=== PATIENT | female | born 1955 | race Caucasian/White ===

== ENCOUNTER 2017-03-31 21:59 | Inpatient (IN) | payer BC, SELFPAY ==
[2017-03-31] MEDS ORDERED: Labetalol HCl 100 MG/20 ML VIAL ONE (22:43)
[2017-03-31 22:45] LABS: #Basophils 0.1 thou/uL (0.0-0.2); #Eosinphils 0.2 thou/uL (0.0-0.7); #Monocytes 0.7 thou/uL (0.11-0.59); #Neutrophils 5.2 thou/uL (1.40-6.50); %Basophils 0.8 % (0.0-1.0); %Eosinophils 2.4 % (0.0-10.0); %Lymphocytes 24.4 % (21.0-51.0); %Monocytes 8.7 % (0.0-10.0); Hematocrit 49.6 % (36.0-47.0); Mean Platelet Volume 7.8 fL (7.4-10.4); Red Blood Cell (RBC) Count 5.13 mill/uL (4.20-5.40); White Blood Cell (WBC) Count 8.1 thou/uL (4.8-10.8)
[2017-03-31 23:07] LABS: Troponin I Less than 0.010 ng/mL (< 0.028)
[2017-03-31 23:12] LABS: ALT (SGPT) 20 U/L (8-55); AST (SGOT) 24 U/L (5-34); Alkaline Phosphatase 80 U/L (40-150); Anion Gap 12 mmol/L (10-20); BUN (Urea Nitrogen) 8 mg/dL (9.8-20.1); Bilirubin, Total 0.3 mg/dL (0.2-1.2); Calc. Creatinine Clearance 0 mL/min (70-130); Carbon Dioxide 28 mmol/L (23-31); Chloride 95 mmol/L (98-107); Estimated GFR-MDRD 83; Globulin 4.2 g/dL (2.4-3.5); Protein, Total 8.7 g/dL (6.0-8.3)
[2017-03-31] MEDS ORDERED: niCARdipine 20MG In NaCl 0 MG/0 ML BAG ONE (23:33)
[2017-03-31] MEDS ORDERED: Ondansetron HCl/PF 4 MG/2 ML Vial ONE (23:33)
[2017-03-31] MEDS ORDERED: niCARdipine 20MG In NaCl 20 MG/200 ML BAG IVPB SCH (23:45)
--- NOTE | 2017-03-31 23:59 | CT ---
CT HEAD WITHOUT IV CONTRAST 03/31/17 HISTORY: Headache. FINDINGS: There is no evidence of a hemorrhage, acute infarction, mass effect, or midline shift. There is scat tered low density areas seen within the periventricular white matter, nonspecific, but likely attrib utable to mild chronic small vessel ischemic changes. There is no evidence of an acute cortical infa rction, hemorrhage, mass effect or midline shift. Ventricular system is normal in size, shape and po sition. There is minimal mucosal thickening in each maxillary antrum as well as involving the ethmoi raquel air cells. There does appear to be absence of ethmoidal air cells which may be related to prior surgery. Mastoid air cells are clear. Calvarial structures are intact. IMPRESSION: 1. No acute intracranial abnormality is demonstrated. 2. Mild chronic small vessel ischemic changes. 3. Minimal sinus disease. POS: [facility]
[2017-04-01 01:55] VITALS: BMI 26.9
[2017-04-01] MEDS ORDERED: cloNIDine HCl 0.1 MG TAB PO PRN (03:17)
[2017-04-01] MEDS ORDERED: Ondansetron HCl/PF 4 MG/2 ML Vial IVP PRN (03:17)
[2017-04-01] MEDS ORDERED: Acetaminophen 500 MG TAB PO PRN (03:17)
[2017-04-01] MEDS ORDERED: Ondansetron ODT 4 MG TAB PO PRN (03:17)
--- NOTE | 2017-04-01 04:21 | HP ---
DATE OF ADMISSION: 04/01/2017 PRIMARY CARE PHYSICIAN: Howard Brown M.D. CHIEF COMPLAINT: Headache. HISTORY OF PRESENT ILLNESS: This is a 61-year-old female, who presents to [facility] complaining of increasing headache progressing over the last 3 weeks. The patien t rates this pain is 10/10, engulfing her entire head without evidence of fever, neck stiffness, or recent sick contacts. The patient denied any specific trauma, injury or high-altitude exposure. Th e patient states her symptoms are basically relieved by nothing and felt like her headache would to be improved with the addition of lisinopril started by her primary care provider. The patient state s her blood pressure trend has been increasing on initial 10 mg of lisinopril at which point her lis inopril was doubled to 20 mg daily. The patient noted that her blood pressures remained high even o n the higher dose of lisinopril and had the associated headaches. The patient denies any visual dis turbance, unilateral weakness, difficulty with speech or epistaxis. The patient denies any specific chest pain, shortness of breath, lower extremity edema, orthopnea. In the emergency room, the jessie ent underwent general evaluation with blood pressures noted in the 210s over 150s. Patient received IV labetalol; however, pressure remained elevated. The patient was placed on a Cardene infusion wi th overall improvement in blood pressure trend. The patient was transferred to the critical care un it for further evaluation. PAST MEDICAL HISTORY: 1. Hypertension, recent diagnosis. 2. History of pancreatic neuroendocrine cancer. PAST SURGICAL HISTORY: Status post oophorectomy. CURRENT MEDICATIONS: 1. Lisinopril 20 mg p.o. daily. 2. Nasacort 1 spray in each naris daily. 3. Pulmicort. 4. Simvastatin 20 mg p.o. daily. ALLERGIES: No known drug allergies. FAMILY HISTORY: Positive for hypertension. SOCIAL HISTORY: Patient is , residing in [place], [place]. 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 Occasional social alcohol use. No tobacco or illicit drug use. Functional of all activities of daily living. REVIEW OF SYSTEMS: The following complete review of systems was negative, unless otherwise mentione d in the HPI or below: Constitutional: Weight loss or gain, ability to conduct usual activities. Skin: Rash, itching. Eyes: Double vision, pain. ENT/Mouth: Nose bleeding, neck stiffness, pain, tenderness. Cardiovascular: Palpitations, dyspnea on exertion, orthopnea. Respiratory: Shortnes s of breath, wheezing, cough, hemoptysis, fever or night sweats. Gastrointestinal: Poor appetite, abdominal pain, heartburn, nausea, vomiting, constipation, or diarrhea. Genitourinary: Urgency, fr equency, dysuria, nocturia. Musculoskeletal: Pain, swelling. Neurologic/Psychiatric: Anxiety, de pression. Allergy/Immunologic: Skin rash, bleeding tendency. PHYSICAL EXAMINATION: VITAL SIGNS: On admission, blood pressure 210/152, pulse 94, respiratory rate 16, temperature 98.3 degrees Fahrenheit, O2 saturation 97% on room air. GENERAL APPEARANCE: This is a 61-year-old female, alert and oriented x3, pleasant, in no acute distress. HEENT: Pupils are equal, round, and reactive to light and accommodation. Extraocular muscles are i ntact. No scleral icterus, no conjunctival injection. Nares patent. OP is clear. Teeth in good r epair. NECK: Supple, no cervical adenopathy, no thyromegaly, no carotid bruits, no JVD appreciated. Cervi yoni spine with full active and passive range of motion. CHEST: Lungs are clear to auscultation bilaterally. CARDIOVASCULAR: S1, S2 with tachycardia. ABDOMEN: Rounded, soft, nontender, nondistended. Bowel sounds are positive in all four quadrants. There is no hepatosplenomegaly, no abdominal bruits, no rebound or guarding appreciated. EXTREMITIES: Warm and dry with fair turgor. No clubbing, cyanosis, or asymmetric edema appreciated . Pulses palpable distally at the dorsalis pedis, posterior tibial, and popliteal arteries bilatera lly. Capillary refill less than 2 seconds. NEUROLOGIC: Cranial nerves II through XII are grossly intact. No focal or lateralizing signs appre ciated. PERTINENT LABORATORY AND X-RAY FINDINGS: Sodium 132, potassium 3.3, chloride 95, CO2 of 28, BUN 8, creatinine 0.71. Estimated GFR of 83, glucose 140, calcium 10.0. LFTs within normal limits. Tropo mattie negative x1. Albumin 4.5. CBC showed a white blood cell count of 8.1, hemoglobin 16, hematocri t 50, platelet count [address] of the brain without contrast dated 7, showed mild chronic ischemic white matter changes. No acute intracranial process identified. EK G dated 03/31/2017 by my interpretation, shows sinus mechanism with rates in the 80s. Normal R-wave progression noted in the precordial leads. Normal axis. No acute ST-T wave changes appreciated. ASSESSMENT AND PLAN: 1. Hypertensive emergency. We will continue Cardene infusion, titrating to maintain systolics less than 170. We will initiate metoprolol 25 mg p.o. b.i.d. in the a.m. Continue lisinopril 20 mg p.o . daily. We will continue to titrate antihypertensive regimen based on clinical response. Check 2D transthoracic echocardiogram in the a.m. Check TSH and magnesium level. 2. Hyponatremia. Etiology unclear. We will repeat sodium level in the a.m. 3. Hypokalemia. Replace KCl with 40 mEq p.o. b.i.d. and repeat potassium level in the a.m. 4. Hyperlipidemia. We will check fasting lipid profile in the a.m. Resume Zocor after confirmatio n of home dose. 5. Prophylaxis. Sequential compression devices while in bed. Pepcid 20 mg p.o. b.i.d. 6. Code status is FULL. Surrogate medical decision maker is patient's spouse.
[2017-04-01] MEDS: niCARdipine HCl 25 MG in Sodium Chloride 0.9% 250 ML 240 ML IVPB SCH ×2 (04:36→09:25)
[2017-04-01 04:44] LABS: Band 3 % (5-11); Hematocrit 46.6 % (36.0-47.0); Mean Platelet Volume 7.8 fL (7.4-10.4); Neutrophil 75 % (42-75); Red Blood Cell (RBC) Count 4.85 mill/uL (4.20-5.40); White Blood Cell (WBC) Count 9.9 thou/uL (4.8-10.8)
[2017-04-01 04:54] LABS: Anion Gap 12 mmol/L (10-20); BUN (Urea Nitrogen) 9 mg/dL (9.8-20.1); Calc. Creatinine Clearance 107 mL/min (70-130); Carbon Dioxide 27 mmol/L (23-31); Chloride 93 mmol/L (98-107); Cholesterol 201 mg/dl (< 200 Desired); Estimated GFR-MDRD Greater than 90; LDL Cholesterol, Calculated 116 mg/dL
[2017-04-01] MEDS: Metoprolol Tartrate 25 MG TAB PO SCH ×2 (08:35→22:03)
[2017-04-01] MEDS: Potassium Chloride 20 MEQ TAB PO SCH ×2 (08:35→16:33)
[2017-04-01] MEDS ORDERED: Famotidine 20 MG TAB PO SCH (09:00)
[2017-04-01] MEDS ORDERED: Lisinopril 20 MG TAB PO SCH (09:00)
[2017-04-01] MEDS ORDERED: Morphine Sulfate 2 MG/ML SYRINGE SLOW IVP PRN (09:41)
[2017-04-01] MEDS ORDERED: Labetalol HCl 100 MG/20 ML VIAL SLOW IVP PRN (09:45)
[2017-04-01] MEDS ORDERED: Hydrochlorothiazide 25 MG TAB PO SCH (09:45)
--- NOTE | 2017-04-01 09:47 | PDOC.PN ---
- Subjective Encounter Start Date: 04/01/17 Encounter Start Time: 09:45 Ms. Messer is complaining of a severe headache which has not improved much since last night. She also is feeling very nauseated. This started this morning. - Objective Resuscitation Status: Resuscitation Status FULL:Full Resuscitation MAR Reviewed: Yes Vital Signs & Weight: Vital Signs (12 hours) Temp Pulse Resp BP Pulse Ox 04/01/17 08:35 136/92 H 04/01/17 04:00 98.5 F 04/01/17 02:00 98.6 F 04/01/17 01:45 98.6 F 97 19 89 L Weight Weight 166 lb 14.239 oz Most Recent Monitor Data Heart Rate from ECG 107 NIBP 153/100 NIBP BP-Mean 114 Respiration from ECG 11 SpO2 97 I&O: 03/31/17 04/01/17 04/02/17 06:59 06:59 06:59 Intake Total 490 Output Total 650 Balance -160 Result Diagrams: 04/01/17 04:11 04/01/17 04:11 Phys Exam - Physical Examination HEENT: PERRLA Respiratory: no wheezing, no rales, no rhonchi, clear to auscultation bilateral Cardiovascular: RRR, no significant murmur Gastrointestinal: soft, non-tender, positive bowel sounds Musculoskeletal: no edema Dx/Plan (1) Hypertensive urgency Code(s): I16.0 - HYPERTENSIVE URGENCY Status: Acute (2) Pancreas cancer Status: Acute - Plan * Hypertensive Urgency- Will add Amlodipine, and Continue Metoprolol, and Lisinopril * Wean Cardene drip. * Patient says she has had hypertension for a few years now, but in the past few months it has been harder to control. Will check renal -vacular studies to screen for MADELIN, and may also consider Nephrology consult, given the hypokalemia , as Hyperaldosteronism is a possibility as well. * Headache- ? etiology- related to the elevated blood pressure? - will observe, and treat symptomatically * Hypokalemia- replace Potassium
[2017-04-01] MEDS: Fioricet 325/50/40 mg Tablet PO PRN ×2 (10:58→16:32)
--- NOTE | 2017-04-01 12:20 | CON ---
DATE OF CONSULTATION: 04/01/2017 SERVICE: Pulmonary Medicine. REASON FOR CONSULTATION: ICU patient. HISTORY OF PRESENT ILLNESS: The patient is a 61-year-old white female with past medical history significant for hypertension. She was in her usual state of health until roughly one day prior to admission. She had onset of atypical headache. She typically gets bifrontal headache with tension in her neck. She had a similar headache that which she typically gets but this was slightly more severe than her average headache. She took some medication, but it simply did not help. She had elevated blood pressure associated with this headache into the 150s to 160s and even 170s. She notified her primary care physician and took some additional blood pressure medication, but this did not control the headache or her blood pressure. She presented to the Emergency Department and her blood pressures were in the 200s. She was subsequently admitted to the ICU on a calcium channel na drip. She currently denies fevers, chills, nausea , vomiting, chest discomfort. The headache is much improved compared to presentation. PAST MEDICAL HISTORY: 1. Hypertension. 2. Dyslipidemia. 3. Laryngitis secondary to allergic issues. 4. Asthma. PAST SURGICAL HISTORY: Oophorectomy. ALLERGIES: No known drug allergies. MEDICATIONS: List of inpatient medications were reviewed. Multiple updates were made. FAMILY HISTORY: Noncontributory. SOCIAL HISTORY: The patient is and lives in [place]. She is self-employed. She uses alcohol occasionally. She denies any alcohol or illicit drug use. She has no exposure to chemicals, dust, asbestos, or tuberculosis. REVIEW OF SYSTEMS: General, head, ears, eyes, nose, throat, cardiovascular, respiratory, GI, , musculoskeletal, neurologic and skin is negative except as mentioned in the HPI. PHYSICAL EXAMINATION: VITAL SIGNS: Afebrile, pulse 107, blood pressure 153/100, respirations 11, saturation 97% on 2 liters nasal cannula. GENERAL: Patient is awake, alert, in no apparent distress. LUNGS: Excellent air entry with no prolonged expiratory phase wheeze, rhonchi or crackles. HEART: Normal rate, regular. ABDOMEN: Soft, nontender, nondistended, bowel sounds positive. MUSCULOSKELETAL: No cyanosis or clubbing. No pitting in the bilateral lower extremities. NEUROLOGIC: Grossly nonfocal. LABORATORY DATA: WBC 9.9, hemoglobin 15.9, platelets 316,000. Sodium 129 and down trending, potassium 3.2. Chloride 93. Basic metabolic profile is otherwise unremarkable. Liver function studies are normal. TSH was normal. Cholesterol was 201 with an LDL of 116. IMAGING: CT of the brain demonstrates no acute intracranial abnormality. Small chronic ischemic changes were present. Minimal sinus changes. ASSESSMENT: 1. Migraine headache, tension type. 2. Hypertension. 3. Asthma without current exacerbation. PLAN: We will continue the lisinopril. I will add hydrochlorothiazide to the patient's current drug regimen. I agree with metoprolol. This should help with headache and her blood pressure. Pulmonary Critical Care will continue to follow while she remains in this location, but when she is off the Cardizem drip , she will be stable for transition to the floor. GALDINO
[2017-04-01 15:09] LABS: Osmolality, Urine 453 mOsm/kg (300-900)
[2017-04-01 15:22] LABS: Sodium, Urine 85 mmol/L (Not Available)
--- NOTE | 2017-04-01 16:55 | ULT ---
BILATERAL RENAL AND RENAL ARTERY ULTRASOUND: Date: 04/01/17 HISTORY: Uncontrolled hypertension. TECHNIQUE: Multiplanar Stinson scale and color Doppler images were obtained in a bilateral renal and renal artery ultrasound. Spectral analysis of the Doppler waveforms of the aorta and renal arteries were performe d. FINDINGS: The kidneys are normal in echogenicity without hydronephrosis or calculi and measure 10.0 and 10.2 c m in length on the right and left, respectively. Limited visualization of the urinary bladder is unr emarkable. Peak systolic velocity in the aorta is 96 cm/second. Peak systolic velocity in the right renal arter y is 112 cm/second. Peak systolic velocity in the left renal artery is 123 cm/second. Right renal ar esetban to aortic ratio is 1.2. Left renal artery to aortic ratio is 1.3. The resistive index of the ri ght kidney is 0.67 and the resistive index of the left kidney is 0.65. IMPRESSION: No significant renal or renal artery abnormality. POS: [facility]
[2017-04-01 17:19] LABS: Anion Gap 10 mmol/L (10-20); BUN (Urea Nitrogen) 10 mg/dL (9.8-20.1); Calc. Creatinine Clearance 101 mL/min (70-130); Calcium 9.6 mg/dL (7.8-10.44); Carbon Dioxide 29 mmol/L (23-31); Chloride 94 mmol/L (98-107); Estimated GFR-MDRD 86
[2017-04-02 06:18] LABS: Anion Gap 13 mmol/L (10-20); BUN (Urea Nitrogen) 10 mg/dL (9.8-20.1); Calc. Creatinine Clearance 99 mL/min (70-130); Calcium 9.5 mg/dL (7.8-10.44); Carbon Dioxide 23 mmol/L (23-31); Chloride 97 mmol/L (98-107); Estimated GFR-MDRD 85
--- NOTE | 2017-04-02 08:18 | PDOC.PN ---
- Subjective Encounter Start Date: 04/02/17 Encounter Start Time: 08:16 Ms. Messer is feeling much better this morning. She says her headache finally went away yesterday. - Objective Resuscitation Status: Resuscitation Status FULL:Full Resuscitation MAR Reviewed: Yes Vital Signs & Weight: Vital Signs (12 hours) Temp Pulse Resp BP Pulse Ox 04/02/17 04:30 94 L 04/02/17 04:00 98.3 F 70 18 127/87 94 L 04/02/17 00:34 93 L 04/01/17 23:45 93 L Weight Weight 166 lb 1.6 oz Most Recent Monitor Data Heart Rate from ECG 76 NIBP 104/70 NIBP BP-Mean 79 Respiration from ECG 23 SpO2 96 I&O: 04/01/17 04/02/17 04/03/17 06:59 06:59 06:59 Intake Total 490 1526 Output Total 650 1575 Balance -160 -49 Result Diagrams: 04/01/17 04:11 04/02/17 05:22 Phys Exam - Physical Examination HEENT: PERRLA Respiratory: no wheezing, no rales, no rhonchi, clear to auscultation bilateral Cardiovascular: RRR, no significant murmur Gastrointestinal: soft, non-tender, positive bowel sounds Musculoskeletal: no edema Dx/Plan (1) Hypertensive urgency Code(s): I16.0 - HYPERTENSIVE URGENCY Status: Acute (2) Pancreas cancer Status: Acute - Plan * Hypertensive Urgency- resolved * Will continue Lisinopril, and Metoprolol * No HCTZ * Hyponatremia- is most consistent with SIADH, and will fluid restrict * Stable for discharge home.
[2017-04-02] MEDS: Metoprolol Tartrate 25 MG TAB PO SCH (08:41)
[2017-04-02] MEDS: Potassium Chloride 20 MEQ TAB PO SCH (08:41)
[2017-04-02] MEDS ORDERED: Lisinopril/Hydrochlorothiazide 20/25 mg Tablet PO SCH (09:00)
[2017-04-02] MEDS ORDERED: Lisinopril 20 MG TAB PO SCH (09:00)
[2017-04-02] MEDS: Fioricet 325/50/40 mg Tablet PO PRN (11:19)
[2017-04-02 12:09] VITALS: BP 104/71; TEMP 98.7
--- NOTE | 2017-04-02 20:03 | DIS ---
PRIMARY CARE PHYSICIAN: Howard Brown M.D. DATE OF ADMISSION: 04/01/2017 DATE OF DISCHARGE: 04/02/2017 DISCHARGE DISPOSITION: Home. PRIMARY DISCHARGE DIAGNOSES: 1. Hypertensive urgency. 2. Headache. 3. History of hypertension. 4. History of neuroendocrine pancreatic cancer, status post resection. DISCHARGE MEDICATIONS: Include lisinopril 20 mg daily, metoprolol 25 mg twice a day. PROCEDURES DONE DURING ADMISSION: The patient had a renal ultrasound with studies, which was essentially negative. There is no renal artery abnormality noted. She also had a CT scan of the br ain, which was negative for any acute intracranial abnormality. There was some mild chronic small v essel ischemic changes and some minimal sinus disease. CODE STATUS: FULL CODE. ALLERGIES: To OXYTETRACYCLINE. HOSPITAL COURSE: Ms. Messer is a pleasant 61-year-old female, who presented to the emergency room c omplaining of an excruciating headache. She says that was progressing over the last 3 weeks and it was engulfing her to entire head. There was no neck stiffness or fever. She was also noted to have a blood pressure with systolics in the 200s and it significantly 210/150. She was admitted to the ICU for hypertensive urgency and started on a Cardene drip; control was achieved of her blood pressu re with the Cardene drip and then the addition of metoprolol. It was also noted that her heart rate was slightly elevated as well. Her headache improved after approximately 24 hours and could possib ly be related to either sinus problems or to the elevated blood pressure. Her sodium was low during her hospital stay, initially at 132 and then actually dropped to 129. Her urine osmolality was abby ppropriately elevated at 453, compared to her serum osmolality, which was only 272, and it is felt t hat she likely has some mild SIADH and will be discharged home on a fluid restriction. Her potassiu m was initially low but was easily replaced without any significant potassium wasting. She has been instructed to follow up with Dr. Brown within a week to have her sodium and potassium rechecked a nd will be discharged home on a 1200 mL fluid restriction. The patient admits that she has been wor chente quite a few hours, sometimes up to 18 hours a day in the last few months and I suspect this con tributed to elevation in blood pressure as well.
== END 2017-04-02 12:27 | disposition home or self-care (01) | DRG 305 ==
LOC: ERS 21:59 → CCU 23:55 → 2NO 04-01 19:24
PROVIDERS: ADMIT Family Medicine; ATTEND Family Medicine
DX: I16.0 Hypertensive urgency (principal); E22.2 Syndrome of inappropriate secretion of antidiuretic hormone; I16.1 Hypertensive emergency; Z85.07 Personal history of malignant neoplasm of pancreas; I10 Essential (primary) hypertension; E87.6 Hypokalemia; E86.0 Dehydration; Z90.721 Acquired absence of ovaries, unilateral; E78.5 Hyperlipidemia, unspecified; G43.809 Other migraine, not intractable, without status migrainosus; J45.909 Unspecified asthma, uncomplicated
CPT/HCPCS: 36415; 70450; 76700; 76770; 80048; 80053; 80061; 82553; 83735; 83930; 83935; 84133; 84300; 84443; 84484; 85007; 85025; 85027; 93005; 93306; 96365; 96366; 96375; J2405; J7050

== ENCOUNTER 2017-05-19 16:18 | Inpatient (IN) | payer SELFPAY ==
[~2017-05-19 16:18] MED LIST: ISOVUE-370 76%-LOCM 1 ML ONE
[2017-05-19] MEDS ORDERED: Morphine 4 MG/ML VIAL ONE (17:12)
[2017-05-19] MEDS ORDERED: Ondansetron HCl/PF 4 MG/2 ML Vial ONE (17:12)
--- NOTE | 2017-05-19 17:19 | CT ---
CT HEAD: Indication: Pain, headache. Comparison: 03-31-17 FINDINGS: No evidence of intracranial hemorrhage, mass effect, midline shift or ventriculomegaly. There has bee n no significant interval detrimental change from recent comparison exam. IMPRESSION: Stable head CT without acute intracranial abnormality identified. POS: [facility]
[2017-05-19 17:27] LABS: #Lymphocytes 1.4 thou/uL (1.20-3.40); #Monocytes 0.7 thou/uL (0.11-0.59); #Neutrophils 5.9 thou/uL (1.40-6.50); %Basophils 0.6 % (0.0-1.0); %Eosinophils 0.5 % (0.0-10.0); %Lymphocytes 17.6 % (21.0-51.0); %Monocytes 8.9 % (0.0-10.0); Mean Platelet Volume 7.5 fL (7.4-10.4); Red Blood Cell (RBC) Count 4.76 mill/uL (4.20-5.40); White Blood Cell (WBC) Count 8.2 thou/uL (4.8-10.8)
[2017-05-19 17:52] LABS: ALT (SGPT) 19 U/L (8-55); AST (SGOT) 45 U/L (5-34); Alkaline Phosphatase 62 U/L (40-150); Anion Gap 18 mmol/L (10-20); BUN (Urea Nitrogen) 6 mg/dL (9.8-20.1); Bilirubin, Total 0.5 mg/dL (0.2-1.2); Calc. Creatinine Clearance 0 mL/min (70-130); Carbon Dioxide 21 mmol/L (23-31); Chloride 96 mmol/L (98-107); Estimated GFR-MDRD Greater than 90; Globulin 3.9 g/dL (2.4-3.5); Lipase 41 U/L (8-78); Magnesium 1.8 mg/dL (1.6-2.6); Protein, Total 8.2 g/dL (6.0-8.3)
[2017-05-19 17:55] LABS: Troponin I Less than 0.010 ng/mL (< 0.028)
[2017-05-19] MEDS ORDERED: Lisinopril 10 MG TAB ONE (18:50)
[2017-05-19 18:55] LABS: Bilirubin Negative (Negative); Blood, Urine Negative (Negative); Glucose, Urine (Dipstick) Negative (Negative); Ketone, Urine > or equal to 80 mg/dL (Negative); Nitrite Negative (Negative); Protein, Urine (Dipstick) 100 mg/dL (Neg-Trace); Urobilinogen 0.2 mg/dL (0.2-1.0)
[2017-05-19 18:58] LABS: Bacteria/HPF 1+ HPF (None Seen); RBC/HPF 0-3 HPF (0-3)
[2017-05-19 19:12] LABS: Renal Epithelial None Seen HPF (0-3); Transitional Epithelial NONE SEEN HPF (0-3)
[2017-05-19 19:13] LABS: Hyaline Casts/LPF 7-10 HYALINE CAST LPF (0-3 Hyaline)
[2017-05-19] MEDS ORDERED: Ketorolac Tromethamine 30 MG/ML VIAL ONE (19:23)
[2017-05-19] MEDS ORDERED: Metoclopramide HCl 10 MG/2 ML VIAL ONE (19:23)
[2017-05-19] MEDS ORDERED: cloNIDine 0.1 MG TAB ONE (20:43)
--- NOTE | 2017-05-19 20:52 | PDOC.EVN ---
Event Note - Event Note Event Note: [id number] H&P Dictated 1. Metastatic malignancy 2. Abdominal pain + Nausea and vomiting 3. H/O HTN plan: see orders
--- NOTE | 2017-05-19 23:00 | CT ---
CT CHEST WITH CONTRAST: Indication: Pain. Evaluation for metastatic disease. FINDINGS: There is mild left pleural effusion. Mild pleural based irregularity in the posterior aspect of the r ight hemithorax is present. There are patchy densities at the lingula favoring atelectasis and there is mild linear density of the right middle lobe, subpleural in location which may also relate to a mi ld component of atelectasis. Nonspecific mild ground glass opacities are seen bilaterally, most notab le within the left lower lobe. There is no pneumothorax. No pulmonary mass or suspicious nodule visua lized. Tracheobronchial air column is patent. No thoracic adenopathy. There are incompletely assessed abnormalities of the upper abdomen including hypoattenuating foci of the hepatic parenchyma, multifo yoni as well as upper abdominal ascites, evidence to indicate prior partial resection of the pancreas. There are no acute osseous abnormalities visualized. There is incidental note of vicarious excretion of contrast medial within the gallbladder lumen. IMPRESSION: 1. Nonspecific mild volume left pleural effusion. Correlate clinically. 2. No pulmonary mass or discrete pulmonary nodule. There are nonspecific ground glass opacities most notably within the left lower lobe. 3. There is incompletely assessed abnormality of the upper abdomen. Findings are likely on the basis of metastatic pancreatic cancer given findings of partial resection of the pancreas and foci of hypoa ttenuation within the liver as well as ascites. Correlate with dedicated imaging. POS: [facility]
[2017-05-19] MEDS: Sodium Chloride 0.9% 1,000 ML IV SCH (23:02)
--- NOTE | 2017-05-20 02:39 | HP ---
DATE OF ADMISSION: 05/19/2017 CHIEF COMPLAINT: Abdominal pain, nausea, vomiting. HISTORY OF PRESENT ILLNESS: Patient is a 61-year-old female with past medical history of hypertension, neuroendocrine tumor, currently not on any treatment, came to the hospital complaining of nausea and vomiting. Patient says she started having numerous episodes of nausea and vomiting since this morning. Denies any blood in the vomit complains of abdominal pain. Abdominal pain is all over the abdomen, constant pain, complains of abdominal bloating also. Abdominal pain is moderate in intensity, no aggravating factors, no relieving factors. Denies any blood in the stool. Denies any black stools. Patient states she has a history of neuroendocrine tumor for which she had a partial pancreatectomy, splenectomy, and left oophorectomy done in approximately 1 year back and patient did chemotherapy in 2014. Also, patient lost to follow up since May. Patient had a PET scan done in May, which was negative. After that she lost her insurance, so she did not have any follow up. Patient started having abdominal distention 1 month back in March. Since then the distention persisted, so the patient has had a CT scan done as an outpatient. Yesterday, patient was told she has a malignant mass in the abdomen. Also, denies any chest pain, denies any trouble breathing. PAST MEDICAL HISTORY: Hypertension, neuroendocrine tumor. PAST SURGICAL HISTORY: Status post history of partial pancreatectomy, oophorectomy, and a splenectomy. SOCIAL HISTORY: Denies smoking, denies alcohol, denies any drugs. ALLERGIES: No known drug allergies. MEDICATIONS: Reviewed. REVIEW OF SYSTEMS: Constitutional: Denies any fever, denies any chills. Eyes : Denies any vision problems. Ears: Denies any hearing loss. Neck: Denies any neck pain. Cardiovascular System: Denies any chest pain. Respiratory System: Denies any cough, denies any sputum production. Gastrointestinal: Positive for abdominal pain. Positive for nausea, vomiting. Genitourinary: Denies dysuria. Musculoskeletal: Denies any joint deformities. Integument: Denies any rash. Cranial nerve system: Denies syncope. All other review of systems are reviewed and are negative. PHYSICAL EXAMINATION: CONSTITUTIONAL/VITAL SIGNS: At the time of H&P performed, blood pressure is 159 /107, heart rate 118, pulse ox 97%. GENERAL: The patient appears comfortable. HEENT: Pupils are equal, round, and reactive. Anterior nares patent. Nose normal. Ears normal. Teeth intact. NECK: Supple, no JVD. CARDIOVASCULAR: S1, S2 present. Regular rate and rhythm. No murmurs, no rubs , no gallops. RESPIRATORY SYSTEM: No wheezing, no rhonchi. Breath sounds bilaterally. GASTROINTESTINAL: Abdomen is distended. Positive for abdominal bloating. Mild tender to palpate. Positive for ascites. No guarding, no rebound tenderness. MUSCULOSKELTAL: Trace edema. CRANIAL NERVE SYSTEM: Awake. Follows commands. Strength intact. Sensory intact. PSYCHIATRIC: Mood appropriate at this time. INTEGUMENTARY: No obvious rashes seen. LABORATORY DATA: At the time of H&P performed, white count 8.2, hemoglobin 15.1 , platelet count is 435. BMP shows sodium 131, potassium 3.7, chloride 96, CO2 is 21, BUN of 16.65, AST 45, ALT 19. Troponin less than 0.010. Serum total protein 8.2, albumin 3.9. UA greater than or equal to 80 ketones, wbc 4-6, bacteria 1+. IMAGING: CT head, no acute disease seen. ASSESSMENT AND PLAN: Patient is a 61-year-old female: 1. Positive for metastatic malignancy. We will go ahead and get an MRI of the abdomen and pelvis done. We will get CT chest also to rule out any meds. We will monitor patient closely. We will consult Hematology/Oncology to evaluate the patient. 2. Nausea, vomiting, abdominal pain. P.r.n. antiemetics. P.r.n. pain medications. 3. History of hypertension. Continue home blood pressure meds. 4. Case was discussed in detail with the patient and patient's family members also. GALDINO
[2017-05-20 05:07] LABS: #Eosinphils 0.2 thou/uL (0.0-0.7); #Lymphocytes 1.9 thou/uL (1.20-3.40); #Monocytes 1.3 thou/uL (0.11-0.59); #Neutrophils 6.3 thou/uL (1.40-6.50); %Basophils 0.5 % (0.0-1.0); %Eosinophils 1.6 % (0.0-10.0); %Lymphocytes 19.9 % (21.0-51.0); %Monocytes 13.5 % (0.0-10.0); Hematocrit 38.4 % (36.0-47.0); Mean Platelet Volume 7.4 fL (7.4-10.4); Red Blood Cell (RBC) Count 3.97 mill/uL (4.20-5.40); White Blood Cell (WBC) Count 9.7 thou/uL (4.8-10.8)
[2017-05-20 05:20] LABS: Anion Gap 13 mmol/L (10-20); BUN (Urea Nitrogen) 5 mg/dL (9.8-20.1); Calc. Creatinine Clearance 125 mL/min (70-130); Calcium 8.9 mg/dL (7.8-10.44); Carbon Dioxide 19 mmol/L (23-31); Chloride 101 mmol/L (98-107); Estimated GFR-MDRD Greater than 90
[2017-05-20] MEDS: Enoxaparin Sodium 40 MG/0.4 ML SYRINGE SC SCH (08:40)
[2017-05-20] MEDS: Famotidine 20 MG TAB PO SCH ×2 (08:40→21:48)
[2017-05-20] MEDS: Acetaminophen 325 MG TAB PO PRN (10:26)
[2017-05-20] MEDS ORDERED: HYDROcodone/Acetaminophen 5/325 mg Tablet PO PRN (11:16)
--- NOTE | 2017-05-20 12:21 | CON ---
DATE OF CONSULTATION: 05/20/2017 REASON FOR CONSULTATION: Pancreatic cancer. HISTORY OF PRESENT ILLNESS: Ms. Messer is an unfortunate 61-year-old female who was diagnosed with a neuroendocrine pancreatic cancer in 2014. She was seen by MD Dias where she received neoadjuvant chemotherapy. She then underwent a partial resection of her pancreas with splenectomy and removal of her ovary. This was in 12/2015. She was last seen by MD Dias in 05/2016 when she had a PET scan. She states that she had no evidence of disease. She was lost to follow up secondary to no insurance. Over the past 6 weeks, she has had increasing abdominal distention and early satiety. She was seen by Dr. Jimmy Weeks earlier this week. He ordered an abdominal and pelvis CT that showed multiple peritoneal-based soft tissue masses consistent with peritoneal carcinomatosis. She had a left pleural effusion. There was a stable pancreatic head cystic mass when compared to the CT in 2014. She had a hyperdense mass in the left hip joint capsule, thought to be a ganglion cyst. She presented to our emergency room yesterday with abdominal pain. She had a chest CT which again showed the left pleural effusion. There were no pulmonary nodules noted. She had a brain CT performed which was negative for metastatic disease. The patient admits to a 10-pound weight loss over the last few weeks; early satiety with abdominal distention and bloating. She complains of fatigue and occasional shortness of breath, denies any chest pain, no rectal bleeding. PAST MEDICAL HISTORY: 1. Pancreatic cancer status post chemoradiation and resection in 2015. 2. Hypertension. PAST SURGICAL HISTORY: 1. Partial pancreatectomy. 2. Splenectomy. 3. Oophorectomy. ALLERGIES: No known drug allergies. HOME MEDICATIONS: Lisinopril 20 mg daily, Lopressor 25 mg b.i.d. FAMILY HISTORY: Her father had pancreatic cancer. SOCIAL HISTORY: Single, has 5 children. No alcohol, tobacco or illicit drug use. REVIEW OF SYSTEMS: Twelve-point review of systems is negative except for noted in HPI. PHYSICAL EXAMINATION: VITAL SIGNS: Temperature is 98.3, pulse is 112, respiratory rate 16, BP is 130/ 81. She is 96% on room air. GENERAL: Well-developed, well-nourished female in no acute distress. HEENT: Normocephalic, atraumatic. Pupils are equal and reactive to light. NECK: Supple. CARDIOVASCULAR: Regular rate and rhythm. LUNGS: Clear. ABDOMEN: Distended and nontender. There is no ascites. Bowel sounds are positive. EXTREMITIES: No clubbing, cyanosis or edema. SKIN: No rash. HEMATOLOGIC: No petechia or purpura. NEUROLOGIC: Nonfocal. PSYCHIATRIC: The patient is alert and oriented and appropriate. PERTINENT LABORATORY AND X-RAYS: Current WBCs are 9.7, hemoglobin 12.4, hematocrit 38.4, platelet count 391,000. She has got 65% neutrophils, 20% lymphocytes. Sodium is 129, potassium 3.5, chloride is 101, CO2 is 21, BUN is 5 , creatinine 0.55, calcium is 8.9, magnesium 1.8, total bilirubin is 0.5, AST is 45, ALT is 19, alkaline phosphatase 62, CK-MB is 1. Troponin is less than 0.010. Protein is 8.2, albumin 4.3, globulin is 3.9, lipase 41. TSH is normal. Urine shows 1+ bacteria. ASSESSMENT: Recurrent metastatic pancreatic cancer. DISCUSSION: The patient is a candidate for chemotherapy. Her pancreatic cancer has recurred less than a year and a half after resection and chemotherapy. I will check tumor markers. Her pain is controlled, would recommend going home with [facility] p.r.n. She will have a followup appointment next week in the office on to discuss treatment options. We have requested her medical records from [facility] and social worker to see the patient prior to discharge to discuss what funding could be available for her. Thank you for the consult. GALDINO
--- NOTE | 2017-05-20 13:33 | PDOC.PN ---
- Subjective Encounter Start Date: 05/20/17 Encounter Start Time: 13:00 Subjective: Feels better. -: +nausea, abdominal pain.. Alert, in no acute distress. - Objective Vital Signs & Weight: Vital Signs (12 hours) Temp Pulse Resp BP Pulse Ox 05/20/17 11:17 98.3 F 112 H 16 130/81 96 05/20/17 08:00 99.1 F 99 18 99 05/20/17 07:00 99.1 F 99 18 111/80 96 Weight Weight 164 lb 14.845 oz Result Diagrams: 05/20/17 04:50 05/20/17 04:50 Phys Exam - Physical Examination HEENT: sclera anicteric Neck: no JVD Respiratory: clear to auscultation bilateral Cardiovascular: RRR Gastrointestinal: soft Musculoskeletal: no edema Neurological: moves all 4 limbs Psychiatric: A&O x 3 Dx/Plan (1) Hypertensive urgency Code(s): I16.0 - HYPERTENSIVE URGENCY Status: Acute Comment: BP satisfactory.. (2) Pancreas cancer Status: Acute Plan: Seen by oncology & palliative care.. Continue supportive therapy. - Plan * .
[2017-05-20] MEDS: HYDROcodone/Acetaminophen 5/325 mg Tablet PO PRN ×2 (13:40→17:46)
[2017-05-20] MEDS: Sodium Chloride 0.9% 1,000 ML IV SCH (16:17)
[2017-05-20] MEDS: Ondansetron HCl/PF 4 MG/2 ML Vial IVP PRN (19:43)
[2017-05-21] MEDS: Ondansetron HCl/PF 4 MG/2 ML Vial IVP PRN ×3 (04:55→18:27)
[2017-05-21] MEDS: Famotidine 20 MG TAB PO SCH ×2 (08:26→20:46)
[2017-05-21] MEDS: Metoprolol Tartrate 25 MG TAB PO SCH ×2 (08:26→20:47)
[2017-05-21] MEDS: Lisinopril 20 MG TAB PO SCH (08:26)
[2017-05-21] MEDS: Enoxaparin Sodium 40 MG/0.4 ML SYRINGE SC SCH (08:27)
[2017-05-21] MEDS: Sodium Chloride 0.9% 1,000 ML IV SCH (13:18)
--- NOTE | 2017-05-21 13:46 | PDOC.PN ---
- Subjective Encounter Start Date: 05/21/17 Encounter Start Time: 13:20 +Pain, nausea.. - Objective Vital Signs & Weight: Vital Signs (12 hours) Temp Pulse Resp BP BP Pulse Ox 05/21/17 11:07 98.2 F 85 16 139/87 95 05/21/17 08:00 98.9 F 108 H 18 94 L 05/21/17 07:22 98.9 F 108 H 18 153/97 H 94 L Weight Weight 164 lb 14.845 oz I&O: 05/20/17 05/21/17 05/22/17 06:59 06:59 06:59 Intake Total 1300 Balance 1300 Result Diagrams: 05/20/17 04:50 05/20/17 04:50 Phys Exam - Physical Examination HEENT: PERRLA Neck: no JVD Respiratory: clear to auscultation bilateral Cardiovascular: RRR Gastrointestinal: soft, no distention Musculoskeletal: no edema Neurological: moves all 4 limbs Psychiatric: A&O x 3 Dx/Plan (1) Hypertensive urgency Code(s): I16.0 - HYPERTENSIVE URGENCY Status: Chronic Comment: BP satisfactory.. (2) Pancreas cancer Status: Acute Plan: Seen by oncology. Continue supportive therapy. - Plan * .
[2017-05-21] MEDS ORDERED: Morphine 4 MG/ML Carpuject SLOW IVP PRN (13:49)
[2017-05-21] MEDS: Mometasone Furoate 120 PUFF 220 MCG INH SCH (18:15)
[2017-05-21] MEDS: Morphine PF 1 MG/ML SYR IVP PRN (18:24)
[2017-05-21] MEDS: Senokot 8.6 MG TAB PO SCH (20:47)
[2017-05-21] MEDS ORDERED: [UNRECOGNIZED DRUG - REMARK] FS SCH (21:00)
[2017-05-22] MEDS: Ondansetron HCl/PF 4 MG/2 ML Vial IVP PRN ×2 (01:32→07:41)
[2017-05-22] MEDS: Fluticasone Propionate Nasal Spray 16 gm Bottle NASAL SCH ×3 (06:33→22:51)
[2017-05-22] MEDS: Acetaminophen 325 MG TAB PO PRN (07:49)
[2017-05-22] MEDS: Senokot 8.6 MG TAB PO SCH ×2 (08:00→21:02)
[2017-05-22] MEDS: Loratadine 10 MG TAB PO SCH (08:00)
[2017-05-22] MEDS: Famotidine 20 MG TAB PO SCH ×2 (08:01→21:02)
[2017-05-22] MEDS: Metoprolol Tartrate 25 MG TAB PO SCH ×2 (08:01→21:02)
[2017-05-22] MEDS: Enoxaparin Sodium 40 MG/0.4 ML SYRINGE SC SCH (08:01)
[2017-05-22] MEDS: Lisinopril 20 MG TAB PO SCH (08:01)
[2017-05-22] MEDS: Sodium Chloride 0.9% 1,000 ML IV SCH (09:49)
--- NOTE | 2017-05-22 14:01 | PDOC.PN ---
- Subjective Encounter Start Date: 05/22/17 Encounter Start Time: 13:50 Subjective: No new complaint. -: Feels somewhat better - Objective Vital Signs & Weight: Vital Signs (12 hours) Temp Pulse Resp BP BP Pulse Ox 05/22/17 08:01 158/84 H 05/22/17 08:00 98 F 91 16 158/84 H 95 Weight Weight 164 lb 14.845 oz I&O: 05/21/17 05/22/17 05/23/17 06:59 06:59 06:59 Intake Total 1300 Balance 1300 Result Diagrams: 05/20/17 04:50 05/20/17 04:50 Phys Exam - Physical Examination Constitutional: NAD HEENT: sclera anicteric Neck: no JVD Respiratory: clear to auscultation bilateral Cardiovascular: RRR Gastrointestinal: soft Musculoskeletal: no edema Neurological: moves all 4 limbs Psychiatric: A&O x 3 Dx/Plan (1) Hypertensive urgency Code(s): I16.0 - HYPERTENSIVE URGENCY Status: Chronic Comment: BP satisfactory.. (2) Pancreas cancer Status: Acute Plan: Supportive therapy.. Analgesics prn. - Plan -: Home tomorrow. -: f/u with oncologist as outpatient. * .
[2017-05-22] MEDS: ONDANSETRON IVPB SCH ×2 (14:02→22:52)
[2017-05-22] MEDS: SODIUM CHLORIDE 0.9% IVPB SCH ×2 (14:02→22:52)
[2017-05-22] MEDS: DEXAMETHASONE IVPB SCH ×2 (14:02→22:52)
[2017-05-22] MEDS: Mometasone Furoate 120 PUFF 220 MCG INH SCH (19:37)
[2017-05-22] MEDS: Docusate 100 MG CAP PO SCH (21:02)
[2017-05-22] MEDS: Morphine PF 1 MG/ML SYR IVP PRN (22:57)
[2017-05-23] MEDS: ONDANSETRON IVPB SCH ×3 (05:52→21:59)
[2017-05-23] MEDS: DEXAMETHASONE IVPB SCH ×3 (05:52→21:59)
[2017-05-23] MEDS: SODIUM CHLORIDE 0.9% IVPB SCH ×3 (05:52→21:59)
[2017-05-23] MEDS: Sodium Chloride 0.9% 1,000 ML IV SCH (08:29)
[2017-05-23] MEDS: Lisinopril 20 MG TAB PO SCH (08:37)
[2017-05-23] MEDS: Docusate 100 MG CAP PO SCH (08:37)
[2017-05-23] MEDS: Famotidine 20 MG TAB PO SCH ×2 (08:37→20:50)
[2017-05-23] MEDS: Metoprolol Tartrate 25 MG TAB PO SCH ×2 (08:37→20:50)
[2017-05-23] MEDS: Loratadine 10 MG TAB PO SCH (08:38)
[2017-05-23] MEDS: Senokot 8.6 MG TAB PO SCH (08:38)
[2017-05-23] MEDS: Enoxaparin Sodium 40 MG/0.4 ML SYRINGE SC SCH (08:38)
[2017-05-23] MEDS: Polyethylene Glycol 3350 17 GM Packet PO SCH (08:38)
[2017-05-23] MEDS: Fluticasone Propionate Nasal Spray 16 gm Bottle NASAL SCH ×2 (08:40→20:51)
[2017-05-23 10:08] LABS: #Lymphocytes 0.9 thou/uL (1.20-3.40); #Monocytes 0.3 thou/uL (0.11-0.59); #Neutrophils 8.7 thou/uL (1.40-6.50); %Eosinophils 0.4 % (0.0-10.0); %Lymphocytes 9.2 % (21.0-51.0); Hematocrit 40.4 % (36.0-47.0); Mean Platelet Volume 7.8 fL (7.4-10.4); Red Blood Cell (RBC) Count 4.26 mill/uL (4.20-5.40); White Blood Cell (WBC) Count 9.9 thou/uL (4.8-10.8)
[2017-05-23 10:29] LABS: ALT (SGPT) 21 U/L (8-55); AST (SGOT) 44 U/L (5-34); Alkaline Phosphatase 51 U/L (40-150); Anion Gap 12 mmol/L (10-20); BUN (Urea Nitrogen) 5 mg/dL (9.8-20.1); Bilirubin, Total 0.4 mg/dL (0.2-1.2); Calc. Creatinine Clearance 111 mL/min (70-130); Calcium 9.2 mg/dL (7.8-10.44); Carbon Dioxide 24 mmol/L (23-31); Chloride 95 mmol/L (98-107); Estimated GFR-MDRD Greater than 90; Globulin 3.3 g/dL (2.4-3.5); Magnesium 1.9 mg/dL (1.6-2.6); Phosphorus 2.8 mg/dL (2.3-4.7); Protein, Total 6.9 g/dL (6.0-8.3)
[2017-05-23] MEDS: Lorazepam 2 MG/ML VIAL SLOW IVP PRN (10:45)
[2017-05-23] MEDS: NS 0.9% w/ 40 MEQ KCL 1,000 ML IV SCH (12:49)
[2017-05-23] MEDS: Potassium Chloride 10 MEQ TAB PO SCH ×2 (12:49→17:32)
--- NOTE | 2017-05-23 16:30 | PDOC.PN ---
- Subjective Encounter Start Date: 05/23/17 Encounter Start Time: 12:15 Patient seen and examined. Nausea +. No overnight events - Objective MAR Reviewed: Yes Vital Signs & Weight: Vital Signs (12 hours) Temp Pulse Resp BP BP Pulse Ox 05/23/17 08:37 164/92 H 05/23/17 08:00 98.4 F 99 17 05/23/17 07:55 98.4 F 99 17 166/89 H 95 Weight Weight 164 lb 14.845 oz I&O: 05/22/17 05/23/17 05/24/17 06:59 06:59 06:59 Intake Total 2029 Balance 2029 Result Diagrams: 05/23/17 09:52 05/23/17 09:52 Phys Exam - Physical Examination Constitutional: NAD Respiratory: no wheezing, no rhonchi Cardiovascular: RRR, no rub Gastrointestinal: soft, positive bowel sounds mild gen tenderness, No rebound/guarding Musculoskeletal: no edema Neurological: non-focal, moves all 4 limbs Psychiatric: A&O x 3 Dx/Plan - Plan DVT proph w/SCDs IMPRESSION: 1. Abd pain/N/V due to recurrent Pancreatic cancer with peritoneal carcinomatosis 2. Dehydration 3. Hyponatremia/Hypokalemia 4. Hypoglycemia - due to poor appetite 5. HTN 6. 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 Dyspnea, Edema, Light Headedness - Medications/Allergies Allergies/Adverse Reactions: Allergies Allergy/AdvReac Type Severity Reaction Status Date / Time oxytetracycline Allergy Verified 04/01/17 02:55 [From Terramycin] Medications: Current Medications Acetaminophen (Tylenol) 650 mg PO Q4H PRN PRN Reason: Headache/Fever or Pain Last Admin: 05/22/17 07:49 Dose: 650 mg Hydrocodone Bitart/Acetaminophen ([place] 5/325) 1 tab PO Q4H PRN PRN Reason: Mild-Moderate Pain (1-5) Hydrocodone Bitart/Acetaminophen ([place] 5/325) 2 tab PO Q4H PRN PRN Reason: Moderate to Severe Pain (6-10) Last Admin: 05/20/17 17:46 Dose: 2 tab Docusate Sodium (Colace) 100 mg PO BID [facility] Last Admin: 05/23/17 08:37 Dose: 100 mg Enoxaparin Sodium (Lovenox) 40 mg SC 0900 [facility] Last Admin: 05/23/17 08:38 Dose: 40 mg Famotidine (Pepcid) 20 mg PO BID [facility] Last Admin: 05/23/17 08:37 Dose: 20 mg Fluticasone Propionate (Flonase Nasal [place]) 0 gm NASAL BID [facility] Last Admin: 05/23/17 08:40 Dose: 2 spr Ondansetron HCl 10 mg/Dexamethasone 6 mg/ Sodium Chloride 55.6 mls @ 111.2 mls/ hr IVPB Q8HR [facility] Last Admin: 05/23/17 13:31 Dose: 55.6 mls Potassium Chloride/Sodium Chloride (Ns 0.9% W/ 40 Meq Kcl) 1,000 mls @ 50 mls/ hr IV .Q20H [facility] Last Admin: 05/23/17 12:49 Dose: 1,000 mls Lisinopril (Zestril) 20 mg PO DAILY [facility] Last Admin: 05/23/17 08:37 Dose: 20 mg Loratadine (Claritin) 10 mg PO QAM [facility] Last Admin: 05/23/17 08:38 Dose: 10 mg Lorazepam (Ativan) 0.5 mg SLOW IVP Q6H PRN PRN Reason: Anxiety/Agitation Last Admin: 05/23/17 10:45 Dose: 0.5 mg Lorazepam (Ativan) 0.5 mg PO Q4H PRN PRN Reason: Anxiety Metoprolol Tartrate (Lopressor) 25 mg PO BID [facility] Last Admin: 05/23/17 08:37 Dose: 25 mg Mometasone Furoate (Asmanex Twisthaler) 1 puff INH 1830 [facility] Last Admin: 05/22/17 19:37 Dose: 1 puff Morphine Sulfate (Duramorph) 2 mg IVP Q4H PRN PRN Reason: MOD TO SEVERE PAIN Last Admin: 05/22/17 22:57 Dose: 2 mg Polyethylene Glycol (Miralax) 17 gm PO DAILY [facility] Last Admin: 05/23/17 08:38 Dose: 17 gm Potassium Chloride (Klor-Con 10) 10 meq PO TID-WM [facility] Last Admin: 05/23/17 12:49 Dose: 10 meq Senna (Senokot) 1 tab PO BID [facility] Last Admin: 05/23/17 08:38 Dose: 1 tab Sodium Chloride (Flush - Normal Saline) 10 ml IVF Q12HR [facility] Last Admin: 05/23/17 09:07 Dose: 10 ml Sodium Chloride (Flush - Normal Saline) 10 ml IVF PRN PRN PRN Reason: Saline Flush Last Admin: 05/20/17 21:49 Dose: 10 ml
[2017-05-23] MEDS: Mometasone Furoate 120 PUFF 220 MCG INH SCH (18:35)
[2017-05-23] MEDS: Senokot S 8.6-50 MG TAB PO SCH (20:49)
[2017-05-23] MEDS: Lorazepam 0.5 MG TAB PO PRN (22:02)
[2017-05-24] MEDS: ONDANSETRON IVPB SCH ×2 (06:01→16:13)
[2017-05-24] MEDS: DEXAMETHASONE IVPB SCH ×2 (06:01→16:13)
[2017-05-24] MEDS: SODIUM CHLORIDE 0.9% IVPB SCH ×2 (06:01→16:13)
[2017-05-24 06:18] LABS: Anion Gap 11 mmol/L (10-20); BUN (Urea Nitrogen) 5 mg/dL (9.8-20.1); Calc. Creatinine Clearance 132 mL/min (70-130); Calcium 8.9 mg/dL (7.8-10.44); Carbon Dioxide 25 mmol/L (23-31); Chloride 97 mmol/L (98-107); Estimated GFR-MDRD Greater than 90
[2017-05-24] MEDS: Metoprolol Tartrate 25 MG TAB PO SCH ×2 (08:20→20:12)
[2017-05-24] MEDS: Potassium Chloride 10 MEQ TAB PO SCH ×3 (08:20→17:29)
[2017-05-24] MEDS: Senokot S 8.6-50 MG TAB PO SCH (08:21)
[2017-05-24] MEDS: Lisinopril 20 MG TAB PO SCH (08:21)
[2017-05-24] MEDS: Loratadine 10 MG TAB PO SCH (08:21)
[2017-05-24] MEDS: Famotidine 20 MG TAB PO SCH ×2 (08:23→20:13)
[2017-05-24] MEDS: Enoxaparin Sodium 40 MG/0.4 ML SYRINGE SC SCH (08:23)
[2017-05-24] MEDS: Morphine PF 1 MG/ML SYR IVP PRN ×3 (08:30→21:56)
[2017-05-24] MEDS: Polyethylene Glycol 3350 17 GM Packet PO SCH (10:36)
[2017-05-24] MEDS: NS 0.9% w/ 40 MEQ KCL 1,000 ML IV SCH (10:44)
[2017-05-24] MEDS: Fluticasone Propionate Nasal Spray 16 gm Bottle NASAL SCH ×2 (12:59→20:14)
[2017-05-24] MEDS: Mometasone Furoate 120 PUFF 220 MCG INH SCH (19:54)
[2017-05-24] MEDS: Docusate 100 MG CAP PO SCH (20:13)
[2017-05-24] MEDS: hydrALAZINE 20 MG/ML VIAL SLOW IVP PRN (21:09)
--- NOTE | 2017-05-24 23:25 | PDOC.PN ---
- Subjective Encounter Start Date: 05/24/17 Encounter Start Time: 09:15 Patient seen and examined. Back pain on and off radiating to front b/l. No overnight events. Poor appetite - Objective MAR Reviewed: Yes Vital Signs & Weight: Vital Signs (12 hours) Temp Pulse Resp BP BP Pulse Ox 05/24/17 21:45 128/90 05/24/17 21:09 94 165/100 H 05/24/17 21:08 94 165/100 H 05/24/17 19:54 94 16 96 05/24/17 19:44 98.4 F 77 16 142/100 H 97 Weight Admit Weight 164 lb 14.832 oz Weight 164 lb 14.832 oz I&O: 05/23/17 05/24/17 05/25/17 06:59 06:59 06:59 Intake Total 2029 2469 1619 Output Total 1 2 Balance 2029 2469 1617 Result Diagrams: 05/23/17 09:52 05/24/17 05:40 Additional Labs: Laboratory Tests 05/24/17 05/24/17 05:40 05:40 Serum Osmolality 268 L Cortisol 4.60 Radiology Reviewed by me: No (CT abd - no osseus mets) Phys Exam - Physical Examination Constitutional: NAD Respiratory: no wheezing, no rhonchi Cardiovascular: RRR, no rub Gastrointestinal: soft, non-tender, no distention, positive bowel sounds Musculoskeletal: no edema some paraspinal tend - left Neurological: moves all 4 limbs Psychiatric: A&O x 3 Dx/Plan - Plan cont current plan of care, out of bed/ambulate, DVT proph w/SCDs IMPRESSION: 1. Abd pain/N/V due to recurrent Pancreatic cancer with peritoneal carcinomatosis - appetite slowly improving. Oncology following 2. Dehydration - on IV fluids 3. Hyponatremia/Hypokalemia - prob due to poor oral intake 4. Hypoglycemia - due to poor appetite - improved 5. HTN 6. Constipation - resolved 7. Back pain - prob musculoskeletal PLAN: * Oncology following * Cont IV fluids * treat constipation with stool softeneer * Cont current meds as below * Ambulate * AM labs Review of Systems - Review of Systems Constitutional: negative: Fever, Chills, Sweats, Weakness, Malaise Respiratory: negative: Cough, Dry, Shortness of Breath, Hemoptysis, SOB with Excertion, Pleuritic Pain, Sputum, Wheezing Cardiovascular: negative: Chest Pain, Palpitations, Orthopnea, Paroxysmal Noc. Dyspnea, Edema, Light Headedness - Medications/Allergies Allergies/Adverse Reactions: Allergies Allergy/AdvReac Type Severity Reaction Status Date / Time oxytetracycline Allergy Verified 04/01/17 02:55 [From Terramycin] Medications: Current Medications Acetaminophen (Tylenol) 650 mg PO Q4H PRN PRN Reason: Headache/Fever or Pain Last Admin: 05/22/17 07:49 Dose: 650 mg Hydrocodone Bitart/Acetaminophen ([place] 5/325) 1 tab PO Q4H PRN PRN Reason: Mild-Moderate Pain (1-5) Last Admin: 05/24/17 10:43 Dose: 1 tab Hydrocodone Bitart/Acetaminophen ([place] 5/325) 2 tab PO Q4H PRN PRN Reason: Moderate to Severe Pain (6-10) Last Admin: 05/20/17 17:46 Dose: 2 tab Dexamethasone (Decadron) 4 mg PO QA-[facility] Docusate Sodium (Colace) 100 mg PO BID [facility] Last Admin: 05/24/17 20:13 Dose: 100 mg Enoxaparin Sodium (Lovenox) 40 mg SC 0900 [facility] Last Admin: 05/24/17 08:23 Dose: 40 mg Famotidine (Pepcid) 20 mg PO BID [facility] Last Admin: 05/24/17 20:13 Dose: 20 mg Fluticasone Propionate (Flonase Nasal [place]) 0 gm NASAL BID [facility] Last Admin: 05/24/17 20:14 Dose: 2 spr Hydralazine HCl (Apresoline) 10 mg SLOW IVP Q6H PRN PRN Reason: SBP>160 Last Admin: 05/24/17 21:09 Dose: 10 mg Potassium Chloride/Sodium Chloride (Ns 0.9% W/ 40 Meq Kcl) 1,000 mls @ 50 mls/ hr IV .Q20H [facility] Last Admin: 05/24/17 10:44 Dose: 1,000 mls Lisinopril (Zestril) 20 mg PO DAILY [facility] Last Admin: 05/24/17 08:21 Dose: 20 mg Loratadine (Claritin) 10 mg PO QAM [facility] Last Admin: 05/24/17 08:21 Dose: 10 mg Lorazepam (Ativan) 0.5 mg SLOW IVP Q6H PRN PRN Reason: Anxiety/Agitation Last Admin: 05/23/17 10:45 Dose: 0.5 mg Lorazepam (Ativan) 0.5 mg PO Q4H PRN PRN Reason: Anxiety Last Admin: 05/23/17 22:02 Dose: 0.5 mg Metoprolol Tartrate (Lopressor) 25 mg PO BID [facility] Last Admin: 05/24/17 20:12 Dose: 25 mg Mometasone Furoate (Asmanex Twisthaler) 1 puff INH 1830 [facility] Last Admin: 05/24/17 19:54 Dose: 1 puff Morphine Sulfate (Duramorph) 2 mg IVP Q4H PRN PRN Reason: MOD TO SEVERE PAIN Last Admin: 05/24/17 21:56 Dose: 2 mg Ondansetron HCl (Zofran Odt) 8 mg PO Q6H PRN PRN Reason: Nausea/Vomiting Polyethylene Glycol (Miralax) 17 gm PO DAILY [facility] Last Admin: 05/24/17 10:36 Dose: Not Given Potassium Chloride (Klor-Con 10) 10 meq PO TID-WM [facility] Last Admin: 05/24/17 17:29 Dose: 10 meq Sodium Chloride (Flush - Normal Saline) 10 ml IVF Q12HR [facility] Last Admin: 05/24/17 20:15 Dose: Not Given Sodium Chloride (Flush - Normal Saline) 10 ml IVF PRN PRN PRN Reason: Saline Flush Last Admin: 05/20/17 21:49 Dose: 10 ml
[2017-05-24] MEDS: Lorazepam 0.5 MG TAB PO PRN (23:33)
[2017-05-25] MEDS: Morphine PF 1 MG/ML SYR IVP PRN ×2 (04:04→10:16)
[2017-05-25] MEDS: hydrALAZINE 20 MG/ML VIAL SLOW IVP PRN (04:11)
[2017-05-25] MEDS: Lorazepam 2 MG/ML VIAL SLOW IVP PRN (07:05)
[2017-05-25] MEDS: Potassium Chloride 10 MEQ TAB PO SCH ×3 (08:31→18:05)
[2017-05-25] MEDS: Dexamethasone 4 MG TAB PO SCH ×2 (08:31→08:32)
[2017-05-25] MEDS: Lisinopril 20 MG TAB PO SCH (08:31)
[2017-05-25] MEDS: Docusate 100 MG CAP PO SCH ×2 (08:31→21:18)
[2017-05-25] MEDS: Metoprolol Tartrate 25 MG TAB PO SCH ×2 (08:31→21:20)
[2017-05-25] MEDS: Famotidine 20 MG TAB PO SCH ×2 (08:31→21:19)
[2017-05-25] MEDS: Enoxaparin Sodium 40 MG/0.4 ML SYRINGE SC SCH (08:32)
[2017-05-25] MEDS: Polyethylene Glycol 3350 17 GM Packet PO SCH (08:32)
[2017-05-25] MEDS: Fluticasone Propionate Nasal Spray 16 gm Bottle NASAL SCH ×2 (08:35→21:48)
[2017-05-25] MEDS: NS 0.9% w/ 40 MEQ KCL 1,000 ML IV SCH (08:36)
[2017-05-25] MEDS: Loratadine 10 MG TAB PO SCH (08:38)
[2017-05-25 09:34] LABS: #Basophils 0.1 thou/uL (0.0-0.2); #Eosinphils 0.1 thou/uL (0.0-0.7); #Lymphocytes 2.2 thou/uL (1.20-3.40); #Monocytes 1.9 thou/uL (0.11-0.59); #Neutrophils 12.6 thou/uL (1.40-6.50); %Basophils 0.4 % (0.0-1.0); %Eosinophils 0.3 % (0.0-10.0); %Lymphocytes 12.9 % (21.0-51.0); %Monocytes 11.4 % (0.0-10.0); Mean Platelet Volume 7.7 fL (7.4-10.4); Red Blood Cell (RBC) Count 3.99 mill/uL (4.20-5.40); White Blood Cell (WBC) Count 16.8 thou/uL (4.8-10.8)
[2017-05-25 10:08] LABS: Anion Gap 11 mmol/L (10-20); BUN (Urea Nitrogen) 7 mg/dL (9.8-20.1); BUN/Creatinine Ratio 15.22; Calc. Creatinine Clearance 150 mL/min (70-130); Calcium 8.8 mg/dL (7.8-10.44); Carbon Dioxide 25 mmol/L (23-31); Chloride 92 mmol/L (98-107); Estimated GFR-MDRD Greater than 90; Magnesium 1.4 mg/dL (1.6-2.6); Phosphorus 1.4 mg/dL (2.3-4.7)
[2017-05-25] MEDS ORDERED: NS 0.9% w/ 40 MEQ KCL 1,000 ML IV SCH (10:20)
[2017-05-25] MEDS ORDERED: Meropenem 1 GM in Sodium Chloride 0.9% 100 ML IVPB SCH (10:30)
[2017-05-25] MEDS ORDERED: Magnesium Sulfate 4 GM in Sodium Chloride 0.9% 250 ML 250 ML IVPB SCH (10:30)
[2017-05-25] MEDS ORDERED: Vancomycin HCl 1 GM in Premix Bag 1 BAG IVPB SCH (10:30)
[2017-05-25] MEDS ORDERED: Potassium Phosphate 15 MMOL in Sodium Chloride 0.9% 250 ML 250 ML IVPB SCH (10:30)
[2017-05-25] MEDS: Ondansetron HCl/PF 8 MG in Sodium Chloride 0.9% 50 ML IVPB PRN ×2 (10:53→21:20)
--- NOTE | 2017-05-25 11:22 | RAD ---
PORTABLE CHEST ONE VIEW: Date: 05-25-17 Time: 10:34 a.m. History: Fever. FINDINGS: The heart size is normal. A small left pleural effusion is present. The aorta is tortuous. No lobar c onsolidation or pneumothoraces are identified. Degenerative changes are present in the spine. IMPRESSION: Small left pleural effusion. POS: H
--- NOTE | 2017-05-25 11:25 | RAD ---
ABDOMEN ONE VIEW: History: 61-year-old female with abdominal pain and history of peritoneal carcinomatosis/pancreatic. FINDINGS: There is no evidence for large or small bowel obstruction. Some of the retroperitoneal fat planes are somewhat obscured which certainly could raise the possibility of some associated ascites. Mild degen erative changes of the lumbar spine. No overt calculus. IMPRESSION: No bowel obstruction or overt calculus. Possible ascites. POS: DAMIEN
--- NOTE | 2017-05-25 12:25 | CON ---
DATE OF CONSULTATION: 05/25/2017 NEPHROLOGY CONSULTATION REASON FOR CONSULTATION: Hyponatremia. HISTORY OF PRESENTING ILLNESS: This is a 61-year-old female who was recently diagnosed with pancreat ic cancer and was noted to have sodium has dropped from 128-125, so we were consulted. The patient d enies any nausea, vomiting or chest pain. PAST MEDICAL HISTORY: Significant for hypertension, neuroendocrine tumor, and history of pancreatic cancer. SOCIAL HISTORY: No alcohol or drug use. REVIEW OF SYSTEMS: A 15 point review of systems was performed and was negative except for positives noted above. GENERAL: Weakness- HEAD: Headache- NECK: No swelling or lumps. NOSE: No epistaxis or discharge. EYES: No diplopia or pain. 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 NEUROPSYCHIATIC SYSTEMS: No suicidal ideation. No ideation. SKIN: Denies any rash or ulcer. CONSTITUTIONAL: No fever or chills. FAMILY HISTORY: Negative for ESRD. ALLERGIES: Reviewed. HOME MEDICATION LIST: Reviewed. HOSPITAL MEDICATION: Reviewed. PHYSICAL EXAMINATION: GENERAL: On examination, patient is awake, alert. VITAL SIGNS: Afebrile, pulse 121, blood pressure 130/84. HEAD/NECK: Normocephalic. Atraumatic. EYES: EOMI. No deformity. EARS: Clear. No ulcers. NOSE: Intact. No lesions. MOUTH: Clear. No discharge. THROAT: Clear. No exudate. LUNGS: Clear. No crackles. CARDIAC: S1, S2. No rub. ABDOMEN: Benign. BS+. GENITALIA/RECTUM: Ibanez absent. BACK/EXTREMITIES: Edema 0+ Ulcer- NEUROLOGICAL: Alert and motor intact. SKIN: Rash- Bruise- LYMPHATICS: Edema- Ulcer- LABORATORY DATA: Show sodium 125, potassium 3.5, serum osmolality 254. ASSESSMENT AND RECOMMENDATIONS: 1. Hyponatremia, most likely because of syndrome of inappropriate antidiuretic hormone secretion bec ause of pain as well as malignancy. Would recommend 800 mL fluid restriction and recheck sodium at 2 :00 p.m. 2. Hypo-osmolality. 3. Medications based on glomerular filtration rate are appropriate. No indication for hypertonic sa line. Overall, prognosis is extremely poor.
[2017-05-25] MEDS: MEROPENEM 1 GM/50 ML 1 GM in Premix Bag 1 BAG IVPB SCH ×2 (12:38→18:08)
[2017-05-25 13:29] LABS: Anion Gap 10 mmol/L (10-20); BUN (Urea Nitrogen) 7 mg/dL (9.8-20.1); Calc. Creatinine Clearance 138 mL/min (70-130); Calcium 9.2 mg/dL (7.8-10.44); Carbon Dioxide 26 mmol/L (23-31); Chloride 93 mmol/L (98-107); Estimated GFR-MDRD Greater than 90
[2017-05-25] MEDS: Vancomycin HCl 1 GM in Premix Bag 1 BAG IVPB SCH ×2 (15:49→18:08)
[2017-05-25] MEDS: Mometasone Furoate 120 PUFF 220 MCG INH SCH (18:06)
--- NOTE | 2017-05-25 18:32 | PDOC.PN ---
- Subjective Encounter Start Date: 05/25/17 Encounter Start Time: 15:00 Patient seen and examined. Transferred to tele due to tachycardia and possible sepsis. No overnight events. Nausea + - Objective MAR Reviewed: Yes Vital Signs & Weight: Vital Signs (12 hours) Temp Pulse Resp BP BP BP Pulse Ox 05/25/17 18:06 90 16 96 05/25/17 15:25 98.6 F 94 19 137/89 97 05/25/17 13:00 98.2 F 87 16 138/82 96 05/25/17 08:31 158/92 H 05/25/17 08:00 97.8 F 121 H 24 H 96 05/25/17 07:40 97.8 F 121 H 24 H 158/92 H 96 Weight Admit Weight 164 lb 14.832 oz Weight 164 lb 14.832 oz I&O: 05/24/17 05/25/17 05/26/17 06:59 06:59 06:59 Intake Total 2470 2670 Output Total 1 2 Balance 2469 2668 Result Diagrams: 05/25/17 09:16 05/25/17 13:00 EKG Reviewed by me: Yes (Tele SR) Phys Exam - Physical Examination Constitutional: NAD Respiratory: no wheezing, no rhonchi Cardiovascular: RRR, no rub Gastrointestinal: soft, non-tender, positive bowel sounds Musculoskeletal: no edema Neurological: moves all 4 limbs Dx/Plan - Plan DVT proph w/SCDs IMPRESSION: 1. Abd pain/N/V prob due to recurrent Pancreatic cancer with peritoneal carcinomatosis 2. SIRS 3. 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 Hypophosphatemia/hypomagnessemia 5. HTN 6. Constipation - improved 7. Back pain - prob musculoskeletal PLAN: * Transferred to tele * AM labs * Replace electrolytes * Oncology following * Consult ID/GI * Nephrology consult for hyponatremia * Oncology following Laboratory Tests 05/25/17 09:16 Phosphorus 1.4 L Magnesium 1.4 L Review of Systems - Review of Systems Respiratory: negative: Cough, Dry, Shortness of Breath, Hemoptysis, SOB with Excertion, Pleuritic Pain, Sputum, Wheezing Cardiovascular: negative: Chest Pain, Palpitations, Orthopnea, Paroxysmal Noc. Dyspnea, Edema, Light Headedness - Medications/Allergies Allergies/Adverse Reactions: Allergies Allergy/AdvReac Type Severity Reaction Status Date / Time oxytetracycline Allergy Verified 04/01/17 02:55 [From Terramycin] Medications: Current Medications Acetaminophen (Tylenol) 650 mg PO Q4H PRN PRN Reason: Headache/Fever or Pain Last Admin: 05/22/17 07:49 Dose: 650 mg Hydrocodone Bitart/Acetaminophen ([place] 5/325) 1 tab PO Q4H PRN PRN Reason: Mild-Moderate Pain (1-5) Last Admin: 05/24/17 10:43 Dose: 1 tab Hydrocodone Bitart/Acetaminophen ([place] 5/325) 2 tab PO Q4H PRN PRN Reason: Moderate to Severe Pain (6-10) Last Admin: 05/20/17 17:46 Dose: 2 tab Dexamethasone (Decadron) 4 mg PO QA[facility] Last Admin: 05/25/17 08:32 Dose: 4 mg Docusate Sodium (Colace) 100 mg PO BID [facility] Last Admin: 05/25/17 08:31 Dose: 100 mg Enoxaparin Sodium (Lovenox) 40 mg SC 0900 [facility] Last Admin: 05/25/17 08:32 Dose: 40 mg Famotidine (Pepcid) 20 mg PO BID [facility] Last Admin: 05/25/17 08:31 Dose: 20 mg Fluticasone Propionate (Flonase Nasal [place]) 0 gm NASAL BID [facility] Last Admin: 05/25/17 08:35 Dose: 2 spr Hydralazine HCl (Apresoline) 10 mg SLOW IVP Q6H PRN PRN Reason: SBP>160 Last Admin: 05/25/17 04:11 Dose: 10 mg Ondansetron HCl 8 mg/ Sodium (Chloride) 54 mls @ 216 mls/hr IVPB Q6H PRN PRN Reason: Nausea/Vomiting Last Admin: 05/25/17 10:53 Dose: 54 mls Meropenem 1 gm/ Device 50 mls @ 50 mls/hr IVPB 0300,1100,1900 [facility] Last Admin: 05/25/17 18:08 Dose: 50 mls Vancomycin HCl 1 gm/ Device 200 mls @ 200 mls/hr IVPB 0300,1100,1900 [facility] Last Admin: 05/25/17 18:08 Dose: 200 mls Lisinopril (Zestril) 20 mg PO DAILY [facility] Last Admin: 05/25/17 08:31 Dose: 20 mg Loratadine (Claritin) 10 mg PO QAM [facility] Last Admin: 05/25/17 08:38 Dose: 10 mg Lorazepam (Ativan) 0.5 mg SLOW IVP Q6H PRN PRN Reason: Anxiety/Agitation Last Admin: 05/25/17 07:05 Dose: 0.5 mg Lorazepam (Ativan) 0.5 mg PO Q4H PRN PRN Reason: Anxiety Last Admin: 05/24/17 23:33 Dose: 0.5 mg Metoprolol Tartrate (Lopressor) 25 mg PO BID [facility] Last Admin: 05/25/17 08:31 Dose: 25 mg Miscellaneous Medication (Pharmacy To Dose) 0 each IVPB ASDIR PRN PRN Reason: Pharmacy to Dose VANCOMYCIN Mometasone Furoate (Asmanex Twisthaler) 1 puff INH 1830 [facility] Last Admin: 05/25/17 18:06 Dose: 1 puff Morphine Sulfate (Duramorph) 2 mg IVP Q4H PRN PRN Reason: MOD TO SEVERE PAIN Last Admin: 05/25/17 10:16 Dose: 2 mg Ondansetron HCl (Zofran Odt) 8 mg PO Q6H PRN PRN Reason: Nausea/Vomiting Polyethylene Glycol (Miralax) 17 gm PO DAILY [facility] Last Admin: 05/25/17 08:32 Dose: 17 gm Potassium Chloride (Klor-Con 10) 10 meq PO TID-WM [facility] Last Admin: 05/25/17 18:05 Dose: 10 meq Sodium Chloride (Flush - Normal Saline) 10 ml IVF Q12HR [facility] Last Admin: 05/25/17 08:32 Dose: 10 ml Sodium Chloride (Flush - Normal Saline) 10 ml IVF PRN PRN PRN Reason: Saline Flush Last Admin: 05/20/17 21:49 Dose: 10 ml
[2017-05-25] MEDS: Lorazepam 0.5 MG TAB PO PRN (21:18)
--- NOTE | 2017-05-25 23:58 | CON ---
DATE OF CONSULTATION: 05/25/2017 REASON FOR CONSULTATION: Pancreatic cancer, refractory nausea and vomiting. CONSULTING PHYSICIAN: Delfin Riggins M.D. HISTORY OF PRESENT ILLNESS: The patient is a 61-year-old female with a past medical history of hypertension and pancreatic neuroendocrine tumor presenting with complaints of increased abdominal bloating/pain, nausea and vomiting. She states that approximately 2 weeks ago, she started having increased abdominal bloating and pain centered primarily in the midepigastric, right lower quadrant, and left lower quadrants characterized as a sharp/ stabbing pain. Pain would radiate to the general abdomen with a severity of 8/ 10 at its worst, worse with movements and pressure to the abdomen and with no clear alleviating factors. However, she started having increased nausea and vomiting starting on May 19 and progressively got worse over the day, which prompted admission to the Psychiatric for further evaluation. She was initially admitted to the oncology floor where she underwent workup and noted to have a CT scan showing a significant soft tissue mass in the peripancreatic region that was also associated with the anterior aspect of the peritoneal cavity consistent with peritoneal carcinomatosis. With the increased nausea and vomiting, she was subsequently placed on IV dexamethasone, IV ondansetron, and IV lorazepam with [id number] control of her symptoms. However, these were discontinued approximately 2 days ago with return of symptoms shortly thereafter. She was placed back on these medications due to the increased nausea and vomiting, but in the process, also noted to have increased white blood cell count. This morning, she had increased tachycardia and hypertension which then prompted transfer to the telemetry hernandez for further cardiac monitoring. At the current time, she denies any abdominal pain and has not had any further nausea or vomiting since approximately 11:00 a.m. this morning. She denies any vomiting of blood nor denies any blood in her stool or melena. She does have associated sensation of feeling flushed and mild diaphoresis, but otherwise denies odynophagia, dysphagia, fever and shaking chills. Of note, she had been followed by [facility] with her last visit in approximately May of 2016 for her neuroendocrine pancreatic tumor for which she had undergone chemoradiation(?) as well as a partial pancreatectomy. PAST MEDICAL HISTORY: Hypertension, pancreatic neuroendocrine tumor. PAST SURGICAL HISTORY: Partial pancreatectomy, oophorectomy, and splenectomy. SOCIAL HISTORY: Denies smoking, alcohol or illicit drug use. ALLERGIES: No known drug allergies. INPATIENT MEDICATIONS: Reviewed. REVIEW OF SYSTEMS: A comprehensive 12 review of systems was obtained and were all negative except for the pertinent positives as stated above in the HPI. PHYSICAL EXAMINATION: VITAL SIGNS: Temperature 98.6, pulse 94. Most recent blood pressure 158/92, respiratory rate 19, oxygen saturation 97% on room air. GENERAL: The patient appears comfortable lying in bed. HEENT: Pupils are equal, round, and reactive to light. CARDIOVASCULAR: Regular rate and rhythm with no discernible murmurs, gallops or rubs. RESPIRATORY: Clear to auscultation bilaterally with no wheezing or rhonchi auscultated. GASTROINTESTINAL: Mild abdomen distention is noted with increased tenderness to palpation in the left lower quadrant, right lower quadrant, in the mid epigastric regions. Negative shifting dullness. No guarding or rebound tenderness noted. Normoactive bowel sounds. EXTREMITIES: No cyanosis, clubbing or edema. LABORATORY DATA: White blood cell count 16.8, hemoglobin 12.7, hematocrit 38, platelet count 389. Chemistry: Sodium 125, potassium 3.5, chloride 93, carbon dioxide 26, BUN 7, creatinine 0.5, total bilirubin 0.4, AST 44, ALT 21, alkaline phosphatase 51. Lactate dehydrogenase 316, CA 19-9 of 5. IMAGING: Chest x-ray obtained on May 25, 2016 showing a small left pleural effusion. No evidence of lobar consolidation, or pneumothoraces. CT abdomen obtained on May 18, 2017 showing small left pleural effusion, a 2 cm soft tissue mass in the epicardial fat, [id number] ascites, a soft tissue mass measuring 14 x 8 x 11.6 x 15.3 cm in the mid epigastric region, several soft tissue masses associated with the anterior aspect of the peritoneal cavity consistent with peritoneal carcinomatosis. The soft tissue masses both surround and are inseparable from the uterus and a large multicystic lesion was seen in the head of the pancreas. ASSESSMENT AND PLAN: The patient is a 61-year-old female with a past medical history of hypertension and pancreatic neuroendocrine tumor presenting with increased abdominal bloating/pain nausea and vomiting with imaging consistent with recurrent pancreatic cancer. Pancreatic cancer Patient is presenting with increased abdominal bloating/pain, nausea and vomiting which is most consistent with the peritoneal carcinomatosis noted on the recent CT scan obtained at the end of April. The peritoneal carcinomatosis could generate exquisite pain within the peritoneal cavity ( especially with palpation to this region) as well as generate increased nausea and vomiting with extension of the large soft tissue mass in the mid epigastric region could also put pressure on the stomach. She has been subsequently treated with scheduled Zofran, lorazepam and dexamethasone to control her nausea and vomiting and at the current point in time is under good control; however, she has been noted to have an elevated white blood cell count concerning for a possible infection with current infectious workup negative at this time. With that said, with the recent administration of high potency steroids, this medication alone could potentially generate an elevated white blood cell count that is seen on her current CBC. Given the metastatic nature of her disease, surgical treatment is not typically an option and would defer to the Oncology Service for evaluation and possible chemotherapy. PLAN: - Continue scheduled Zofran, lorazepam and Decadron for antinausea control ( could consider alternating scheduled Zofran with either Compazine or Phenergan for better antiemetic control if needed) - Follow up on Infectious workup given elevated white blood cell count and agree with empiric antibiotics at this particular point in time unless infectious workup is negative - Would defer to Oncology for further management of her pancreatic neuroendocrine tumor, but hospice referral would not be unreasonable MTDD
[2017-05-26] MEDS: MEROPENEM 1 GM/50 ML 1 GM in Premix Bag 1 BAG IVPB SCH ×2 (05:05→10:58)
[2017-05-26] MEDS: Vancomycin HCl 1 GM in Premix Bag 1 BAG IVPB SCH ×2 (05:06→12:17)
[2017-05-26] MEDS: Ondansetron HCl/PF 8 MG in Sodium Chloride 0.9% 50 ML IVPB PRN (05:21)
[2017-05-26 05:24] LABS: #Lymphocytes 1.5 thou/uL (1.20-3.40); #Neutrophils 7.5 thou/uL (1.40-6.50); %Basophils 0.2 % (0.0-1.0); %Eosinophils 0.4 % (0.0-10.0); %Lymphocytes 14.8 % (21.0-51.0); %Monocytes 9.9 % (0.0-10.0); Hematocrit 37.7 % (36.0-47.0); Mean Platelet Volume 7.9 fL (7.4-10.4); Red Blood Cell (RBC) Count 3.97 mill/uL (4.20-5.40)
[2017-05-26 05:49] LABS: Anion Gap 12 mmol/L (10-20); BUN (Urea Nitrogen) 9 mg/dL (9.8-20.1); BUN/Creatinine Ratio 18.75; Calc. Creatinine Clearance 134 mL/min (70-130); Calcium 8.6 mg/dL (7.8-10.44); Carbon Dioxide 24 mmol/L (23-31); Chloride 93 mmol/L (98-107); Estimated GFR-MDRD Greater than 90; Magnesium 1.9 mg/dL (1.6-2.6); Phosphorus 2.4 mg/dL (2.3-4.7)
[2017-05-26] MEDS: Morphine 4 MG/ML VIAL IV PRN ×2 (08:32→21:20)
[2017-05-26] MEDS: Loratadine 10 MG TAB PO SCH (08:38)
[2017-05-26] MEDS: Docusate 100 MG CAP PO SCH ×2 (08:38→21:19)
[2017-05-26] MEDS: Dexamethasone 4 MG TAB PO SCH (08:38)
[2017-05-26] MEDS: Famotidine 20 MG TAB PO SCH ×2 (08:38→21:19)
[2017-05-26] MEDS: Metoprolol Tartrate 25 MG TAB PO SCH ×2 (08:38→21:19)
[2017-05-26] MEDS: Lisinopril 20 MG TAB PO SCH (08:38)
[2017-05-26] MEDS: Potassium Chloride 10 MEQ TAB PO SCH ×3 (08:39→17:21)
[2017-05-26] MEDS: Fluticasone Propionate Nasal Spray 16 gm Bottle NASAL SCH ×2 (08:40→21:19)
[2017-05-26] MEDS: Polyethylene Glycol 3350 17 GM Packet PO SCH (08:40)
[2017-05-26] MEDS: Enoxaparin Sodium 40 MG/0.4 ML SYRINGE SC SCH (08:40)
[2017-05-26 10:21] LABS: Vancomycin, Trough 11.7 ug/mL
--- NOTE | 2017-05-26 12:08 | PRG ---
DATE OF SERVICE: 05/26/2017 SUBJECTIVE: This is a 61-year-old female being seen for hyponatremia. The patient denies any nausea, vomiting or headache. PHYSICAL EXAMINATION: GENERAL: Patient is awake, alert. VITAL SIGNS: Afebrile, pulse 82, breathing at 16, blood pressure 129/84. HEAD/NECK: Normocephalic. Atraumatic. EYES: EOMI. No deformity. EARS: Clear. No ulcers. NOSE: Intact. No lesions. MOUTH: Clear. No discharge. THROAT: Clear. No exudate. LUNGS: Clear. No crackles. CARDIAC: S1, S2. No rub. ABDOMEN: Benign. BS+. GENITALIA/RECTUM: Ibanez absent. BACK/EXTREMITIES: Edema 0+ Ulcer- NEUROLOGICAL: Alert and motor intact. SKIN: Rash- Bruise- LYMPHATICS: Edema- Ulcer- LABORATORY DATA: Show sodium is 125. ASSESSMENT AND RECOMMENDATIONS: 1. Hyponatremia, most likely because of syndrome of inappropriate antidiuretic hormone secretion because of pain and malignancy. Recommend 800 mL fluid restriction. The patient got more than 2 liters yesterday 2. Hypertension, stable. 3. Medications based on glomerular filtration rate are appropriate. No indication for hypertonic saline. MTDD
[2017-05-26] MEDS: Ondansetron ODT 8 MG TAB PO PRN (12:17)
--- NOTE | 2017-05-26 16:51 | PDOC.PN ---
- Subjective Encounter Start Date: 05/26/17 Encounter Start Time: 14:00 Patient seen and examined. Nausea slightly better. No overnight events - Objective MAR Reviewed: Yes Vital Signs & Weight: Vital Signs (12 hours) Temp Pulse Resp BP Pulse Ox 05/26/17 15:06 98.1 F 90 16 137/85 93 L 05/26/17 11:17 97.8 F 82 18 129/84 92 L 05/26/17 08:16 99.1 F 102 H 18 158/87 H 93 L Weight Admit Weight 164 lb 14.832 oz Weight 154 lb 8 oz I&O: 05/25/17 05/26/17 05/27/17 06:59 06:59 06:59 Intake Total 2670 570 Output Total 2 250 Balance 2668 320 Result Diagrams: 05/26/17 04:54 05/27/17 04:17 Phys Exam - Physical Examination Constitutional: NAD Respiratory: no wheezing, no rhonchi Cardiovascular: RRR, no rub Gastrointestinal: soft, positive bowel sounds mild gen tend, no guarding Musculoskeletal: no edema Neurological: moves all 4 limbs Dx/Plan - Plan DVT proph w/SCDs IMPRESSION: 1. Abd pain/N/V prob due to recurrent Pancreatic cancer with peritoneal carcinomatosis 2. ?SIRS - cultures negative. 3. 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 Hypophosphatemia/hypomagnessemia - improving. 5. HTN PLAN: * Transfer to Onc * DC Vancomycin * Await ID input * GI/Nephro input appreciated * AM labs * Oncology following * Consult ID/GI Laboratory Tests 05/25/17 05/26/17 09:16 04:54 Phosphorus 1.4 L 2.4 Magnesium 1.4 L 1.9 Review of Systems - Review of Systems Respiratory: negative: Cough, Dry, Shortness of Breath, Hemoptysis, SOB with Excertion, Pleuritic Pain, Sputum, Wheezing Cardiovascular: negative: Chest Pain, Palpitations, Orthopnea, Paroxysmal Noc. Dyspnea, Edema, Light Headedness - Medications/Allergies Allergies/Adverse Reactions: Allergies Allergy/AdvReac Type Severity Reaction Status Date / Time oxytetracycline Allergy Verified 04/01/17 02:55 [From Terramycin] Medications: Current Medications Acetaminophen (Tylenol) 650 mg PO Q4H PRN PRN Reason: Headache/Fever or Pain Last Admin: 12/03/17 07:49 Dose: 650 mg Hydrocodone Bitart/Acetaminophen ([place] 5/325) 1 tab PO Q4H PRN PRN Reason: Mild-Moderate Pain (1-5) Last Admin: 05/24/17 10:43 Dose: 1 tab Hydrocodone Bitart/Acetaminophen ([place] 5/325) 2 tab PO Q4H PRN PRN Reason: Moderate to Severe Pain (6-10) Last Admin: 05/20/17 17:46 Dose: 2 tab Dexamethasone (Decadron) 4 mg PO QAM[facility] Last Admin: 05/26/17 08:38 Dose: 4 mg Docusate Sodium (Colace) 100 mg PO BID [facility] Last Admin: 05/26/17 08:38 Dose: 100 mg Enoxaparin Sodium (Lovenox) 40 mg SC 0900 [facility] Last Admin: 05/26/17 08:40 Dose: 40 mg Famotidine (Pepcid) 20 mg PO BID [facility] Last Admin: 05/26/17 08:38 Dose: 20 mg Fluticasone Propionate (Flonase Nasal [place]) 0 gm NASAL BID [facility] Last Admin: 05/26/17 08:40 Dose: 2 spr Hydralazine HCl (Apresoline) 10 mg SLOW IVP Q6H PRN PRN Reason: SBP>160 Last Admin: 05/25/17 04:11 Dose: 10 mg Meropenem 1 gm/ Device 50 mls @ 50 mls/hr IVPB 0300,1100,1900 [facility] Last Admin: 05/26/17 10:58 Dose: 50 mls Ondansetron HCl 8 mg/ Sodium (Chloride) 104 mls @ 416 mls/hr IVPB Q6H PRN PRN Reason: Nausea/Vomiting Lisinopril (Zestril) 20 mg PO DAILY [facility] Last Admin: 05/26/17 08:38 Dose: 20 mg Loratadine (Claritin) 10 mg PO QAM [facility] Last Admin: 05/26/17 08:38 Dose: 10 mg Lorazepam (Ativan) 0.5 mg SLOW IVP Q6H PRN PRN Reason: Anxiety/Agitation Last Admin: 05/25/17 07:05 Dose: 0.5 mg Lorazepam (Ativan) 0.5 mg PO Q4H PRN PRN Reason: Anxiety Last Admin: 05/25/17 21:18 Dose: 0.5 mg Metoprolol Tartrate (Lopressor) 25 mg PO BID [facility] Last Admin: 05/26/17 08:38 Dose: 25 mg Miscellaneous Medication (Pharmacy To Dose) 0 each IVPB ASDIR PRN PRN Reason: Pharmacy to Dose VANCOMYCIN Mometasone Furoate (Asmanex [place]) 1 puff INH 1830 [facility] Last Admin: 05/25/17 18:06 Dose: 1 puff Morphine Sulfate (Morphine) 2 mg IV Q4H PRN PRN Reason: Moderate to Severe Pain (6-10) Last Admin: 05/26/17 08:32 Dose: 2 mg Ondansetron HCl (Zofran Odt) 8 mg PO Q6H PRN PRN Reason: Nausea/Vomiting Last Admin: 05/26/17 12:17 Dose: 8 mg Polyethylene Glycol (Miralax) 17 gm PO DAILY [facility] Last Admin: 05/26/17 08:40 Dose: 17 gm Potassium Chloride (Klor-Con 10) 10 meq PO TID-WM [facility] Last Admin: 05/26/17 12:17 Dose: 10 meq Sodium Chloride (Flush - Normal Saline) 10 ml IVF Q12HR [facility] Last Admin: 05/26/17 08:38 Dose: 10 ml Sodium Chloride (Flush - Normal Saline) 10 ml IVF PRN PRN PRN Reason: Saline Flush Last Admin: 05/26/17 05:21 Dose: 10 ml
[2017-05-26 17:32] LABS: Anion Gap 11 mmol/L (10-20); BUN (Urea Nitrogen) 9 mg/dL (9.8-20.1); Calc. Creatinine Clearance 124 mL/min (70-130); Calcium 9.2 mg/dL (7.8-10.44); Carbon Dioxide 25 mmol/L (23-31); Chloride 92 mmol/L (98-107); Estimated GFR-MDRD Greater than 90
--- NOTE | 2017-05-26 19:21 | PRG ---
DATE OF SERVICE: 05/26/2017 REASON FOR CONSULTATION: Pancreatic cancer, refractory nausea and vomiting. SUBJECTIVE: Overnight, the patient had improvement in her nausea and no further episodes of emesis on the current antiemetic regimen. She continues to have lower quadrant abdominal pain, but this is also improved with pain medication administration. Otherwise, she denies any episodes of fever, chills , odynophagia, dysphagia, diarrhea, or constipation. INPATIENT MEDICATIONS: Reviewed. PHYSICAL EXAMINATION: VITAL SIGNS: Temperature 98.1, pulse 90, blood pressure 137/85, respiratory rate 16, satting 93% on 2 liters nasal cannula. GENERAL: The patient appears comfortable lying in bed. HEENT: Pupils are equal, round, and reactive to light. CARDIOVASCULAR: Regular rate and rhythm with no discernible murmurs, gallops or rubs. RESPIRATORY: Clear to auscultation bilaterally with no wheezing or rhonchi. GASTROINTESTINAL: Mild abdominal distention noted with increased tenderness to palpation in all abdominal quadrants, especially the left lower and right lower quadrant negative shifting dullness. No guarding or rebound tenderness noted. Normoactive bowel sounds auscultated. EXTREMITIES: No cyanosis, clubbing or edema. LABORATORY DATA: White blood cell count 10, hemoglobin 12, hematocrit 37.7, platelet count 382. Sodium 125, potassium 3.6, chloride 93, carbon dioxide 24, BUN 9, creatinine 0.48, glucose 79. ASSESSMENT AND PLAN: The patient is a 61-year-old female with a past medical history of hypertension and pancreatic neuroendocrine tumor presenting with increased abdominal pain/ bloating, nausea, and vomiting with imaging consistent with recurrent pancreatic cancer Pancreatic cancer The patient is presenting with increased abdominal bloating/pain, nausea, and vomiting, which is most consistent with peritoneal carcinomatosis noted on the recent CT scan obtained at the end of April. The peritoneal carcinomatosis could generate exquisite pain within the peritoneal cavity due to interruption of the peritoneal lining as well as generate increased nausea and vomiting with extension of the large soft tissue mass in the midepigastric region putting pressure on the stomach. She seems to be responding to scheduled Zofran, lorazepam, and dexamethasone to control her nausea and vomiting and had improvement of her elevated white blood cell count while on antibiotic therapy. However, current infectious workup has been negative thus far, raising suspicion that the elevated white blood cell count was due to dexamethasone administration rather than an infectious etiology. - We would continue scheduled Zofran, lorazepam, and dexamethasone for antinausea control (could consider alternating scheduled Zofran with other Compazine or Phenergan for better antiemetic control if needed). - Follow up on infectious workup. I agree with discontinuation of empiric antibiotics if infectious workup is negative. - We defer to Oncology for further management of her pancreatic neuroendocrine tumor, but hospice referral would not be unreasonable. - Follow up in the GI clinic in 2 weeks after discharge. We will sign off at this time. Please contact us for any further questions or consultation matters. GALDINO
[2017-05-26] MEDS: Mometasone Furoate 120 PUFF 220 MCG INH SCH (19:50)
--- NOTE | 2017-05-26 21:19 | CON ---
DATE OF CONSULTATION: 05/26/2017 REASON FOR CONSULTATION: Possible sepsis. HISTORY OF PRESENT ILLNESS: A 61-year-old patient who has a history of hypertension and neuroendocri ne tumor with primary site in the pancreas diagnosed initially in 2014. The patient was treated with neoadjuvant chemotherapy and then underwent partial pancreatectomy with splenectomy and resection of ovary in 12/2015. She had a PET scan at [facility] in 05/2016, which reportedly showed remission a nd then she lost her insurance and over the past few weeks, has noticed abdominal pain and distention , and had a CT scan which showed multiple soft tissue masses consistent with peritoneal carcinomatosi s, no left pleural effusion. There was a stable pancreatic cystic mass in the head of the pancreas. There was a hyperdense mass in the left hip joint capsule, felt to be a ganglion cyst. The patient also had a concomitant 10-pound weight loss, abdominal distention, bloating, fatigue. Initial findin gs included blood pressure 159/107, heart rate 118, pulse of 97%. The patient appeared comfortable a t rest. Lung and heart exam were normal. Abdomen showed distention, some bloating, mild tenderness, positive evidence of ascites. Initial labs, white cell count 8.2, hemoglobin 15, platelets 435, CO2 of 21, AST 45, ALT 19. Patient had an oncology consultation and it was felt that she was a candidat e for chemotherapy with followup in the outpatient setting. Tumor markers were submitted. Consultat ion with Gastroenterology was obtained as well. Currently, Ms. Messer is sitting up in bed. She is feeling a little better. Less headaches, no more vomiting, no back pain, no cough or sputum producti on or dyspnea. Voiding without difficulty. No diarrhea. PAST MEDICAL HISTORY: Includes pancreatic cancer secondary to neuroendocrine tumor previously treate d at [facility] and now with apparent recrudescence with peritoneal carcinomatosis, hypertension. PAST SURGICAL HISTORY: Partial pancreatectomy, oophorectomy, splenectomy. SOCIAL HISTORY: Never smoker. ALLERGIES: None. CURRENT MEDICATIONS: Patient is on Tylenol, [place], Decadron, Lovenox, Pepcid, Flonase, Apresoline, Z estril, Claritin, Ativan, meropenem, and ondansetron. FAMILY HISTORY: Noncontributory. PHYSICAL EXAMINATION: VITAL SIGNS: T-max 99.1, blood pressure 130/80, pulse 90, respirations 16, O2 sat 92% to 93%. SKIN: Shows areas of bruising from the Lovenox injections in the abdominal wall area. Peripheral IV access. No Ibanez catheter. No lymphadenopathy. HEENT: Ocular movements are conjugate. The patient has evidence of oral candidiasis. NECK: Supple. LUNGS: With symmetric clear breath sounds. HEART: S1, S2, regular rate. No S3 or S4. ABDOMEN: Slightly distended, not tender. I could not formally identified ascites at this time. No bladder distention, no organomegaly. BACK: No back tenderness. EXTREMITIES: Moves all extremities equally. No joint inflammatory activity. No edema. Pulses 1+ i n dorsalis pedis. LABORATORY AND X-RAY FINDINGS: White cell count was 8.2, went up to 16.8, now 10; hemoglobin 12; jer telets 389. Sodium 124, creatinine 0.52, albumin 3.6. Transaminases normal except for AST was mildl y elevated at 44. Bilirubin normal. Globulin 3.9. Urinalysis with 4-6 wbc's. Vancomycin trough 11 .7. Blood culture reports thus far negative. Urine culture has not resulted stool occult blood, neg ative reports. Imaging reports, we have a chest CT from the end of April with mild volume left pl eural effusion, no pulmonary mass or nodule, ground-glass opacities, left lower lobe. Abdomen and pe lvis ultrasound from mid March with this is done to check renal artery that was unremarkable. Ches t x-ray from 05/25/2017 with a small left pleural effusion. ASSESSMENT: 1. Neuroendocrine tumor with pancreatic involvement, status post treatment at [facility] and now wi th apparent recrudescence. Patient is a candidate for further treatment once she is discharged. Fara or markers have been submitted. 2. Vomiting, nausea, transient neutrophilia. 3. Oral candidiasis. DISCUSSION: At this point, we do not have strong evidence to suggest bacteremia and she does have or al candidiasis which needs to be treated. We will go ahead and discontinue meropenem, monitor blood cultures to the final results.
[2017-05-26 23:48] VITALS: BMI 26.2
[2017-05-27 05:02] LABS: Anion Gap 13 mmol/L (10-20); BUN (Urea Nitrogen) 10 mg/dL (9.8-20.1); Calc. Creatinine Clearance 138 mL/min (70-130); Calcium 8.8 mg/dL (7.8-10.44); Carbon Dioxide 24 mmol/L (23-31); Chloride 93 mmol/L (98-107); Estimated GFR-MDRD Greater than 90; Magnesium 1.7 mg/dL (1.6-2.6); Phosphorus 2.7 mg/dL (2.3-4.7)
[2017-05-27] MEDS: Polyethylene Glycol 3350 17 GM Packet PO SCH (09:00)
[2017-05-27] MEDS: Dexamethasone 4 MG TAB PO SCH (09:48)
[2017-05-27] MEDS: Famotidine 20 MG TAB PO SCH ×2 (09:49→20:58)
[2017-05-27] MEDS: Loratadine 10 MG TAB PO SCH (09:49)
[2017-05-27] MEDS: Fluconazole 100 MG TAB PO SCH (09:49)
[2017-05-27] MEDS: Potassium Chloride 10 MEQ TAB PO SCH ×3 (09:49→16:47)
[2017-05-27] MEDS: Ondansetron ODT 8 MG TAB PO PRN (09:49)
[2017-05-27] MEDS: Metoprolol Tartrate 25 MG TAB PO SCH ×2 (09:49→20:57)
[2017-05-27] MEDS: Lisinopril 20 MG TAB PO SCH (09:50)
[2017-05-27] MEDS: Docusate 100 MG CAP PO SCH ×2 (09:50→20:58)
[2017-05-27] MEDS: Fluticasone Propionate Nasal Spray 16 gm Bottle NASAL SCH ×2 (09:55→20:58)
[2017-05-27] MEDS: Enoxaparin Sodium 40 MG/0.4 ML SYRINGE SC SCH (09:56)
[2017-05-27] MEDS ORDERED: ONDANSETRON HCL IVPB SCH ×6 (11:15)
[2017-05-27] MEDS ORDERED: DEXAMETHASONE IVPB SCH ×6 (11:15)
[2017-05-27] MEDS ORDERED: SODIUM CHLORIDE 0.9% IVPB SCH ×6 (11:15)
[2017-05-27] MEDS ORDERED: CARBOplatin 200 MG in Sodium Chloride 0.9% 250 ML 250 ML IVPB SCH (11:45)
--- NOTE | 2017-05-27 13:58 | PDOC.PN ---
- Subjective Encounter Start Date: 05/27/17 Encounter Start Time: 08:00 Patient seen and examined. Nausea - slightly better. No overnight events - Objective MAR Reviewed: Yes Vital Signs & Weight: Vital Signs (12 hours) Temp Pulse Resp BP Pulse Ox 05/27/17 08:00 98.8 F 104 H 18 96 05/27/17 07:40 98.8 F 104 H 18 142/84 H 96 Weight Admit Weight 164 lb 14.832 oz Weight 162 lb 6.4 oz I&O: 05/26/17 05/27/17 05/28/17 06:59 06:59 06:59 Intake Total 570 850 Output Total 250 700 Balance 320 150 Result Diagrams: 05/26/17 04:54 05/27/17 04:17 Phys Exam - Physical Examination Constitutional: NAD Respiratory: no wheezing, no rhonchi Cardiovascular: RRR, no rub Gastrointestinal: soft, non-tender, positive bowel sounds Musculoskeletal: no edema Neurological: moves all 4 limbs Psychiatric: A&O x 3 Dx/Plan - Plan cont current plan of care, DVT proph w/lovenox, DVT proph w/SCDs IMPRESSION: 1. Abd pain/N/V prob due to recurrent Pancreatic cancer with peritoneal carcinomatosis - started on Chemo (05/27) 2. ?SIRS - cultures negative. 3. 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 HTN 5. Oral candidiasis - started on Fluconazole 6. Hypophosphatemia/hypomagnessemia - improved PLAN: * Atbx dced * AM labs * Oncology following * Cont to monitor * Cont current meds as below * Cont antiemetics/steroids Review of Systems - Review of Systems Respiratory: negative: Cough, Dry, Shortness of Breath, Hemoptysis, SOB with Excertion, Pleuritic Pain, Sputum, Wheezing Cardiovascular: negative: Chest Pain, Palpitations, Orthopnea, Paroxysmal Noc. Dyspnea, Edema, Light Headedness - Medications/Allergies Allergies/Adverse Reactions: Allergies Allergy/AdvReac Type Severity Reaction Status Date / Time oxytetracycline Allergy Verified 04/01/17 02:55 [From Terramycin] Medications: Current Medications Acetaminophen (Tylenol) 650 mg PO Q4H PRN PRN Reason: Headache/Fever or Pain Last Admin: 05/22/17 07:49 Dose: 650 mg Hydrocodone Bitart/Acetaminophen ([place] 5/325) 1 tab PO Q4H PRN PRN Reason: Mild-Moderate Pain (1-5) Last Admin: 05/24/17 10:43 Dose: 1 tab Hydrocodone Bitart/Acetaminophen ([place] 5/325) 2 tab PO Q4H PRN PRN Reason: Moderate to Severe Pain (6-10) Last Admin: 05/20/17 17:46 Dose: 2 tab Dexamethasone (Decadron) 4 mg PO QAM-[facility] Last Admin: 05/27/17 09:48 Dose: 4 mg Docusate Sodium (Colace) 100 mg PO BID [facility] Last Admin: 05/27/17 09:50 Dose: 100 mg Enoxaparin Sodium (Lovenox) 40 mg SC 0900 [facility] Last Admin: 05/27/17 09:56 Dose: 40 mg Famotidine (Pepcid) 20 mg PO BID [facility] Last Admin: 05/27/17 09:49 Dose: 20 mg Fluconazole (Diflucan) 100 mg PO DAILY [facility] Last Admin: 05/27/17 09:49 Dose: 100 mg Fluticasone Propionate (Flonase Nasal [place]) 0 gm NASAL BID [facility] Last Admin: 05/27/17 09:55 Dose: 2 spr Hydralazine HCl (Apresoline) 10 mg SLOW IVP Q6H PRN PRN Reason: SBP>160 Last Admin: 05/25/17 04:11 Dose: 10 mg Ondansetron HCl 8 mg/ Sodium (Chloride) 104 mls @ 416 mls/hr IVPB Q6H PRN PRN Reason: Nausea/Vomiting Carboplatin 200 mg/ Sodium (Chloride) 270 mls @ 360 mls/hr IVPB ONE [facility] Stop: 05/27/17 15:00 Etoposide 180 mg/ Sodium (Chloride) 509 mls @ 509 mls/hr IVPB [facility] Stop: 05/27/17 23:59 Ondansetron HCl 20 mg/Dexamethasone 10 mg/ Sodium Chloride 61 mls @ 183 mls/hr IVPB ONE [facility] Stop: 05/27/17 23:59 Lisinopril (Zestril) 20 mg PO DAILY [facility] Last Admin: 05/27/17 09:50 Dose: 20 mg Loratadine (Claritin) 10 mg PO QAM [facility] Last Admin: 05/27/17 09:49 Dose: 10 mg Lorazepam (Ativan) 0.5 mg SLOW IVP Q6H PRN PRN Reason: Anxiety/Agitation Last Admin: 05/25/17 07:05 Dose: 0.5 mg Lorazepam (Ativan) 0.5 mg PO Q4H PRN PRN Reason: Anxiety Last Admin: 05/25/17 21:18 Dose: 0.5 mg Metoprolol Tartrate (Lopressor) 25 mg PO BID [facility] Last Admin: 05/27/17 09:49 Dose: 25 mg Mometasone Furoate (Asmanex [place]) 1 puff INH 1830 [facility] Last Admin: 05/26/17 19:50 Dose: 1 puff Morphine Sulfate (Morphine) 2 mg IV Q4H PRN PRN Reason: Moderate to Severe Pain (6-10) Last Admin: 05/26/17 21:20 Dose: 2 mg Ondansetron HCl (Zofran Odt) 8 mg PO Q6H PRN PRN Reason: Nausea/Vomiting Last Admin: 05/27/17 09:49 Dose: 8 mg Polyethylene Glycol (Miralax) 17 gm PO DAILY [facility] Last Admin: 05/26/17 08:40 Dose: 17 gm Potassium Chloride (Klor-Con 10) 10 meq PO BID-[facility] Stop: 05/30/17 17:01 Sodium Chloride (Flush - Normal Saline) 10 ml IVF Q12HR [facility] Last Admin: 05/26/17 21:21 Dose: 10 ml Sodium Chloride (Flush - Normal Saline) 10 ml IVF PRN PRN PRN Reason: Saline Flush Last Admin: 05/26/17 05:21 Dose: 10 ml
--- NOTE | 2017-05-27 18:53 | PRG ---
DATE OF SERVICE: 05/27/2017 SUBJECTIVE: This 61-year-old female being seen for hyponatremia. The patient denies any nausea, vom iting, or chest pain. PHYSICAL EXAMINATION: GENERAL: Patient is awake, alert. VITAL SIGNS: Afebrile, pulse 84, breathing at 16, blood pressure 132/84. GENERAL APPEARANCE AND MENTAL STATUS: Fair. HEAD/NECK: Normocephalic. Atraumatic. EYES: EOMI. No deformity. EARS: Clear. No ulcers. NOSE: Intact. No lesions. MOUTH: Clear. No discharge. THROAT: Clear. No exudate. LUNGS: Clear. No crackles. CARDIAC: S1, S2. No rub. ABDOMEN: Benign. BS+. GENITALIA/RECTUM: Ibanez absent. BACK/EXTREMITIES: Edema 0+ Ulcer- NEUROLOGICAL: Alert and motor intact. SKIN: Rash- Bruise- LYMPHATICS: Edema- Ulcer- LABORATORY DATA: Sodium 126. ASSESSMENT AND RECOMMENDATIONS: Hyponatremia due to syndrome of inappropriate antidiuretic hormone s ecretion, improving. we will recommend 1800 mL fluid restriction and rechecking sodium every 6-12 ho urs. I will sign off on this patient. Please reconsult as needed.
[2017-05-27] MEDS: Mometasone Furoate 120 PUFF 220 MCG INH SCH (20:09)
[2017-05-27] MEDS: Morphine 4 MG/ML VIAL IV PRN (21:00)
[2017-05-28] MEDS: Fluconazole 100 MG TAB PO SCH (08:39)
[2017-05-28] MEDS: Lisinopril 20 MG TAB PO SCH (08:39)
[2017-05-28] MEDS: Metoprolol Tartrate 25 MG TAB PO SCH ×2 (08:39→20:46)
[2017-05-28] MEDS: Potassium Chloride 10 MEQ TAB PO SCH ×2 (08:40→18:27)
[2017-05-28] MEDS: Dexamethasone 4 MG TAB PO SCH (08:41)
[2017-05-28] MEDS: Docusate 100 MG CAP PO SCH ×2 (08:41→20:55)
[2017-05-28] MEDS: Famotidine 20 MG TAB PO SCH ×2 (08:41→20:45)
[2017-05-28] MEDS: Polyethylene Glycol 3350 17 GM Packet PO SCH (08:42)
[2017-05-28] MEDS: Ondansetron ODT 8 MG TAB PO PRN ×2 (08:46→20:43)
[2017-05-28] MEDS: Enoxaparin Sodium 40 MG/0.4 ML SYRINGE SC SCH (08:50)
[2017-05-28] MEDS: Fluticasone Propionate Nasal Spray 16 gm Bottle NASAL SCH ×2 (08:50→20:46)
[2017-05-28] MEDS: Loratadine 10 MG TAB PO SCH (09:17)
[2017-05-28 10:53] LABS: Anion Gap 13 mmol/L (10-20); BUN (Urea Nitrogen) 9 mg/dL (9.8-20.1); Calc. Creatinine Clearance 103 mL/min (70-130); Calcium 9.9 mg/dL (7.8-10.44); Carbon Dioxide 26 mmol/L (23-31); Chloride 90 mmol/L (98-107); Estimated GFR-MDRD Greater than 90
--- NOTE | 2017-05-28 10:53 | PRG ---
DATE OF SERVICE: 05/28/2017 SUBJECTIVE: This 61-year-old female being seen for hyponatremia. The patient denies any nausea, vom iting, or chest pain. PHYSICAL EXAMINATION: GENERAL: Patient is awake, alert. VITAL SIGNS: Afebrile, pulse 92, breathing 16, blood pressure 122/80. HEAD/NECK: Normocephalic. Atraumatic. EYES: EOMI. No deformity. EARS: Clear. No ulcers. NOSE: Intact. No lesions. MOUTH: Clear. No discharge. THROAT: Clear. No exudate. LUNGS: Clear. No crackles. CARDIAC: S1, S2. No rub. ABDOMEN: Benign. BS+. GENITALIA/RECTUM: Ibanez absent. BACK/EXTREMITIES: Edema 0+ Ulcer- NEUROLOGICAL: Alert and motor intact. SKIN: Rash- Bruise- LYMPHATICS: Edema- Ulcer- LABORATORY DATA: Show sodium is pending. ASSESSMENT AND RECOMMENDATIONS: 1. Hypernatremia due to syndrome of inappropriate antidiuretic hormone secretion. We will recheck s odium again today. 2. Chronic kidney disease stage 1, stable. 3. Metastatic cancer. Overall, prognosis is extremely poor.
[2017-05-28] MEDS ORDERED: DEXAMETHASONE IVPB SCH (12:30)
[2017-05-28] MEDS ORDERED: SODIUM CHLORIDE IVPB SCH ×2 (12:30)
[2017-05-28] MEDS ORDERED: CARBOPLATIN IVPB SCH (12:30)
[2017-05-28] MEDS ORDERED: ETOPOSIDE IVPB SCH (12:30)
[2017-05-28] MEDS ORDERED: ADMIXTURE FEE IVPB SCH ×3 (12:30)
[2017-05-28] MEDS ORDERED: ONDANSETRON HCL IVPB SCH (12:30)
[2017-05-28] MEDS ORDERED: [UNRECOGNIZED DRUG - OTHER] IVPB SCH (12:30)
--- NOTE | 2017-05-28 12:58 | PRG ---
DATE OF SERVICE: 05/28/2017 SUBJECTIVE: The patient is seen and examined at the bedside. She is doing quite well, although she has some right flank pain. She does not have any nausea or vomiting. She is able to ambulate. She had her chemotherapy day #1 yesterday. OBJECTIVE: VITAL SIGNS: Blood pressure is 167/106, temperature is 98, pulse is 94, respiratory rate is 20 and O 2 saturation is 98% on room air. HEENT: Atraumatic and normocephalic. Pupils are responding to light properly. Sclerae is nonicteri c. Oral mucosa is moist. NECK: Supple. No lymphadenopathy. LUNGS: Clear. HEART: S1 and S2 normal. No S3, no S4. No murmur. ABDOMEN: Soft, although there are palpable irregularities in the right flank and mid portion of the abdomen. This most likely representing carcinomatosis to the peritoneum. EXTREMITIES: No clubbing, cyanosis or edema. NEUROLOGIC: She is alert and oriented x4. There is no new motor or sensory deficits present. Crani al nerves are intact. LABORATORY DATA: Showed sodium of 125, potassium 3.9, chloride 90, CO2 of 26, BUN 13, creatinine is 0.66, glucose 101 and calcium 9.9. Microbiology showed skin jarred on the urine cultures. No growth of bacterial cultures x2. Stool, fecal occult blood test was negative. IMPRESSION: 1. Pancreatic cancer with metastasis to the peritoneum. The patient received one dose of etoposide and carboplatin yesterday and she will have one dose today and one dose tomorrow, that is supervised by Dr. Jarquin. 2. Hyponatremia secondary to syndrome of inappropriate antidiuretic hormone secretion, on fluid rest riction. 3. Oral candidiasis, on fluconazole. 4. Hypophosphatemia and hypomagnesemia, improved. PLAN: Continue her chemotherapy. Continue fluid restriction. Continue antiemetics and antinausea a nd continue dexamethasone 4 mg. Continue deep venous thrombosis prophylaxis.
[2017-05-28] MEDS: Lorazepam 0.5 MG TAB PO PRN ×2 (14:51→21:31)
[2017-05-28] MEDS: Mometasone Furoate 120 PUFF 220 MCG INH SCH (19:26)
[2017-05-28] MEDS: hydrALAZINE 20 MG/ML VIAL SLOW IVP PRN (22:11)
[2017-05-29] MEDS: hydrALAZINE 20 MG/ML VIAL SLOW IVP PRN (04:03)
[2017-05-29] MEDS: Ondansetron ODT 8 MG TAB PO PRN ×2 (04:35→20:21)
[2017-05-29] MEDS: Acetaminophen 325 MG TAB PO PRN (04:35)
[2017-05-29 08:09] LABS: #Lymphocytes 1.4 thou/uL (1.20-3.40); #Monocytes 1.6 thou/uL (0.11-0.59); #Neutrophils 11.8 thou/uL (1.40-6.50); %Basophils 0.1 % (0.0-1.0); %Eosinophils 0.1 % (0.0-10.0); %Lymphocytes 9.7 % (21.0-51.0); %Monocytes 10.9 % (0.0-10.0); Hematocrit 39.6 % (36.0-47.0); Mean Platelet Volume 7.8 fL (7.4-10.4); Red Blood Cell (RBC) Count 4.21 mill/uL (4.20-5.40); White Blood Cell (WBC) Count 14.9 thou/uL (4.8-10.8)
[2017-05-29 08:29] LABS: Anion Gap 11 mmol/L (10-20); BUN (Urea Nitrogen) 11 mg/dL (9.8-20.1); Calc. Creatinine Clearance 133 mL/min (70-130); Calcium 9.1 mg/dL (7.8-10.44); Carbon Dioxide 25 mmol/L (23-31); Chloride 90 mmol/L (98-107); Estimated GFR-MDRD Greater than 90
[2017-05-29] MEDS ORDERED: Ondansetron HCl/PF 4 MG/2 ML Vial IVP SCH (09:45)
[2017-05-29] MEDS: Famotidine 20 MG TAB PO SCH ×2 (10:56→20:22)
[2017-05-29] MEDS: Polyethylene Glycol 3350 17 GM Packet PO SCH (10:56)
[2017-05-29] MEDS: Docusate 100 MG CAP PO SCH ×2 (10:56→21:18)
[2017-05-29] MEDS: Fluconazole 100 MG TAB PO SCH (10:56)
[2017-05-29] MEDS: Enoxaparin Sodium 40 MG/0.4 ML SYRINGE SC SCH (10:56)
[2017-05-29] MEDS: Lisinopril 20 MG TAB PO SCH (10:57)
[2017-05-29] MEDS: Dexamethasone 4 MG TAB PO SCH (10:57)
[2017-05-29] MEDS: Potassium Chloride 10 MEQ TAB PO SCH ×2 (10:57→16:03)
[2017-05-29] MEDS: Fluticasone Propionate Nasal Spray 16 gm Bottle NASAL SCH ×2 (10:57→21:18)
[2017-05-29] MEDS: Metoprolol Tartrate 25 MG TAB PO SCH ×2 (10:57→21:18)
[2017-05-29] MEDS: Loratadine 10 MG TAB PO SCH (10:57)
[2017-05-29] MEDS ORDERED: Tolvaptan 15 MG TAB PO SCH (12:00)
--- NOTE | 2017-05-29 12:12 | PRG ---
DATE OF SERVICE: 05/29/2017 SUBJECTIVE: The patient is seen and examined at bedside. She is nauseated. She was not able to sle ep last night because of some abdominal discomfort and nausea. OBJECTIVE: VITAL SIGNS: Blood pressure is 157/90, pulse is 120, temperature is 98.7, respiratory rate is 18, an d O2 saturation is 97. GENERAL: She looks sick. HEENT: Her conjunctiva is pinkish. Sclerae is nonicteric. Oral mucosa is somewhat dry. NECK: Supple. LUNGS: Clear. HEART: S1, S2 normal, no S3, no S4. Tachycardic. ABDOMEN: Soft, but there is a palpable mass approximately 1 x 2 inches in the midline in the umbilic al area along with some tenderness in the right upper quadrant and right flank. EXTREMITIES: No clubbing, cyanosis or edema. NEUROLOGIC: She is alert and oriented x4. There is no any motor or sensory deficit. Cranial nerves are intact. LABORATORY DATA: Showed white count of 14.9, hemoglobin of 13.1, hematocrit 39.6, platelet count is 385. Sodium of 123, potassium 3.4, chloride 90, CO2 of 25, BUN 11, creatinine 0.51, calcium 9.1. Mi crobiology, nothing new. IMPRESSION: 1. Pancreatic cancer with metastasis to the peritoneum. The patient is scheduled for the third dose of etoposide and carboplatin today. Dr. Bang is supervising this treatment since he is tongue and quarter stitcher t his weekend for Dr. Jarquin. 2. Nausea, most likely related to her chemotherapy and peritoneal metastasis with his antiemetics. 3. Hyponatremia secondary to inappropriate antidiuretic hormone secretion, on fluid restriction. Dr Sanket Zaldivar, implement mechanic is following that issue. 4. Oral candidiasis, on fluconazole. 5. Hypophosphatemia and hypomagnesemia, improved. PLAN: Continue her chemotherapy per oncologist's recommendation. Continue fluid restriction orally. Continue antiemetics, continue her dexamethasone and continue DVT prophylaxis and testing.
--- NOTE | 2017-05-29 12:38 | PRG ---
DATE OF SERVICE: 05/29/2017 SUBJECTIVE: This 61-year-old female being seen for hyponatremia. The patient denies any nausea, vom iting or chest pain. PHYSICAL EXAMINATION: GENERAL: Patient is awake, alert, in no acute distress. VITAL SIGNS: Afebrile, pulse 120, blood pressure 157/90. GENERAL APPEARANCE AND MENTAL STATUS: Fair. HEAD/NECK: Normocephalic. Atraumatic. EYES: EOMI. No deformity. EARS: Clear. No ulcers. NOSE: Intact. No lesions. MOUTH: Clear. No discharge. THROAT: Clear. No exudate. LUNGS: Clear. No crackles. CARDIAC: S1, S2. No rub. ABDOMEN: Benign. BS+. GENITALIA/RECTUM: Ibanez absent. BACK/EXTREMITIES: Edema 0+. Ulcer- NEUROLOGICAL: Alert and motor intact. SKIN: Rash- Bruise- LYMPHATICS: Edema-. Ulcer- LABORATORY: Sodium is 123, potassium 3.4. ASSESSMENT: 1. Hyponatremia because of syndrome of inappropriate antidiuretic hormone secretion and malignancy. Risks versus benefits of vaptans were discussed including liver failure. The patient agreed to take the medicine. I will recheck sodium at 3:00 this afternoon. 2. Hypokalemia. Recommend 40 mEq potassium replacement. We will also check magnesium. Overall, pr ognosis is extremely poor. 3. Hypoalbuminemia.
[2017-05-29 12:43] LABS: ALT (SGPT) 17 U/L (8-55); AST (SGOT) 37 U/L (5-34)
[2017-05-29] MEDS ORDERED: SODIUM CHLORIDE IVPB SCH ×2 (13:00)
[2017-05-29] MEDS ORDERED: ONDANSETRON HCL IVPB SCH (13:00)
[2017-05-29] MEDS ORDERED: ADMIXTURE FEE IVPB SCH ×3 (13:00)
[2017-05-29] MEDS ORDERED: CARBOPLATIN IVPB SCH (13:00)
[2017-05-29] MEDS ORDERED: ETOPOSIDE IVPB SCH (13:00)
[2017-05-29] MEDS ORDERED: [UNRECOGNIZED DRUG - OTHER] IVPB SCH (13:00)
[2017-05-29] MEDS ORDERED: DEXAMETHASONE IVPB SCH (13:00)
[2017-05-29 15:29] LABS: Anion Gap 11 mmol/L (10-20); BUN (Urea Nitrogen) 10 mg/dL (9.8-20.1); Calc. Creatinine Clearance 136 mL/min (70-130); Calcium 9.4 mg/dL (7.8-10.44); Carbon Dioxide 26 mmol/L (23-31); Chloride 92 mmol/L (98-107); Estimated GFR-MDRD Greater than 90; Magnesium 1.6 mg/dL (1.6-2.6)
[2017-05-29] MEDS: Lorazepam 0.5 MG TAB PO PRN (16:03)
[2017-05-29] MEDS: Mometasone Furoate 120 PUFF 220 MCG INH SCH (19:14)
[2017-05-30] MEDS: hydrALAZINE 20 MG/ML VIAL SLOW IVP PRN ×2 (01:46→12:01)
[2017-05-30] MEDS: SODIUM CHLORIDE 0.9% IVPB PRN ×2 (02:25→12:03)
[2017-05-30] MEDS: ONDANSETRON HCL IVPB PRN ×2 (02:25→12:03)
[2017-05-30] MEDS ORDERED: Promethazine HCl 25 MG in Sodium Chloride 0.9% 50 ML IVPB SCH (05:45)
[2017-05-30 10:12] LABS: Anion Gap 14 mmol/L (10-20); BUN (Urea Nitrogen) 9 mg/dL (9.8-20.1); Calc. Creatinine Clearance 133 mL/min (70-130); Calcium 9.5 mg/dL (7.8-10.44); Carbon Dioxide 24 mmol/L (23-31); Chloride 93 mmol/L (98-107); Estimated GFR-MDRD Greater than 90
[2017-05-30] MEDS: Lisinopril 20 MG TAB PO SCH (10:20)
[2017-05-30] MEDS: Metoprolol Tartrate 25 MG TAB PO SCH ×2 (10:21→21:29)
[2017-05-30] MEDS: Fluticasone Propionate Nasal Spray 16 gm Bottle NASAL SCH ×2 (11:08→21:45)
[2017-05-30] MEDS: Famotidine 20 MG TAB PO SCH ×2 (11:09→21:28)
[2017-05-30] MEDS: Loratadine 10 MG TAB PO SCH (11:09)
[2017-05-30] MEDS: Potassium Chloride 10 MEQ TAB PO SCH ×2 (11:09→17:49)
[2017-05-30] MEDS: Docusate 100 MG CAP PO SCH ×2 (11:09→21:29)
[2017-05-30] MEDS: Dexamethasone 4 MG TAB PO SCH (11:10)
[2017-05-30] MEDS: Polyethylene Glycol 3350 17 GM Packet PO SCH (11:10)
[2017-05-30] MEDS: Enoxaparin Sodium 40 MG/0.4 ML SYRINGE SC SCH (11:11)
[2017-05-30] MEDS: Fluconazole 100 MG TAB PO SCH (11:20)
[2017-05-30] MEDS ORDERED: Tolvaptan 15 MG TAB PO SCH (13:00)
--- NOTE | 2017-05-30 14:02 | PDOC.PN ---
- Subjective Encounter Start Date: 05/30/17 Encounter Start Time: 11:50 -: old records requested/rev PT seen and examined, chart reviewed in its entirety. This is my first visit with this patient Pt intolerant of po today. tried to eat breakfast, but threw it right up. Nauseated now. No F/C, no d/C, no BM in several days, refusing miralax as she threw it back up yesterday. Last dose of chemo yesterday, 05/27-05/29. Was seen earlier by oncology, awaiting recommendations. No F/C, no cough or sputum production 10 point ROS performed and neg for all except as per HPI - Objective Resuscitation Status: full MAR Reviewed: Yes Vital Signs & Weight: Vital Signs (12 hours) Temp Pulse Resp BP BP BP BP 05/30/17 12:36 140/74 05/30/17 12:01 170/110 H 05/30/17 12:00 98.4 F 114 H 18 170/110 H 05/30/17 10:20 177/99 H 05/30/17 08:00 99.0 F 117 H 17 05/30/17 07:50 99.0 F 117 H 17 172/99 H 05/30/17 04:00 97.6 F 115 H 16 170/94 H 05/30/17 02:30 119 H 149/76 H Pulse Ox 05/30/17 12:36 05/30/17 12:01 05/30/17 12:00 96 05/30/17 10:20 05/30/17 08:00 97 05/30/17 07:50 97 05/30/17 04:00 95 05/30/17 02:30 Weight Admit Weight 164 lb 14.832 oz Weight 162 lb 6.4 oz I&O: 05/29/17 05/30/17 05/31/17 06:59 06:59 06:59 Intake Total 1220 1060 Balance 1220 1060 Result Diagrams: 05/29/17 07:59 05/30/17 09:37 Radiology Reviewed by me: Yes EKG Reviewed by me: Yes Phys Exam - Physical Examination Constitutional: NAD HEENT: PERRLA, moist MMs, sclera anicteric, oral pharynx no lesions Neck: no nodes, no JVD, supple, full ROM Respiratory: no wheezing, no rales, no rhonchi, clear to auscultation bilateral Cardiovascular: RRR, no significant murmur, no rub Gastrointestinal: soft, non-tender, no distention scant bowel sounds Musculoskeletal: no edema, pulses present Neurological: non-focal, normal sensation, moves all 4 limbs Lymphatic: no nodes Psychiatric: normal affect, A&O x 3 Skin: no rash, normal turgor, cap refill <2 seconds Dx/Plan - Plan cont current plan of care, plan discussed w/ family, PT/OT * . add in scheduled IV reglan to see if it helps. Follow up on oncology recommendations
[2017-05-30] MEDS: Mometasone Furoate 120 PUFF 220 MCG INH SCH (18:35)
[2017-05-30] MEDS ORDERED: Potassium Chloride 20 MEQ TAB PO SCH (19:00)
--- NOTE | 2017-05-30 19:16 | PRG ---
DATE OF SERVICE: 05/30/2017 SUBJECTIVE: Patient was seen and examined at bedside and overnight events noted. Patient denies any shortness of breath or chest pain or palpitation. The patient was having some nausea this morning. OBJECTIVE: GENERAL: This is a well-built female in no apparent distress. VITAL SIGNS: Temperature 98.1, pulse 120, respiratory rate 18, blood pressure 164/80. HEENT: Atraumatic, normocephalic. Oral mucosa is moist. NECK: Supple. CARDIOVASCULAR: S1, S2 heard. Rate and rhythm regular. RESPIRATORY: Clear to auscultation. GASTROINTESTINAL: Abdomen is soft. MUSCULOSKELETAL: No tenderness. No edema. DERMATOLOGIC: No skin rash. NEUROLOGIC: Alert and awake and oriented x3. No focal neurologic deficits. Moving all the extremiti es. PSYCHIATRIC: Mood and affect normal. LABORATORY DATA: Sodium is 128, potassium is 3.2, and BUN is 9. ASSESSMENT AND PLAN: 1. Hyponatremia, most likely syndrome of inappropriate antidiuretic hormone secretion. Sodium level improved to 5 points after the tolvaptan. We will give another dose of tolvaptan 30 mg today. 2. Hypokalemia, replace and monitor. 3. Hypoalbuminemia. 4. Syndrome of inappropriate antidiuretic hormone secretion, limit fluid intake. 5. Repeat labs in the morning and replace potassium. We will follow.
[2017-05-30] MEDS: Ondansetron ODT 8 MG TAB PO PRN (20:30)
[2017-05-31] MEDS: Metoclopramide HCl 10 MG/2 ML VIAL IVP PRN ×2 (00:39→17:22)
[2017-05-31 04:58] LABS: #Monocytes 0.2 thou/uL (0.11-0.59); #Neutrophils 6.5 thou/uL (1.40-6.50); %Basophils 0.4 % (0.0-1.0); %Eosinophils 0.2 % (0.0-10.0); %Lymphocytes 13.4 % (21.0-51.0); %Monocytes 2.3 % (0.0-10.0); Hematocrit 39.3 % (36.0-47.0); Mean Platelet Volume 8.1 fL (7.4-10.4); Red Blood Cell (RBC) Count 4.16 mill/uL (4.20-5.40); White Blood Cell (WBC) Count 7.7 thou/uL (4.8-10.8)
[2017-05-31 05:21] LABS: Anion Gap 14 mmol/L (10-20); BUN (Urea Nitrogen) 9 mg/dL (9.8-20.1); Calc. Creatinine Clearance 138 mL/min (70-130); Calcium 9.2 mg/dL (7.8-10.44); Carbon Dioxide 23 mmol/L (23-31); Chloride 96 mmol/L (98-107); Estimated GFR-MDRD Greater than 90; Magnesium 1.8 mg/dL (1.6-2.6)
[2017-05-31] MEDS ORDERED: Potassium Chloride 20 MEQ TAB PO SCH (08:30)
[2017-05-31] MEDS ORDERED: Tolvaptan 15 MG TAB PO SCH (09:00)
[2017-05-31] MEDS: Polyethylene Glycol 3350 17 GM Packet PO SCH (09:01)
[2017-05-31] MEDS: Lisinopril 20 MG TAB PO SCH (09:02)
[2017-05-31] MEDS: Fluconazole 100 MG TAB PO SCH (09:02)
[2017-05-31] MEDS: Loratadine 10 MG TAB PO SCH (09:02)
[2017-05-31] MEDS: Metoprolol Tartrate 25 MG TAB PO SCH ×2 (09:02→21:17)
[2017-05-31] MEDS: Docusate 100 MG CAP PO SCH ×2 (09:02→21:17)
[2017-05-31] MEDS: Dexamethasone 4 MG TAB PO SCH (09:03)
[2017-05-31] MEDS: Famotidine 20 MG TAB PO SCH ×2 (09:03→21:17)
[2017-05-31] MEDS: Enoxaparin Sodium 40 MG/0.4 ML SYRINGE SC SCH (09:03)
[2017-05-31] MEDS: Fluticasone Propionate Nasal Spray 16 gm Bottle NASAL SCH ×2 (09:04→21:18)
--- NOTE | 2017-05-31 09:36 | PRG ---
Patient Name: DIETER RUST Date of service: 05/31/2017 Subjective: Patient was seen and examined at bedside and overnight events noted. Patient denies any shortness of breath or chest pain or palpitation. No history of nausea or vomiting or diarrhea or fever or chills or cramps. Objective: General: This is a well-built female in no apparent distress. Vital signs: Temperature 97.9, pulse 90, respiratory rate 18, blood pressure 162/102. HEENT: Atraumatic, normocephalic. Oral mucosa is moist. Neck: Supple. Cardiovascular: S1 S2 heard. Rate and rhythm regular. Respiratory: Clear to auscultation. Gastrointestinal: Abdomen is soft. Musculoskeletal: No tenderness. No edema. Dermatologic: No skin rash. Neurologic: Alert and awake and oriented X3. No focal neurologic deficits. Moving all the extremit ies. Psychiatric: Mood and affect normal. LABORATORY DATA: Sodium is 130, potassium is 3.4. ASSESSMENT AND PLAN: 1. Hyponatremia, most likely syndrome of inappropriate antidiuretic hormone secretion with history o f metastatic cancer. The plan is to continue on Tolvaptan. The patient does have elevated liver enz ymes, need to be monitored, will recheck CMP for the morning. 2. Elevated liver enzymes. 3. Hypokalemia. Replace and monitor. 4. Hypoalbuminemia. 5. Syndrome of inappropriate antidiuretic hormone secretion. 6. Metastatic pancreatic cancer. Follow with Oncology. 7. Continue oncology recommendations, continue Epogen. We will have Tolvaptan 1 more dose will cont inue fluid restriction 1 liter per day. We will follow.
--- NOTE | 2017-05-31 12:35 | PDOC.PN ---
- Subjective Encounter Start Date: 05/31/17 Encounter Start Time: 09:45 Pt feeling much better today, less nausea and no vomiting. Thinks reglan may have helped. No f/C, no D/C, no CP or SOB, no cough or sputum. Case discussed with Palliative care, thinks pt would benefit form an antidepressant. Effexor XR started 37.5mg daily. keeping down fluids and yogurt thus far today. 10 point ROS performed and neg for qall systems except as per HPI - Objective Resuscitation Status: on chart MAR Reviewed: Yes Vital Signs & Weight: Vital Signs (12 hours) Temp Pulse Resp BP BP BP Pulse Ox 05/31/17 12:30 148/84 H 148/84 H 05/31/17 11:25 97.5 F L 89 16 97 05/31/17 09:02 162/102 H 05/31/17 08:00 97.5 F L 89 16 162/102 H 98 Weight Admit Weight 164 lb 14.832 oz Weight 162 lb 6.4 oz I&O: 05/30/17 05/31/17 06/01/17 06:59 06:59 06:59 Intake Total 1060 760 Balance 1060 760 Result Diagrams: 05/31/17 04:45 05/31/17 04:44 Radiology Reviewed by me: Yes EKG Reviewed by me: Yes Phys Exam - Physical Examination Constitutional: NAD HEENT: PERRLA, moist MMs, sclera anicteric, oral pharynx no lesions no thrush Neck: no nodes, no JVD, supple, full ROM Respiratory: no wheezing, no rales, no rhonchi, clear to auscultation bilateral Cardiovascular: RRR, no significant murmur, no rub Gastrointestinal: soft, non-tender, no distention, positive bowel sounds Musculoskeletal: no edema, pulses present Neurological: non-focal, normal sensation, moves all 4 limbs Lymphatic: no nodes Psychiatric: normal affect, A&O x 3 Skin: no rash, normal turgor, cap refill <2 seconds Dx/Plan (1) Intractable nausea and vomiting Code(s): R11.2 - NAUSEA WITH VOMITING, UNSPECIFIED Status: Acute Comment: improved with reglan, improved bowel sounds today. continue IV today, to po when eating well (2) S/P chemotherapy, time since less than 4 weeks Code(s): Z92.21 - PERSONAL HISTORY OF ANTINEOPLASTIC CHEMOTHERAPY Status: Acute Comment: 05/27-05/29. Per Onc (3) HTN (hypertension) Code(s): I10 - ESSENTIAL (PRIMARY) HYPERTENSION Status: Chronic Qualifiers: Hypertension type: essential hypertension Qualified Code(s): I10 - Essential (primary) hypertension (4) Depression Code(s): F32.9 - MAJOR DEPRESSIVE DISORDER, SINGLE EPISODE, UNSPECIFIED Status : Acute Qualifiers: Depression Type: unspecified Qualified Code(s): F32.9 - Major depressive disorder, single episode, unspecified Comment: started Effexor XR 37.5 daily. (5) SIADH (syndrome of inappropriate ADH production) Status: Acute Comment: per renal. Tolvaptan. Na up to 130. fluid restriciton (6) Hyponatremia Code(s): E87.1 - HYPO-OSMOLALITY AND HYPONATREMIA Status: Acute (7) Oral candidiasis Code(s): B37.0 - CANDIDAL STOMATITIS Status: Resolved - Plan cont current plan of care, plan discussed w/ family, PT/OT, out of bed/ambulate * .
[2017-05-31] MEDS: Mometasone Furoate 120 PUFF 220 MCG INH SCH (19:40)
[2017-06-01] MEDS: Lorazepam 2 MG/ML VIAL SLOW IVP PRN (00:11)
[2017-06-01 06:30] LABS: ALT (SGPT) 13 U/L (8-55); AST (SGOT) 37 U/L (5-34); Alkaline Phosphatase 69 U/L (40-150); Anion Gap 11 mmol/L (10-20); BUN (Urea Nitrogen) 9 mg/dL (9.8-20.1); Calc. Creatinine Clearance 141 mL/min (70-130); Calcium 9.2 mg/dL (7.8-10.44); Carbon Dioxide 25 mmol/L (23-31); Chloride 93 mmol/L (98-107); Estimated GFR-MDRD Greater than 90; Protein, Total 6.7 g/dL (6.0-8.3)
[2017-06-01] MEDS: Famotidine 20 MG TAB PO SCH ×2 (08:00→21:00)
[2017-06-01] MEDS ORDERED: Magnesium 2 GM/NS 0.9% 50 ML 2 GM in Premix Bag 1 BAG IVPB SCH (08:00)
[2017-06-01] MEDS ORDERED: Magnesium 2 GM/NS 0.9% 100 ML 2 GM in Premix Bag 1 BAG IVPB SCH (08:00)
[2017-06-01] MEDS: Fluticasone Propionate Nasal Spray 16 gm Bottle NASAL SCH ×2 (08:04→20:58)
[2017-06-01] MEDS: Metoprolol Tartrate 25 MG TAB PO SCH ×2 (08:04→20:59)
[2017-06-01] MEDS: Enoxaparin Sodium 40 MG/0.4 ML SYRINGE SC SCH (08:05)
[2017-06-01] MEDS: Fluconazole 100 MG TAB PO SCH (08:05)
[2017-06-01] MEDS: Dexamethasone 4 MG TAB PO SCH (08:05)
[2017-06-01] MEDS: Loratadine 10 MG TAB PO SCH (08:05)
[2017-06-01] MEDS: Lisinopril 20 MG TAB PO SCH (08:05)
[2017-06-01] MEDS: Docusate 100 MG CAP PO SCH ×2 (08:07→21:00)
[2017-06-01] MEDS: Polyethylene Glycol 3350 17 GM Packet PO SCH (08:07)
[2017-06-01] MEDS: Potassium Chloride 20 MEQ TAB PO SCH ×3 (08:10→19:04)
--- NOTE | 2017-06-01 13:29 | PDOC.PN ---
- Subjective Encounter Start Date: 06/01/17 Encounter Start Time: 10:45 Pt hasnt had nasuea nor required reglan in 18 hours. No nasuea, no F/C, no CP or sOB, no appetite, note eating much. Sodium down to 126 toda,y Mag and K+ low and being replaced. Given Tolvaptan yestrday 15mg No cough or sputum producion, no sore throat, no new complaints. Small BM today , no diarrhea, not constipated Husdand at bedside and updated Case discussed with Dr Borden face to face, wants to recheck urine studies. Current thought is SIADH, but not volume up. 10 point ROS performed and neg for all systems except as per HPI - Objective Resuscitation Status: full MAR Reviewed: Yes Vital Signs & Weight: Vital Signs (12 hours) Temp Pulse Resp BP BP BP Pulse Ox 06/01/17 11:23 98.4 F 92 14 152/91 H 96 06/01/17 08:05 96.6 F L 121 H 16 162/80 H 162/80 H 98 06/01/17 08:00 96.6 F L 121 H 16 Weight Admit Weight 164 lb 14.832 oz Weight 162 lb 6.4 oz I&O: 05/31/17 06/01/17 06/02/17 06:59 06:59 06:59 Intake Total 760 860 200 Balance 760 860 200 Result Diagrams: 05/31/17 04:45 06/01/17 05:51 Radiology Reviewed by me: Yes EKG Reviewed by me: Yes Phys Exam - Physical Examination Constitutional: NAD HEENT: PERRLA, moist MMs, sclera anicteric, oral pharynx no lesions Neck: no nodes, no JVD, supple, full ROM Respiratory: no wheezing, no rales, no rhonchi, clear to auscultation bilateral Cardiovascular: RRR, no significant murmur, no rub Gastrointestinal: soft, non-tender, no distention, positive bowel sounds Musculoskeletal: no edema, pulses present Neurological: non-focal, normal sensation, moves all 4 limbs Lymphatic: no nodes Psychiatric: normal affect, A&O x 3 Skin: no rash, normal turgor, cap refill <2 seconds Dx/Plan (1) Intractable nausea and vomiting Code(s): R11.2 - NAUSEA WITH VOMITING, UNSPECIFIED Status: Acute Comment: improved with reglan, improved bowel sounds today. reglan q6 hours PRN (2) S/P chemotherapy, time since less than 4 weeks Code(s): Z92.21 - PERSONAL HISTORY OF ANTINEOPLASTIC CHEMOTHERAPY Status: Acute Comment: 05/27-05/29. Per Onc (3) HTN (hypertension) Code(s): I10 - ESSENTIAL (PRIMARY) HYPERTENSION Status: Chronic Qualifiers: Hypertension type: essential hypertension Qualified Code(s): I10 - Essential (primary) hypertension (4) Depression Code(s): F32.9 - MAJOR DEPRESSIVE DISORDER, SINGLE EPISODE, UNSPECIFIED Status : Acute Qualifiers: Depression Type: unspecified Qualified Code(s): F32.9 - Major depressive disorder, single episode, unspecified Comment: started Effexor XR 37.5 daily. (5) SIADH (syndrome of inappropriate ADH production) Status: Acute Comment: per renal. Tolvaptan. Na down to 130. 800ml fluid restriction. discussed with renal, going to recheck urine studies (6) Hyponatremia Code(s): E87.1 - HYPO-OSMOLALITY AND HYPONATREMIA Status: Acute (7) Oral candidiasis Code(s): B37.0 - CANDIDAL STOMATITIS Status: Resolved - Plan * .
[2017-06-01 14:12] LABS: Anion Gap 12 mmol/L (10-20); BUN (Urea Nitrogen) 10 mg/dL (9.8-20.1); Calc. Creatinine Clearance 133 mL/min (70-130); Carbon Dioxide 23 mmol/L (23-31); Chloride 91 mmol/L (98-107); Estimated GFR-MDRD Greater than 90; Magnesium 1.8 mg/dL (1.6-2.6)
[2017-06-01] MEDS: Metoclopramide HCl 10 MG/2 ML VIAL IVP PRN ×2 (16:34→20:58)
[2017-06-01 17:34] LABS: Osmolality, Urine 697 mOsm/kg (300-900)
[2017-06-01 17:47] LABS: Sodium, Urine 84 mmol/L (Not Available)
[2017-06-01] MEDS ORDERED: Tolvaptan 15 MG TAB PO SCH (19:00)
[2017-06-01] MEDS: Mometasone Furoate 120 PUFF 220 MCG INH SCH (19:04)
[2017-06-01] MEDS: Sodium Chloride 1 GM TAB PO SCH (20:50)
[2017-06-01] MEDS: Lorazepam 0.5 MG TAB PO PRN (20:59)
--- NOTE | 2017-06-01 21:52 | PRG ---
DATE OF SERVICE: 06/01/2017 SUBJECTIVE: Patient was seen and examined at bedside and overnight events noted. Patient denies any shortness of breath or chest pain or palpitation. No history of nausea or vomiting or diarrhea or f ever or chills or cramps. OBJECTIVE: GENERAL: This is a well-built female in no apparent distress. VITAL SIGNS: Temperature 90, pulse 115, respiratory rate 18 and blood pressure 158/96. HEENT: Atraumatic and normocephalic. Oral mucosa is moist. NECK: Supple. CARDIOVASCULAR: S1 and S2 heard. Rate and rhythm regular. RESPIRATORY: Clear to auscultation. GASTROINTESTINAL: Abdomen is soft. MUSCULOSKELETAL: No tenderness. No edema. DERMATOLOGIC: No skin rash. NEUROLOGIC: Alert, awake and oriented x3. No focal neurologic deficits. Moving all the extremities . PSYCHIATRIC: Mood and affect normal. LABORATORY DATA: Potassium is 4.0, sodium is 122, BUN is 10 and creatinine is 0.5. Urine studies: Urine osmolality is 695. Sodium is 84. ASSESSMENT AND PLAN: 1. Hyponatremia secondary to syndrome of inappropriate antidiuretic hormone secretion. Urine studie s strongly suggests syndrome of inappropriate antidiuretic hormone secretion. Continue on Tolvaptan . 2. Elevated liver enzymes. 3. Hypokalemia. 4. Hypoalbuminemia. 5. Syndrome of inappropriate antidiuretic hormone secretion. 6. Metastatic pancreatic cancer. Continue on chemo. We will continue on fluid restriction and Tolvaptan. We will add salt tablet too . We will follow.
[2017-06-02 04:12] LABS: #Lymphocytes 1.1 thou/uL (1.20-3.40); #Neutrophils 7.1 thou/uL (1.40-6.50); %Basophils 0.2 % (0.0-1.0); %Eosinophils 0.4 % (0.0-10.0); %Lymphocytes 13.5 % (21.0-51.0); %Monocytes 0.3 % (0.0-10.0); Mean Platelet Volume 7.7 fL (7.4-10.4); Red Blood Cell (RBC) Count 4.34 mill/uL (4.20-5.40); White Blood Cell (WBC) Count 8.3 thou/uL (4.8-10.8)
[2017-06-02 04:30] LABS: Anion Gap 13 mmol/L (10-20); BUN (Urea Nitrogen) 6 mg/dL (9.8-20.1); Calc. Creatinine Clearance 144 mL/min (70-130); Calcium 9.7 mg/dL (7.8-10.44); Carbon Dioxide 25 mmol/L (23-31); Chloride 93 mmol/L (98-107); Estimated GFR-MDRD Greater than 90; Magnesium 1.7 mg/dL (1.6-2.6)
[2017-06-02] MEDS: Metoclopramide HCl 10 MG/2 ML VIAL IVP PRN (07:38)
[2017-06-02] MEDS: Polyethylene Glycol 3350 17 GM Packet PO SCH (09:48)
[2017-06-02] MEDS: Docusate 100 MG CAP PO SCH ×2 (09:51→21:23)
[2017-06-02] MEDS: Metoprolol Tartrate 25 MG TAB PO SCH ×2 (09:51→21:23)
[2017-06-02] MEDS: Sodium Chloride 1 GM TAB PO SCH ×2 (09:51→15:07)
[2017-06-02] MEDS: Dexamethasone 4 MG TAB PO SCH (09:51)
[2017-06-02] MEDS: Loratadine 10 MG TAB PO SCH (09:52)
[2017-06-02] MEDS: Fluconazole 100 MG TAB PO SCH (09:52)
[2017-06-02] MEDS: Enoxaparin Sodium 40 MG/0.4 ML SYRINGE SC SCH (09:52)
[2017-06-02] MEDS: Famotidine 20 MG TAB PO SCH ×2 (09:52→21:23)
[2017-06-02] MEDS: Lisinopril 20 MG TAB PO SCH (09:52)
[2017-06-02] MEDS: Fluticasone Propionate Nasal Spray 16 gm Bottle NASAL SCH ×2 (09:53→21:21)
[2017-06-02] MEDS ORDERED: Metoclopramide HCl 10 MG/2 ML VIAL IVP PRN (10:07)
--- NOTE | 2017-06-02 10:31 | PRG ---
Patient Name: DIETER RUST Date of service: 06/02/2017 Subjective: Patient was seen and examined at bedside and overnight events noted. Patient denies any shortness of breath or chest pain or palpitation. No history of nausea or vomiting or diarrhea or fever or chills or cramps. Objective: General: This is a well-built female in no apparent distress. Vital signs: Temperature 98.2, pulse 103, respiratory rate 16, blood pressure 152/80. HEENT: Atraumatic, normocephalic. Oral mucosa is moist. Neck: Supple. Cardiovascular: S1 S2 heard. Rate and rhythm regular. Respiratory: Clear to auscultation. Gastrointestinal: Abdomen is soft. Musculoskeletal: No tenderness. No edema. Dermatologic: No skin rash. Neurologic: Alert and awake and oriented X3. No focal neurologic deficits. Moving all the extremit ies. Psychiatric: Mood and affect normal. LABORATORY DATA: Potassium is 3.5, sodium is 127, BUN 6, creatinine 0.4. ASSESSMENT AND PLAN: 1. Hyponatremia, most likely from syndrome of inappropriate antidiuretic hormone from the metastatic cancer. The plan is to give another dose of Tolvaptan 30 mg p.o. today. Continue on fluid restrict ion. Okay to send home on salt tablets 2 grams p.o. b.i.d. for a week and follow up with Dr. Zaldivar in 1 week and further disposition. The patient is highly for readmission given the frequent drop of so dium off of Tolvaptan. The patient does not have any insurance for Tolvaptan as outpatient. The pat ient was advised to limit fluid intake to 1 liter per day and continue salt tablet for a week. 2. Elevated liver enzymes, stable. 3. Hypokalemia 4. Hypoalbuminemia. 5. Syndrome of inappropriate antidiuretic hormone secretion. 6. Metastatic cancer. Plan is discussed with Dr. Manley, patient needs close monitoring, inpatient status, for readmission.
--- NOTE | 2017-06-02 10:45 | PDOC.PN ---
- Subjective Encounter Start Date: 06/02/17 Encounter Start Time: 09:45 Pt seen and exmained, nauseated earlier today, but kept down breakfast. afteri left the room, vomited up miralax, possibly AM meds given at 0950 No F/C, no CP or sOB, denies palpitations. Pt tachy, review of record showed normal rate until 05/28, then 110-130 since. EKG ordered. no abd pain, no GI bleeding. 10 point ROS performed and neg for all systems except as above - Objective MAR Reviewed: Yes Vital Signs & Weight: Vital Signs (12 hours) Temp Pulse Resp BP BP Pulse Ox 06/02/17 09:52 152/88 H 06/02/17 07:30 98.2 F 128 H 16 152/88 H 97 Weight Admit Weight 164 lb 14.832 oz Weight 162 lb 6.4 oz I&O: 06/01/17 06/02/17 06/03/17 06:59 06:59 06:59 Intake Total 860 620 60 Balance 860 620 60 Result Diagrams: 06/02/17 03:48 06/02/17 03:48 Radiology Reviewed by me: Yes EKG Reviewed by me: Yes Phys Exam - Physical Examination Constitutional: NAD HEENT: PERRLA, moist MMs, sclera anicteric, oral pharynx no lesions Neck: no nodes, no JVD, supple, full ROM Respiratory: no wheezing, no rales, no rhonchi, clear to auscultation bilateral Cardiovascular: no significant murmur, no rub tachy at 120 bpm Gastrointestinal: soft, non-tender, no distention, positive bowel sounds Musculoskeletal: no edema, pulses present Neurological: non-focal, normal sensation, moves all 4 limbs Lymphatic: no nodes Psychiatric: A&O x 3 Deviation from normal: flat affect Skin: no rash, normal turgor, cap refill <2 seconds Dx/Plan (1) Intractable nausea and vomiting Code(s): R11.2 - NAUSEA WITH VOMITING, UNSPECIFIED Status: Acute Comment: improved with reglan, improved bowel sounds today. nauseated this morning, then vomited at 1000. CCM at present. (2) S/P chemotherapy, time since less than 4 weeks Code(s): Z92.21 - PERSONAL HISTORY OF ANTINEOPLASTIC CHEMOTHERAPY Status: Acute Comment: 05/27-05/29. Per Onc (3) HTN (hypertension) Code(s): I10 - ESSENTIAL (PRIMARY) HYPERTENSION Status: Chronic Qualifiers: Hypertension type: essential hypertension Qualified Code(s): I10 - Essential (primary) hypertension Comment: controlled, CCM. On metoprolol (4) Depression Code(s): F32.9 - MAJOR DEPRESSIVE DISORDER, SINGLE EPISODE, UNSPECIFIED Status : Acute Qualifiers: Depression Type: unspecified Qualified Code(s): F32.9 - Major depressive disorder, single episode, unspecified Comment: started Effexor XR 37.5 daily. (5) SIADH (syndrome of inappropriate ADH production) Status: Acute Comment: per renal. Tolvaptan today 30mg. Na up to 127. 800ml fluid restriction. discussed with renal, still looks like SIADH, downt think she is significantly volume down (6) Hyponatremia Code(s): E87.1 - HYPO-OSMOLALITY AND HYPONATREMIA Status: Acute Comment: up to 127 today. NaCL tabs, tolvaptan, recheck (7) Oral candidiasis Code(s): B37.0 - CANDIDAL STOMATITIS Status: Resolved (8) Tachycardia Code(s): R00.0 - TACHYCARDIA, UNSPECIFIED Status: Acute Comment: EKG pending , 88 on EKG with admit in ER. Could be volume depleted due to fluid restriction, but Cr okay and nasiml thinks euvolemic. - Plan * .
[2017-06-02] MEDS ORDERED: Tolvaptan 15 MG TAB PO SCH (11:00)
[2017-06-02] MEDS: Metoclopramide HCl 10 MG TAB PO SCH ×3 (11:32→21:23)
[2017-06-02] MEDS ORDERED: Lorazepam 0.5 MG TAB PO PRN (15:01)
[2017-06-02 15:34] LABS: Anion Gap 13 mmol/L (10-20); BUN (Urea Nitrogen) 9 mg/dL (9.8-20.1); Calc. Creatinine Clearance 121 mL/min (70-130); Calcium 9.5 mg/dL (7.8-10.44); Carbon Dioxide 25 mmol/L (23-31); Chloride 93 mmol/L (98-107); Estimated GFR-MDRD Greater than 90
[2017-06-02] MEDS: Mometasone Furoate 120 PUFF 220 MCG INH SCH (19:08)
[2017-06-02] MEDS ORDERED: Sodium Chloride 1 GM TAB PO SCH (21:00)
[2017-06-03 05:52] LABS: #Lymphocytes 0.8 thou/uL (1.20-3.40); #Monocytes 0.1 thou/uL (0.11-0.59); #Neutrophils 6.6 thou/uL (1.40-6.50); %Basophils 0.2 % (0.0-1.0); %Eosinophils 0.2 % (0.0-10.0); %Lymphocytes 10.8 % (21.0-51.0); Hematocrit 44.4 % (36.0-47.0); Red Blood Cell (RBC) Count 4.66 mill/uL (4.20-5.40); White Blood Cell (WBC) Count 7.5 thou/uL (4.8-10.8)
[2017-06-03 05:54] LABS: Anion Gap 15 mmol/L (10-20); BUN (Urea Nitrogen) 7 mg/dL (9.8-20.1); Calc. Creatinine Clearance 133 mL/min (70-130); Calcium 10.4 mg/dL (7.8-10.44); Carbon Dioxide 27 mmol/L (23-31); Chloride 104 mmol/L (98-107); Estimated GFR-MDRD Greater than 90
[2017-06-03] MEDS: Fluconazole 100 MG TAB PO SCH (09:24)
[2017-06-03] MEDS: Famotidine 20 MG TAB PO SCH (09:24)
[2017-06-03] MEDS: Dexamethasone 4 MG TAB PO SCH (09:25)
[2017-06-03] MEDS: Metoprolol Tartrate 25 MG TAB PO SCH (09:25)
[2017-06-03] MEDS: Docusate 100 MG CAP PO SCH (09:25)
[2017-06-03] MEDS: Loratadine 10 MG TAB PO SCH (09:25)
[2017-06-03] MEDS: Lisinopril 20 MG TAB PO SCH (09:25)
[2017-06-03] MEDS: Enoxaparin Sodium 40 MG/0.4 ML SYRINGE SC SCH (09:27)
[2017-06-03] MEDS: Metoclopramide HCl 10 MG TAB PO SCH (09:30)
[2017-06-03] MEDS: Fluticasone Propionate Nasal Spray 16 gm Bottle NASAL SCH (09:31)
[2017-06-03] MEDS: Ondansetron ODT 8 MG TAB PO PRN (09:41)
[2017-06-03] MEDS: Polyethylene Glycol 3350 17 GM Packet PO SCH (10:27)
[2017-06-03 11:49] VITALS: BP 127/71; TEMP 98
--- NOTE | 2017-06-03 15:39 | PRG ---
DATE OF SERVICE: 06/03/2017 SUBJECTIVE: Patient was seen and examined at bedside and overnight events noted. Patient denies any shortness of breath or chest pain or palpitation. No history of nausea or vomiting or diarrhea or f ever or chills or cramps. OBJECTIVE: GENERAL: This is a well-built female in no apparent distress. VITAL SIGNS: Temperature 98.0, pulse 90, respiratory rate 18 and blood pressure 127/71. HEENT: Atraumatic and normocephalic. Oral mucosa is moist. NECK: Supple. CARDIOVASCULAR: S1 and S2 heard. Rate and rhythm regular. RESPIRATORY: Clear to auscultation. GASTROINTESTINAL: Abdomen is soft. MUSCULOSKELETAL: No tenderness. No edema. DERMATOLOGIC: No skin rash. NEUROLOGIC: Alert, awake and oriented x3. No focal neurologic deficits. Moving all the extremities . PSYCHIATRIC: Mood and affect normal LABORATORY DATA: Sodium is 143, BUN is 7 and potassium is 3.3. ASSESSMENT AND PLAN: 1. Hyponatremia secondary to syndrome of inappropriate antidiuretic hormone. Sodium level is better now. We will stop all the medication list of tolvaptan and increase IV fluid restriction to 1 liter per day 2. Hypokalemia, replace and monitor. 3. Hypoalbuminemia. 4. Anxiety. 5. Metastatic cancer. Okay to discharge home from nephrology standpoint. Continue salt tablets 2 grams p.o. b.i.d. startin g tomorrow. Follow up with Dr. Zaldivar in 3-5 days. We will follow.
== END 2017-06-03 16:10 | disposition home or self-care (01) | DRG 436 ==
LOC: ERS 16:18 → ONC 19:00 → 2SE 05-25 13:16 → 2NO 05-25 19:19 → ONC 05-26 19:48
PROVIDERS: ADMIT Family Medicine; ATTEND Family Medicine
DX: C25.9 Malignant neoplasm of pancreas, unspecified (principal); E22.2 Syndrome of inappropriate secretion of antidiuretic hormone; C78.6 Secondary malignant neoplasm of retroperitoneum and peritoneum; B37.0 Candidal stomatitis; R65.10 Systemic inflammatory response syndrome (SIRS) of non-infectious origin without acute organ dysfunction; E88.09 Other disorders of plasma-protein metabolism, not elsewhere classified; E86.0 Dehydration; E87.6 Hypokalemia; F41.9 Anxiety disorder, unspecified; K59.00 Constipation, unspecified; F32.9 Major depressive disorder, single episode, unspecified; R00.0 Tachycardia, unspecified; I16.0 Hypertensive urgency; I12.9 Hypertensive chronic kidney disease with stage 1 through stage 4 chronic kidney disease, or unspecified chronic kidney disease; N18.1 Chronic kidney disease, stage 1
CPT/HCPCS: 36415; 70450; 71010; 71260; 74000; 80048; 80053; 80069; 80202; 81003; 81015; 81025; 82274; 82378; 82533; 82553; 83615; 83690; 83735; 83930; 83935; 84100; 84300; 84443; 84450; 84460; 84484; 85025; 86301; 86316; 87040; 87086; 93005; 93010; 94664; 96361; 96374; 96375; A4216; J0360; J1100; J1650; J1885; J2060; J2270; J2274; J2405; J2550; J2765; J3370; J3475; J7050; J8540; J9045; J9181

== ENCOUNTER 2017-06-10 11:16 | Inpatient (IN) | payer OTHER, SELFPAY ==
[2017-06-10 12:29] LABS: Hematocrit 40.1 % (36.0-47.0); Mean Platelet Volume 7.1 fL (7.4-10.4); Red Blood Cell (RBC) Count 4.34 mill/uL (4.20-5.40)
[2017-06-10 12:39] LABS: Troponin I 0.015 ng/mL (< 0.028)
[2017-06-10 12:44] LABS: ALT (SGPT) 23 U/L (8-55); AST (SGOT) 62 U/L (5-34); Alkaline Phosphatase 71 U/L (40-150); Anion Gap 16 mmol/L (10-20); BUN (Urea Nitrogen) 6 mg/dL (9.8-20.1); Bilirubin, Total 0.3 mg/dL (0.2-1.2); CK (CPK) 82 U/L (29-168); Calc. Creatinine Clearance 0 mL/min (70-130); Calcium 9.8 mg/dL (7.8-10.44); Carbon Dioxide 25 mmol/L (23-31); Chloride 84 mmol/L (98-107); Estimated GFR-MDRD Greater than 90; Globulin 3.3 g/dL (2.4-3.5); Magnesium 1.4 mg/dL (1.6-2.6); Protein, Total 7.3 g/dL (6.0-8.3)
[2017-06-10 12:51] LABS: Band 6 % (5-11); Neutrophil 38 % (42-75)
[2017-06-10 12:59] LABS: Bilirubin Negative (Negative); Blood, Urine Negative (Negative); Glucose, Urine (Dipstick) Negative (Negative); Ketone, Urine > or equal to 80 mg/dL (Negative); Nitrite Negative (Negative); Protein, Urine (Dipstick) 100 mg/dL (Neg-Trace); Urobilinogen 0.2 mg/dL (0.2-1.0)
[2017-06-10 13:01] LABS: Bacteria/HPF None Seen HPF (None Seen)
[2017-06-10] MEDS ORDERED: Ondansetron HCl/PF 4 MG/2 ML Vial ONE (13:02)
[2017-06-10] MEDS ORDERED: Morphine 4 MG/ML VIAL ONE (13:02)
[2017-06-10 13:07] LABS: Hyaline Casts/LPF 0-3 HYALINE CAST LPF (0-3 Hyaline); Renal Epithelial None Seen HPF (0-3); Transitional Epithelial NONE SEEN HPF (0-3)
[2017-06-10] MEDS ORDERED: Potassium Chloride 20 MEQ TAB ONE (13:27)
[2017-06-10] MEDS ORDERED: Potassium Chloride 20 MEQ/100 ML PREMIX BAG ONE (13:27)
[2017-06-10] MEDS ORDERED: Tolvaptan 15 MG TAB PO SCH (14:00)
[2017-06-10] MEDS ORDERED: Ondansetron ODT 4 MG TAB SL PRN (16:42)
[2017-06-10] MEDS ORDERED: Ondansetron HCl/PF 4 MG/2 ML Vial IVP PRN ×2 (16:42→16:51)
[2017-06-10] MEDS ORDERED: Acetaminophen 500 MG TAB PO PRN (16:51)
[2017-06-10] MEDS ORDERED: Ondansetron ODT 4 MG TAB PO PRN (16:51)
[2017-06-10] MEDS ORDERED: Magnesium 2 GM/NS 0.9% 100 ML 2 GM in Premix Bag 1 BAG IVPB SCH (17:30)
[2017-06-10] MEDS: Morphine 4 MG/ML VIAL SLOW IVP PRN (19:13)
[2017-06-10] MEDS: Mometasone Furoate 120 PUFF 220 MCG INH SCH (19:44)
[2017-06-10] MEDS ORDERED: Potassium Chloride 20 MEQ TAB PO SCH (20:15)
[2017-06-10 20:51] LABS: Osmolality, Urine 412 mOsm/kg (300-900)
[2017-06-10] MEDS ORDERED: FLU VACC QS2017-18 36 mo. & older 0.5 ML SYRINGE IM ONE (21:00)
[2017-06-10] MEDS: Famotidine/PF 20 mg/2ml Vial SLOW IVP SCH (21:11)
[2017-06-10] MEDS: Metoprolol Tartrate 25 MG TAB PO SCH (21:11)
[2017-06-10 22:38] LABS: Sodium, Urine 36 mmol/L (Not Available)
--- NOTE | 2017-06-10 22:45 | HP ---
DATE OF ADMISSION: 06/10/2017 PRIMARY CARE PHYSICIAN: Dr. Brown. CHIEF COMPLAINT: Weakness, nausea, and vomiting. HISTORY OF PRESENT ILLNESS: This is a 61-year-old female with a significant history of palacios creatic adenocarcinoma and receiving current chemotherapy, last given approximately 4 weeks prior to this evaluation. Patient was recently hospitalized from 05/19/2017 to 06/03/2017 for protracted hypo natremia, intractable nausea and vomiting, and syndrome of inappropriate antidiuretic hormone. Durin g this admission, patient was treated with tolvaptan as well as given sodium restriction up to 800 mL per 24 hours and salt tablets supplement. Patient states she eventually returned to baseline functi onal status and returned home developing increasing fatigue, weakness, and loss of appetite over the last 24-48 hours. Patient apparently was seen by her primary transit department clerk, Dr. Zaldivar and noted with a bnormal sodium level referred to the emergency room for further evaluation. Patient underwent labora tory analysis showing sodium of 123, potassium 2.4. Patient received Samsca 15 mg x1 dose in the [facility] r[facility] room. Patient was placed on 800 mL per 24-hour fluid restriction and given IV potassium and Z ofran. Patient admits to some improvement in overall nausea and emesis with most prominent feature b eing fatigued. Patient denied any specific fever, chills, or exposure history. Patient denies any s pecific diarrhea or change to her bowel habits. PAST MEDICAL HISTORY: 1. 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 2. Syndrome of inappropriate antidiuretic hormone. 3. Hypokalemia. 4. Intermittent nausea and vomiting. 5. Hypertension. PAST SURGICAL HISTORY: 1. Status post partial pancreatectomy. 2. Status post oophorectomy. 3. Status post splenectomy. CURRENT MEDICATIONS: 1. Tylenol 650 mg 1 tab p.o. q.4-6 hours p.r.n. 2. Pulmicort Flexhaler 1 puff inhaled b.i.d. 3. Calcium citrate 400 mg p.o. daily. 4. Decadron 4 mg p.o. q.a.m. 5. Colace 100 mg 1 tab p.o. b.i.d. 6. Felicia Allergy 180 mg p.o. daily. 7. Lisinopril 20 mg 1 tab p.o. daily. 8. Metoprolol tartrate 50 mg p.o. b.i.d. 9. Zofran 8 mg p.o. q.6 hours p.r.n. nausea, vomiting. 10. MiraLax 17 grams p.o. as needed for constipation. 11. Pravachol 20 mg p.o. at bedtime. 12. Nasacort allergy 2 sprays in each naris b.i.d. ALLERGIES: OXYTETRACYCLINE. FAMILY HISTORY: No inheritable diseases per patient report. SOCIAL HISTORY: Patient resides in [place], [place]. No current tobacco or illicit drug use. History of social alcohol use. REVIEW OF SYSTEMS: The following complete review of systems was otherwise negative, except as stated per HPI: Constitutional: Weight loss or gain, ability to conduct usual activities. Skin: Rash, itching. Eyes: Double vision, pain. ENT/Mouth: Nose bleeding, neck stiffness, pain, tenderness. Cardiovascular: Palpitations, dyspnea on exertion, orthopnea. Respiratory: Shortness of breath, wheezing, cough, hemoptysis, fever, or night sweats. Gastrointestinal: Poor appetite, abdominal pain, heartburn, nausea, vomiting, constipation, or diarr hea. Genitourinary: Urgency, frequency, dysuria, nocturia. Musculoskeletal: Pain, swelling. Neurologic/Psychiatric: Anxiety, depression. Allergy/Immunologic: Skin rash, bleeding tendency. PHYSICAL EXAMINATION: VITAL SIGNS: Currently, blood pressure 143/98, pulse 115, respiratory rate 17, temperature 98.3 degr ees Fahrenheit, O2 saturation 96% on room air. GENERAL APPEARANCE: This is a 61-year-old female, ill appearing, alert and responsive. HEENT: Pupils are equal, round, and reactive to light and accommodation. Extraocular muscles are in tact. No scleral icterus, no conjunctival injection. Nares patent. OP is clear. Oral mucosa dry a ppearing. NECK: Supple, no cervical adenopathy, no thyromegaly, no carotid bruits, no JVD appreciated. Cervic al spine with full active and passive range of motion. CHEST: Lungs are clear to auscultation bilaterally. CARDIOVASCULAR: S1, S2 with distant heart sounds. Tachycardia noted. ABDOMEN: Distended with mild tenderness to palpation in the midepigastric region. Bowel sounds are positive in all four quadrants. EXTREMITIES: Warm and dry with fair turgor. No clubbing, cyanosis, or asymmetric edema appreciated. Pulses palpable distally at the dorsalis pedis, posterior tibial, and popliteal arteries bilaterall y. Capillary refill less than 2 seconds. NEUROLOGIC: Cranial nerves II-XII are grossly intact. No focal or lateralizing signs appreciated. PERTINENT LABORATORY DATA AND X-RAY FINDINGS: Sodium 123, potassium 2.4, chloride 84, CO2 of 25, BUN 6, creatinine 0.50, estimated GFR greater than 90, glucose 94, calcium 9.8, magnesium 1.4. Total bi lirubin 0.3, AST 62, ALT of 23, alkaline phosphatase 71, total CK of 82. Troponin I negative x1. Al bumin 4.0. CBC showed white blood cell count of 3.0, hemoglobin 13.5, hematocrit 40, platelet count 300 with 38% neutrophils. EKG dated 06/10/2017 by my interpretation shows sinus tachycardia with hea rt rates in the 120s. Normal R-wave progression noted in the precordial leads. Normal axis. No acu te ST-T wave changes appreciated. ASSESSMENT AND PLAN: 1. Severe hyponatremia. Patient will be admitted to the telemetry unit 2. History of syndrome of inappropriate antidiuretic hormone secretion. We will continue fluid rest riction at 800 mL per 24 hours. Continue with Samsca 15 mg p.o. x1 in the emergency room. Continue serial sodium assessment. Consult Nephrology service for further comanagement. 3. Intractable nausea and vomiting. Suspect multifactorial, given patient's history of pancreatic c arcinoma in addition to multiple electrolyte abnormalities. Continue treatment as outlined previousl y. Repeat sodium level in the a.m. 4. Severe hypokalemia. Continue potassium chloride supplementation and repeat potassium level in th e a.m. 5. Hypomagnesemia. Continue magnesium sulfate 2 grams IV x1 now and repeat magnesium level in the a .m. 6. Pancreatic carcinoma with current chemotherapy. We will continue symptomatic and supportive pierre gement. The pain control as clinically indicated. 7. Hypertension. Continue metoprolol 50 mg p.o. b.i.d. Continue to monitor blood pressure trend. 8. Prophylaxis. Sequential compression devices while in bed. Pepcid 20 mg IV q.12 hours. PT evalua tion for functional assessment. 9. Code status is FULL. Surrogate medical decision maker is the patient's daughter, Jessie Messer.
--- NOTE | 2017-06-11 01:58 | CON ---
DATE OF CONSULTATION: 06/10/2017 CONSULTING PHYSICIAN: Dr. Vivar. REASON FOR CONSULTATION: Hyponatremia. REASON FOR ADMISSION: Nausea and vomiting, weakness and abnormal labs. HISTORY OF PRESENT ILLNESS: This is a 61-year-old female with history of hypertension, neuroendocrin e tumor, came to the hospital with nausea and vomiting. She was recently discharged from the hospit al from hyponatremia and was 128 yesterday and today was only 124. Dr. Zaldivar advised her to come to [facility]. She was complaining of weakness, nausea, vomiting. Dr. Zaldivar was arranging tolvaptan. The patient started having vomiting. She was on fluid restriction at home per the family. No fever or chills. No chest pain, palpitation . PAST MEDICAL HISTORY: Positive for hypertension, hyponatremia, neuroendocrine tumor, SIADH. PAST SURGICAL HISTORY: Partial pancreatectomy, oophorectomy, splenectomy. HOME MEDICATIONS: Include calcium , budesonide, fexofenadine, Colace, Decadron, lisinopril, Zof ran, Lopressor, Nasacort. ALLERGIES: To OXYTETRACYCLINE. SOCIAL HISTORY: No smoking, alcohol or illicit drug abuse. FAMILY HISTORY: No history of any kidney disease. REVIEW OF SYSTEMS: The following complete review of systems was negative, unless otherwise mentioned in the HPI or below: Constitutional: Weight loss or gain, ability to conduct usual activities. Skin: Rash, itching. Ey es: Double vision, pain. ENT/Mouth: Nose bleeding, neck stiffness, pain, tenderness. Cardiovascul ar: Palpitations, dyspnea on exertion, orthopnea. Respiratory: Shortness of breath, wheezing, coug h, hemoptysis, fever or night sweats. Gastrointestinal: Poor appetite, abdominal pain, heartburn, n ausea, vomiting, constipation, or diarrhea. Genitourinary: Urgency, frequency, dysuria, nocturia. Musculoskeletal: Pain, swelling. Neurologic/Psychiatric: Anxiety, depression. Allergy/Immunologic : Skin rash, bleeding tendency. PHYSICAL EXAMINATION: GENERAL: This is a well-built female in no apparent distress. VITAL SIGNS: Temperature 98.3, pulse 100, blood pressure 142/98. HEENT: Atraumatic, normocephalic. Oral mucosa is moist. NECK: Supple, no masses. HEART: S1, S2 heard. Rate and rhythm regular. RESPIRATORY: Clear. GASTROINTESTINAL: Abdomen is soft. MUSCULOSKELETAL: No tenderness. No edema. DERMATOLOGIC: No skin rash. NEUROLOGIC: Alert, awake. PSYCHIATRIC: Mood and affect normal. LABORATORY FINDINGS: Sodium is 123 and 128 two days back. Potassium is 2.4, BUN 6, creatinine 0.5. ASSESSMENT AND PLAN: 1. Hyponatremia, most likely from syndrome of inappropriate antidiuretic hormone. We will check uri ne studies. This could be from hypovolemia too. The patient was started on Samsca by Dr. Zaldivar and o n fluid restriction. 2. Hypokalemia, replace and monitor. 3. Hypomagnesemia. 4. Syndrome of inappropriate antidiuretic hormone. 5. Neuroendocrine tumor. 6. Hypertension, stable. Plan is to check urine studies and continue to supplement potassium and magnesium. We will follow.
[2017-06-11] MEDS: Morphine 4 MG/ML VIAL SLOW IVP PRN ×3 (03:21→21:53)
[2017-06-11 05:23] LABS: ALT (SGPT) 23 U/L (8-55); AST (SGOT) 57 U/L (5-34); Alkaline Phosphatase 69 U/L (40-150); Anion Gap 16 mmol/L (10-20); BUN (Urea Nitrogen) 5 mg/dL (9.8-20.1); Bilirubin, Total 0.2 mg/dL (0.2-1.2); Calc. Creatinine Clearance 124 mL/min (70-130); Carbon Dioxide 24 mmol/L (23-31); Chloride 93 mmol/L (98-107); Estimated GFR-MDRD Greater than 90; Globulin 3.3 g/dL (2.4-3.5); Magnesium 2.2 mg/dL (1.6-2.6); Protein, Total 7.2 g/dL (6.0-8.3)
[2017-06-11 06:26] LABS: Mean Platelet Volume 7.4 fL (7.4-10.4); Neutrophil 40 % (42-75); Red Blood Cell (RBC) Count 4.29 mill/uL (4.20-5.40); White Blood Cell (WBC) Count 2.7 thou/uL (4.8-10.8)
[2017-06-11] MEDS ORDERED: Potassium Chloride 20 MEQ TAB PO SCH (09:00)
[2017-06-11] MEDS ORDERED: Calcium Citrate 950 MG TAB PO SCH (09:00)
[2017-06-11] MEDS ORDERED: Tolvaptan 15 MG TAB PO SCH (09:00)
[2017-06-11] MEDS: Metoprolol Tartrate 25 MG TAB PO SCH ×2 (09:06→21:46)
[2017-06-11] MEDS: Dexamethasone 4 MG TAB PO SCH (09:06)
[2017-06-11] MEDS: Potassium Chloride 20 MEQ TAB PO SCH ×2 (09:07→16:12)
[2017-06-11] MEDS: Fluticasone Propionate Nasal Spray 16 gm Bottle NASAL SCH (09:10)
[2017-06-11] MEDS: Famotidine/PF 20 mg/2ml Vial SLOW IVP SCH ×2 (09:10→21:45)
[2017-06-11 12:29] VITALS: BMI 23.3
[2017-06-11] MEDS ORDERED: Dextrose 5% in Water 1,000 ML IV PRN (17:28)
[2017-06-11] MEDS ORDERED: Dextrose 50% Abboject 50 ML SYRINGE SLOW IVP PRN (17:28)
[2017-06-11] MEDS ORDERED: Senokot 8.6 MG TAB PO PRN (18:12)
--- NOTE | 2017-06-11 19:52 | PRG ---
DATE OF SERVICE: 06/11/2017 SUBJECTIVE: Patient was seen and examined at bedside and overnight events noted. Patient denies any shortness of breath or chest pain or palpitation. No history of nausea or vomiting or diarrhea or f ever or chills or cramps. OBJECTIVE: GENERAL: This is a well-built female, in no apparent distress. VITAL SIGNS: Temperature 98.0, pulse 104, respiratory rate 20, blood pressure 162/90. HEENT: Atraumatic, normocephalic, Oral mucosa is moist. NECK: Supple. CARDIOVASCULAR: S1, S2 heard, rate and rhythm regular. RESPIRATORY: Clear to auscultation. GASTROINTESTINAL: Abdomen is soft. MUSCULOSKELETAL: No tenderness, no edema. DERMATOLOGIC: No skin rash. NEUROLOGIC: Alert and awake and oriented x3. No focal neurologic deficits. Moving all the extremit ies. PSYCHIATRIC: Mood and affect normal. LABORATORY DATA: Sodium is 129, potassium is 3.6, BUN is 5, creatinine is 0.4. ASSESSMENT AND PLAN: 1. Hyponatremia, most likely from syndrome of inappropriate antidiuretic hormone secretion with appr opriate correction with tolvaptan. Plan is to repeat another dose of tolvaptan 15 mg today if the pa tient most likely of acute hyponatremia. 2. Hypochloremia. 3. Hypertension, stable. 4. Syndrome of inappropriate antidiuretic hormone secretion. 5. Neuroendocrine tumor. The patient has been counseled to limit fluid intake, continue tolvaptan and plan is to give tolvapta n as outpatient as tolerated. We will follow.
[2017-06-11] MEDS: Mometasone Furoate 120 PUFF 220 MCG INH SCH (20:51)
[2017-06-11] MEDS: Docusate 100 MG CAP PO SCH (21:45)
[2017-06-11] MEDS ORDERED: cloNIDine 0.1 MG TAB PO PRN (21:51)
[2017-06-11] MEDS ORDERED: hydrALAZINE 20 MG/ML VIAL SLOW IVP PRN (21:51)
--- NOTE | 2017-06-11 21:53 | PDOC.PN ---
- Subjective Encounter Start Date: 06/11/17 Encounter Start Time: 16:00 Patient seen and examined. No new complaints. No overnight events. Nausea better. - Objective Resuscitation Status: Resuscitation Status FULL:Full Resuscitation MAR Reviewed: Yes Vital Signs & Weight: Vital Signs (12 hours) Temp Pulse Pulse Pulse Pulse Resp BP 06/11/17 20:51 120 H 16 06/11/17 19:00 98.3 F 107 H 18 06/11/17 17:22 106 H 114 H 106 H 128/100 H 06/11/17 16:11 BP BP BP BP Pulse Ox 06/11/17 20:51 97 06/11/17 19:00 140/100 H 95 06/11/17 17:22 180/116 H 164/110 H 06/11/17 16:11 162/98 H Weight Admit Weight 145 lb Weight 145 lb I&O: 06/10/17 06/11/17 06/12/17 06:59 06:59 06:59 Intake Total 440 500 Output Total 2125 Balance -1685 500 Result Diagrams: 06/11/17 04:40 06/11/17 04:40 EKG Reviewed by me: Yes (Tele SR) Phys Exam - Physical Examination Constitutional: NAD Respiratory: no wheezing, no rhonchi Cardiovascular: RRR, no rub Gastrointestinal: soft, non-tender, positive bowel sounds Musculoskeletal: no edema Dx/Plan - Plan DVT proph w/SCDs IMPRESSION: 1. Hyponatremia/SIADH 2. Hypokalemia 3. N/V/Gen weakness - multifactorial 4. HTN 5. Other issues per H&P PLAN: * Nephrology following * On Samsca * Cont fluid rest * AM labs * Add PRN BP meds Review of Systems - Review of Systems Respiratory: negative: Cough, Dry, Shortness of Breath, Hemoptysis, SOB with Excertion, Pleuritic Pain, Sputum, Wheezing Cardiovascular: negative: chest pain, palpitations, orthopnea, paroxysmal nocturnal dyspnea, edema, light headedness - Medications/Allergies Allergies/Adverse Reactions: Allergies Allergy/AdvReac Type Severity Reaction Status Date / Time oxytetracycline Allergy Verified 04/01/17 02:55 [From Terramycin] Medications: Current Medications Acetaminophen (Tylenol) 1,000 mg PO Q6H PRN PRN Reason: Headache/Fever or Mild Pain Calcium Citrate (Calcium Citrate) 1,900 mg PO DAILY [facility] Last Admin: 06/11/17 09:07 Dose: 1,900 mg Dexamethasone (Decadron) 4 mg PO QAM[facility] Last Admin: 06/11/17 09:06 Dose: 4 mg Dextrose/Water (Dextrose 50%) 25 gm SLOW IVP PRN PRN PRN Reason: Hypoglycemia Docusate Sodium (Colace) 100 mg PO BID [facility] Last Admin: 06/11/17 21:45 Dose: 100 mg Famotidine (Pepcid) 20 mg PO BID [facility] Fluticasone Propionate (Flonase Nasal [place]) 0 gm NASAL DAILY [facility] Last Admin: 06/11/17 09:10 Dose: 2 spr Glucagon (Glucagon) 1 mg IM PRN PRN PRN Reason: Hypoglycemia Dextrose/Water (D5w) 1,000 mls @ 0 mls/hr IV .Q0M PRN; As Directed PRN Reason: Hypoglycemia Metoprolol Tartrate (Lopressor) 50 mg PO BID [facility] Last Admin: 06/11/17 21:46 Dose: 50 mg Mometasone Furoate (Asmanex Twisthaler) 1 puff INH 1830 [facility] Last Admin: 06/11/17 20:51 Dose: 1 puff Morphine Sulfate (Morphine) 4 mg SLOW IVP Q4H PRN PRN Reason: Moderate to Severe Pain (6-10) Last Admin: 06/11/17 16:12 Dose: 4 mg Ondansetron HCl (Zofran Odt) 4 mg PO Q6H PRN PRN Reason: Nausea/Vomiting Ondansetron HCl (Zofran) 4 mg IVP Q6H PRN PRN Reason: Nausea/Vomiting Last Admin: 06/10/17 18:01 Dose: 4 mg [facility]assium [facility] ([facility]) [facility] Admin: 06/11/17 16:12 Dose: 40 meq Senna (Senokot) 2 tab PO HSPRN PRN PRN Reason: Constipation
[2017-06-12] MEDS: Morphine 4 MG/ML VIAL SLOW IVP PRN (04:04)
[2017-06-12 06:30] LABS: Anion Gap 15 mmol/L (10-20); BUN (Urea Nitrogen) 5 mg/dL (9.8-20.1); Calc. Creatinine Clearance 96 mL/min (70-130); Calcium 10.8 mg/dL (7.8-10.44); Carbon Dioxide 25 mmol/L (23-31); Estimated GFR-MDRD Greater than 90; Magnesium 2.3 mg/dL (1.6-2.6); Phosphorus 2.4 mg/dL (2.3-4.7)
[2017-06-12 06:41] LABS: Chloride 100 mmol/L (98-107)
[2017-06-12] MEDS ORDERED: Famotidine 20 MG TAB PO SCH (09:00)
[2017-06-12] MEDS: Docusate 100 MG CAP PO SCH (09:16)
[2017-06-12] MEDS: Dexamethasone 4 MG TAB PO SCH (09:16)
[2017-06-12] MEDS: Metoprolol Tartrate 25 MG TAB PO SCH (09:17)
[2017-06-12] MEDS: Fluticasone Propionate Nasal Spray 16 gm Bottle NASAL SCH (09:18)
[2017-06-12] MEDS ORDERED: Amlodipine 5 MG TAB PO SCH (12:00)
[2017-06-12 12:50] VITALS: BP 168/114; TEMP 98.1
--- NOTE | 2017-06-12 19:43 | DIS ---
DATE OF ADMISSION: 06/10/2017 DATE OF DISCHARGE: 06/12/2017 DISCHARGE DISPOSITION: Home. FOLLOWUP: 1. Follow up with primary care physician, Dr. Brown, in 1 week. 2. Follow up with Dr. Borden on next . 3. Base met next Tuesday is recommended. Primary care physician/Dr. Borden to follow. ALLERGIES: The patient is allergic to OXYTETRACYCLINE. The patient was seen and examined on the day of discharge. Denies any new complaints. No chest pain , shortness of breath, palpitations. The patient was advised to monitor her blood pressure twice a day. If blood pressure is persistently elevated, she was advised to call Dr. Borden. DISCHARGE MEDICATIONS: 1. Tylenol as needed. 2. Amlodipine 5 mg daily. 3. Pulmicort 180 mcg 1 puff b.i.d. 4. Calcium citrate 400 mg daily. 5. Decadron 4 mg daily. 6. Colace 100 mg b.i.d. 7. Felicia 180 mg daily. 8. Reglan 10 mg 4 times daily as needed. 9. Metoprolol tartrate 50 mg b.i.d. 10. Zofran as needed. 11. MiraLax 17 grams daily. 12. Potassium chloride 20 mEq p.o. daily. 13. Pravastatin 20 mg at bedtime. 14. Samsca 15 mg daily. 15. Nasacort 2 sprays in each naris b.i.d. INPATIENT DIRECTOR OF HOTEL: Nephrology, Dr. Borden. BRIEF HOSPITAL COURSE: The patient is a 61-year-old female with pancreatic neuroendocrine tumor, cur rently on chemotherapy, who presented to the emergency room with nausea, vomiting with generalized we akness. She was discharged from this facility earlier this month. Please refer to the history and p hysical for further details. The patient was admitted to the telemetry unit with a diagnosis of severe hyponatremia. Sodium on ad mission was 123 with a potassium of 2.4, magnesium of 1.4. As her hyponatremia was secondary to SIAD H that responded very well to Samsca. The patient was seen by Nephrology, Dr. Borden. Potassium an d magnesium have been corrected. Her nausea and vomiting have completely resolved. She has been arturo ared by Nephrology for discharge. She will follow up with Nephrology next week. FINAL DIAGNOSES: 1. Nausea, vomiting, and generalized weakness secondary to hyponatremia. 2. Syndrome of inappropriate antidiuretic hormone. The patient was advised to continue fluid restri ction. 3. Electrolyte imbalances including hypokalemia and hypomagnesemia. 4. Pancreatic endocrine cancer, currently on chemotherapy. 5. Hypertension. 6. Leukopenia. Plan of care was discussed with the patient in detail. She stated understanding. SIGNIFICANT LABORATORY DATA: Sodium at discharge is 135; lowest potassium was 2.4, at discharge 4.8; magnesium on admission was 1.4, at discharge 2.3.
--- NOTE | 2017-06-12 20:26 | PRG ---
DATE OF SERVICE: 06/13/2017 SUBJECTIVE: Patient was seen and examined at bedside and overnight events noted. Patient denies any shortness of breath or chest pain or palpitation. No history of nausea or vomiting or diarrhea or f ever or chills or cramps. OBJECTIVE: GENERAL: This is a well-built female in no apparent distress. VITAL SIGNS: Temperature 98.1, pulse 89, respiratory rate 20, blood pressure 168/140. HEENT: Atraumatic, normocephalic. Oral mucosa is moist. NECK: Supple. CARDIOVASCULAR: S1, S2 heard. Rate and rhythm regular. RESPIRATORY: Clear to auscultation. GASTROINTESTINAL: Abdomen is soft. MUSCULOSKELETAL: No tenderness. No edema. DERMATOLOGIC: No skin rash. NEUROLOGIC: Alert and awake and oriented x3. No focal neurologic deficits. Moving all the extremiti es. PSYCHIATRIC: Mood and affect normal. LABORATORY DATA: Sodium is 135, potassium is 4.8, BUN is 5, and creatinine 7.6. ASSESSMENT: 1. Hyponatremia secondary to syndrome of inappropriate antidiuretic hormone secretion. Patient is t o continue on fluid restriction, no indication for tolvaptan today. Sodium is 135. 2. Hyperchloremia, limit fluid intake. 3. Hypertension. 4. Diabetes. 5. Edema. PLAN: The patient okay to discharge home. The patient is okay to go home today. Patient and family is arranging for tolvaptan. Prescriptions given for tolvaptan for a week and we will also try for m edication assistance with [employer]. The patient was advised to follow up with the clinic in 1 week with BMP, magnesium, and phosphorus. The patient was also given Zofran. Hyperkalemia. Patient was given potassium supplements 20 mEq p.o. daily. Plan is to monitor sodium closely with fluid restriction. We will follow.
== END 2017-06-12 13:49 | disposition home or self-care (01) | DRG 644 ==
LOC: ERS 11:16 → 2NO 15:17
PROVIDERS: ADMIT Family Medicine; ATTEND Family Medicine
DX: E22.2 Syndrome of inappropriate secretion of antidiuretic hormone (principal); C25.9 Malignant neoplasm of pancreas, unspecified; E83.42 Hypomagnesemia; R11.2 Nausea with vomiting, unspecified; E87.6 Hypokalemia; E11.9 Type 2 diabetes mellitus without complications; I10 Essential (primary) hypertension; Z92.21 Personal history of antineoplastic chemotherapy; Z88.8 Allergy status to other drugs, medicaments and biological substances; Z90.411 Acquired partial absence of pancreas
CPT/HCPCS: 36415; 36416; 80048; 80053; 81003; 81015; 82553; 83735; 83930; 83935; 84100; 84300; 84484; 85007; 85025; 85027; 93005; 96365; 96375; G8978-GP-CJ; G8979-GP-CH; J2270; J2405; J3475; J3480; J8540; S0028

== ENCOUNTER 2017-06-22 10:52 | Day surgery (SDC) | payer MEDICAID, OTHER, SELFPAY ==
[2017-06-22] MEDS ORDERED: Sodium Chloride 0.9% 20 ML ONE (11:09)
[2017-06-22] MEDS ORDERED: ETOPOSIDE IVPB SCH ×2 (11:15→11:30)
[2017-06-22] MEDS ORDERED: SODIUM CHLORIDE 0.9% IVPB SCH ×4 (11:15→11:30)
[2017-06-22] MEDS ORDERED: SODIUM CHLORIDE 0.9% IVP SCH (11:30)
[2017-06-22] MEDS ORDERED: ONDANSETRON IVP SCH (11:30)
[2017-06-22] MEDS ORDERED: CARBOPLATIN IVPB SCH (11:30)
[2017-06-22] MEDS ORDERED: DEXAMETHASONE IVPB SCH (11:30)
[2017-06-22] MEDS ORDERED: hydrALAZINE 20 MG/ML VIAL SLOW IVP SCH (11:45)
[2017-06-22] MEDS ORDERED: D5 1/2 NS 500 ML IV SCH (14:00)
[2017-06-22 16:51] VITALS: BP 136/103
[2017-06-24] MEDS ORDERED: hydrALAZINE 20 MG/ML VIAL SLOW IVP PRN (11:35)
== END 2017-06-22 16:51 | disposition home or self-care (01) ==
LOC: ONC/OP 10:52
PROVIDERS: ATTEND Internal Medicine Medical Oncology
DX: Z51.11 Encounter for antineoplastic chemotherapy (principal); C7B.8 Other secondary neuroendocrine tumors; C25.4 Malignant neoplasm of endocrine pancreas; J90 Pleural effusion, not elsewhere classified; I10 Essential (primary) hypertension; E78.00 Pure hypercholesterolemia, unspecified; J45.909 Unspecified asthma, uncomplicated; Z88.1 Allergy status to other antibiotic agents; Z79.899 Other long term (current) drug therapy; Z90.721 Acquired absence of ovaries, unilateral; Z90.81 Acquired absence of spleen; Z90.410 Acquired total absence of pancreas; Z87.891 Personal history of nicotine dependence; Z80.0 Family history of malignant neoplasm of digestive organs
CPT/HCPCS: 96361; 96375; 96413; 96417; 99211; A4216; G0463; J0360; J1100; J1642; J2405; J7050; J9045; J9181

== ENCOUNTER 2017-06-23 10:01 | Day surgery (SDC) | payer MEDICAID, OTHER, SELFPAY ==
[2017-06-23] MEDS ORDERED: Dexamethasone 4 mg/ml Vial SLOW IVP SCH (10:45)
[2017-06-23] MEDS ORDERED: SODIUM CHLORIDE 0.9% IVPB SCH ×2 (11:00)
[2017-06-23] MEDS ORDERED: CARBOPLATIN IVPB SCH (11:00)
[2017-06-23] MEDS ORDERED: ETOPOSIDE IVPB SCH (11:00)
[2017-06-23 11:11] LABS: Sodium 163 mmol/L (136-145)
[2017-06-23] MEDS: Dextrose 5% in Water 1,000 ML IV SCH ×2 (11:20→12:26)
[2017-06-23] MEDS ORDERED: hydrALAZINE 20 MG/ML VIAL SLOW IVP PRN (11:29)
[2017-06-23] MEDS ORDERED: hydrALAZINE 20 MG/ML VIAL SLOW IVP SCH (11:30)
[2017-06-23] MEDS ORDERED: SODIUM CHLORIDE 0.9% IVP SCH (11:45)
[2017-06-23] MEDS ORDERED: ONDANSETRON IVP SCH (11:45)
[2017-06-23 13:07] VITALS: BP 146/91
== END 2017-06-23 15:59 | disposition home or self-care (01) ==
LOC: ONC/OP 10:01
PROVIDERS: ATTEND Internal Medicine Medical Oncology
DX: Z51.11 Encounter for antineoplastic chemotherapy (principal); C7B.8 Other secondary neuroendocrine tumors; E22.2 Syndrome of inappropriate secretion of antidiuretic hormone; I10 Essential (primary) hypertension; E78.00 Pure hypercholesterolemia, unspecified; J45.909 Unspecified asthma, uncomplicated; Z88.1 Allergy status to other antibiotic agents; Z79.899 Other long term (current) drug therapy; Z90.411 Acquired partial absence of pancreas; Z90.721 Acquired absence of ovaries, unilateral; Z90.81 Acquired absence of spleen; Z87.891 Personal history of nicotine dependence; Z80.0 Family history of malignant neoplasm of digestive organs
CPT/HCPCS: 36415; 84295; 96361; 96375; 96413; 96417; 99212; G0463; J0360; J1100; J2405; J7050; J9045; J9181

== ENCOUNTER 2017-06-24 10:12 | Day surgery (SDC) | payer MEDICAID, OTHER, SELFPAY ==
[2017-06-24] MEDS ORDERED: Sodium Chloride 0.9% 40 ML ONE (10:25)
[2017-06-24 11:15] LABS: Sodium 147 mmol/L (136-145)
[2017-06-24] MEDS ORDERED: ONDANSETRON IVP SCH (11:30)
[2017-06-24] MEDS ORDERED: SODIUM CHLORIDE 0.9% IVP SCH (11:30)
[2017-06-24] MEDS ORDERED: hydrALAZINE 20 MG/ML VIAL SLOW IVP PRN (11:36)
[2017-06-24] MEDS ORDERED: SODIUM CHLORIDE 0.9% IVPB SCH ×3 (11:45)
[2017-06-24] MEDS ORDERED: ETOPOSIDE IVPB SCH (11:45)
[2017-06-24] MEDS ORDERED: CARBOPLATIN IVPB SCH (11:45)
[2017-06-24] MEDS ORDERED: DEXAMETHASONE IVPB SCH (11:45)
[2017-06-24 11:48] VITALS: BP 156/113
[2017-06-24 14:29] VITALS: TEMP 97.3
== END 2017-06-24 15:47 | disposition home or self-care (01) ==
LOC: ONC/OP 10:12
PROVIDERS: ATTEND Internal Medicine Medical Oncology
DX: Z51.11 Encounter for antineoplastic chemotherapy (principal); C7B.8 Other secondary neuroendocrine tumors; C79.89 Secondary malignant neoplasm of other specified sites; J90 Pleural effusion, not elsewhere classified; I10 Essential (primary) hypertension; E78.00 Pure hypercholesterolemia, unspecified; J45.909 Unspecified asthma, uncomplicated; E22.2 Syndrome of inappropriate secretion of antidiuretic hormone; Z79.52 Long term (current) use of systemic steroids; Z79.51 Long term (current) use of inhaled steroids; Z79.899 Other long term (current) drug therapy; Z88.8 Allergy status to other drugs, medicaments and biological substances; Z90.5 Acquired absence of kidney; Z90.411 Acquired partial absence of pancreas; Z90.81 Acquired absence of spleen; Z90.721 Acquired absence of ovaries, unilateral; Z87.891 Personal history of nicotine dependence
CPT/HCPCS: 36415; 84295; 96375; 96413; 96417; A4216; J0360; J1100; J2405; J7050; J9045; J9181

== ENCOUNTER 2017-06-25 10:52 | Emergency (ER) | payer MEDICAID, OTHER ==
[2017-06-25 12:00] LABS: #Lymphocytes 1.2 thou/uL (1.20-3.40); #Monocytes 0.1 thou/uL (0.11-0.59); #Neutrophils 8.8 thou/uL (1.40-6.50); %Basophils 0.1 % (0.0-1.0); %Eosinophils 0.1 % (0.0-10.0); %Lymphocytes 11.7 % (21.0-51.0); %Neutrophils 87.1 % (42.0-75.0); Hemoglobin 12.7 g/dL (12.0-16.0); Mean Corpuscular HGB CONC 33.4 g/dL (32.0-36.0); Mean Corpuscular Hemoglobin 31.9 pg (27.0-31.0); Mean Corpuscular Volume 95.6 fl (81.0-99.0); Mean Platelet Volume 9.3 fL (7.4-10.4); Platelet Count 207 thou/uL (130-400); RBC Distribution Width 14.3 % (11.5-14.5); Red Blood Cell (RBC) Count 3.99 mill/uL (4.20-5.40); White Blood Cell (WBC) Count 10.1 thou/uL (4.8-10.8)
[2017-06-25 12:02] LABS: Bilirubin Negative (Negative); Blood, Urine Trace (Negative); Clarity CLEAR (Clear); Glucose, Urine (Dipstick) Negative (Negative); Leukocyte Negative (Negative); Nitrite Negative (Negative); Protein, Urine (Dipstick) 100 mg/dL (Neg-Trace); Specific Gravity, Urine 1.039 (1.002-1.036); Urobilinogen 0.2 mg/dL (0.2-1.0)
[2017-06-25 12:04] LABS: Bacteria/HPF None Seen HPF (None Seen); Hyaline Casts/LPF 4-6 HYALINE CAST LPF (0-3 Hyaline); Pathc Cast-AUWi Flag 0.94 (0-2.49); RBC/HPF 0-3 HPF (0-3); Squamous Epithelial 0-3 HPF (0-3); WBC/HPF 0-3 HPF (0-3)
[2017-06-25 12:15] LABS: Anion Gap 15 mmol/L (10-20); BUN (Urea Nitrogen) 18 mg/dL (9.8-20.1); Carbon Dioxide 28 mmol/L (23-31); Chloride 99 mmol/L (98-107); Sodium 140 mmol/L (136-145)
[2017-06-25 12:16] LABS: ALT (SGPT) 31 U/L (8-55); AST (SGOT) 125 U/L (5-34); Albumin 3.1 g/dL (3.4-4.8); Alkaline Phosphatase 112 U/L (40-150); Bilirubin, Total 0.4 mg/dL (0.2-1.2); Calc. Creatinine Clearance 0 mL/min (70-130); Calcium 9.2 mg/dL (7.8-10.44); Estimated GFR-MDRD 89; Globulin 3.1 g/dL (2.4-3.5); Glucose 101 mg/dL (80-115); Protein, Total 6.2 g/dL (6.0-8.3)
[2017-06-25 12:18] LABS: Potassium 1.9 mmol/L (3.5-5.1)
[2017-06-25 12:20] LABS: CKMB 1.8 ng/mL (0-6.6); Troponin I 0.021 ng/mL (< 0.028)
[2017-06-25] MEDS ORDERED: Potassium Chloride 40 MEQ in Sodium Chloride 0.9% 500 ML IVPB SCH ×2 (12:45→14:00)
--- NOTE | 2017-06-25 12:53 | RAD ---
PORTABLE CHEST: HISTORY: Syncope. COMPARISON: 05/25/17. FINDINGS: Lungs show no infiltrate or vascular congestion. Heart and mediastinum unremarkable. No interval ch patricia noted. IMPRESSION: No acute process identified. POS: [facility]
[2017-06-25] MEDS ORDERED: Magnesium Sulfate 2 GM/NS 0.9% 50 ML BAG ONE (12:55)
--- NOTE | 2017-06-25 12:59 | CT ---
CT HEAD WITHOUT CONTRAST: TECHNIQUE: Multiple axial tomograms obtained through the head without IV enhancement. HISTORY: Syncopal episode. The patient presented unresponsive but has since regained consciousness. History of pancreatic cancer with chemotherapy. FINDINGS: Ventricles are somewhat small. There is increased density seen in the region of the straight sinus and inferior sagittal sinus. The re is also some increased density along the inferior falx in the mid brain. No parenchymal hemorrhage or mass. Sulci appear somewhat prominent in both cerebral hemispheres whic h is worrisome for mild increased pressure. The paranasal sinuses and mastoids are clear. IMPRESSION: Increased density involving straight sinus and inferior sagittal sinus with some increased density al leon the inferior falx. Findings are concerning for dural venous thrombosis. I cannot exclude some s ubtle subarachnoid or subdural blood along the falx. Further evaluation with MRI with and without co ntrast is recommended. Findings were discussed with Dr. Tyson. CODE CR POS: [facility]
[2017-06-25] MEDS ORDERED: Labetalol HCl 100 MG/20 ML VIAL ONE (13:07)
--- NOTE | 2017-06-25 13:16 | CT ---
CTA CHEST 3D VOLUME RENDERING: CLINICAL HISTORY: Syncope. History of pancreatic cancer. FINDINGS: There is diffuse heterogeneity of the contrast bolus of the pulmonary trunk and main pulmonary arteri es. In addition, there is a rounded filling defect involving segmental branches serving the left low er lobe and, as well, there is mild generalized heterogeneity of the segmental branches of the right lower lobe. There is no lobar consolidation. Mild dependent atelectasis is seen at the lung bases i n addition to pleural-based thickening of the posterior right lung base. Thoracic aorta is nonaneury smal. There is incidental note of moderate distention of the gallbladder, incompletely assessed. Cobian rgical suture is seen at the gastric region. IMPRESSION: Generalized heterogeneity of the contrast bolus of the pulmonary arterial system, although there is a rounded filling defect notably within the segmental branches of the left lower lobe which does indic ate the appearance of acute pulmonary thromboembolism. POS: [facility]
--- NOTE | 2017-07-30 17:33 | EKG ---
Test Reason : Blood Pressure : / mmHG Vent. Rate : 090 BPM Atrial Rate : 090 BPM P-R Int : 150 ms QRS Dur : 100 ms QT Int : 454 ms P-R-T Axes : 048 004 070 degrees QTc Int : 555 ms Sinus rhythm with occasional Premature ventricular complexes Possible Left atrial enlargement Left ventricular hypertrophy Cannot rule out Inferior infarct , age undetermined Prolonged QT Abnormal ECG Confirmed by YANN GARZA ([id number]), video effects editor DEVAUGHN MORALES ([id number]) on 07/30/2017 5:33:04 PM Referred By: Confirmed By:AYNN GARZA
== END 2017-06-25 13:56 | disposition short-term general hospital (02) ==
LOC: ERS 10:52
DX: E87.6 Hypokalemia (principal); R55 Syncope and collapse; I82.409 Acute embolism and thrombosis of unspecified deep veins of unspecified lower extremity; C25.9 Malignant neoplasm of pancreas, unspecified; I26.99 Other pulmonary embolism without acute cor pulmonale; I10 Essential (primary) hypertension; Z79.899 Other long term (current) drug therapy
CPT/HCPCS: 36415; 51702; 70450; 71045; 71275; 80053; 81003; 81015; 82553; 83605; 83735; 84484; 85025; 93005; 96365; 96375; 99292; J3475; J3480; J7050